=== PATIENT | female | born 1950 | race Asian ===

== ENCOUNTER 2018-10-01 11:48 | Inpatient (IN) | payer MEDICAID, MEDICARE ==
[2018-10-01] VITALS (10 sets, daily range): BP systolic 142–181; BP diastolic 60–84
[~2018-10-01] VITALS: Ht 147.3 cm; Wt 58.7 kg
[2018-10-01 11:57] LABS: BASO % 0 % (0-3); EOS # 0.1 x10^3/uL (0.0-0.7); EOS % 1 % (0-3); HEMATOCRIT 37.8 % (36.0-47.0); HEMOGLOBIN 11.9 g/dL (12.0-15.5); LYMPH # 0.7 x10^3/uL (1.0-4.8); LYMPH % 12 % (24-48); MEAN CORPUSCULAR HEMOGLOBIN 28 pg (25-35); MEAN CORPUSCULAR HGB CONC 32 g/dL (31-37); MEAN CORPUSCULAR VOLUME 90 fL (79-100); MONO # 0.4 x10^3/uL (0.0-1.1); MONO % 7 % (0-9); NEUT # 4.4 x10^3uL (1.8-7.7); NEUT % 79 % (31-73); PLATELET COUNT 195 x10^3/uL (140-400); RED BLOOD COUNT 4.21 x10^6/uL (3.50-5.40); RED CELL DISTRIBUTION WIDTH 15.7 % (11.5-14.5); WHITE BLOOD COUNT 5.6 x10^3/uL (4.0-11.0)
--- NOTE | 2018-10-01 12:09 | RAD ---
Portable chest, 10/01/2018: HISTORY: Generalized weakness Comparison is made to a study from 07/31/2018. The heart is enlarged. There is calcific plaquing of the aorta. The pulmonary vascularity is normal. No pulmonary infiltrate is seen. There is no evidence of pleural fluid. IMPRESSION: 1. Cardiomegaly and aortic atherosclerosis. 2. No acute abnormality is detected. Electronically signed by: Slava Fragoso MD (10/01/2018 12:06 PM) [facility]
[2018-10-01 12:13] LABS: ALBUMIN 3.4 g/dL (3.4-5.0); CALCIUM 8.9 mg/dL (8.5-10.1); DIRECT BILIRUBIN 0.1 mg/dL (0.0-0.2); GFR 3.2; TOTAL BILIRUBIN 0.4 mg/dL (0.2-1.0); TOTAL PROTEIN 6.5 g/dL (6.4-8.2)
[2018-10-01 12:16] LABS: POTASSIUM 6.4 mmol/L (3.5-5.1)
--- NOTE | 2018-10-01 12:18 | PHYS DOC ---
Past Medical History Past Medical History: Hypertension Adult General Chief Complaint Chief Complaint: DIZZY/LIGHT HEADED HPI HPI ED course/MDM/ ROS. 68-year-old female presenting the emergency department today with generalized weakness. She had missed dialysis on Thursday and . She gets dialysis on Thursday. She lives in a longterm who called EMS. On arrival EMS of the patient was hypotensive around 90 systolic without a known baseline. They reported that her blood pressure improved with a small amount of Trendelenburg. She was alert and oriented when they arrived. Review of systems is negative for chest pain shortness of breath abdominal pain nausea vomiting. All other review of systems is negative. On arrival here the patient states does not speak Georgian. Blue phone utilized. She is alert and opens her eyes spontaneously. BP is up to 115-120 systolic. Blood work was drawn. Head CT and chest x-ray are unremarkable. EKG obtained and reviewed by myself shows sinus bradycardia with a prolonged QT. Otherwise ST segments show mild repolarization. Does not meet STEMI criteria. Not suggestive of ACS. Patient's potassium was quite elevated. We initiated calcium albuterol bicarbonate and glucose with insulin. I spoke with the organ teacher Dr. Gutierrez who will get the patient dialyzed today. In the interim, we will admit the patient to the intensive care unit for critically high potassium levels. Current Medications Current Medications Current Medications Medications (Trade) Dose Ordered Sig/Mic Start Time Stop Time Status Last Admin Dose Admin Albuterol Sulfate (Ventolin Neb Soln) 10 mg 1X ONCE 10/01/18 12:30 10/01/18 12:31 DC 10/01/18 12:57 10 MG Calcium Gluconate (Calcium Gluconate) 1,000 mg 1X ONCE 10/01/18 12:30 10/01/18 12:31 DC 10/01/18 13:17 1,000 MG Dextrose (Dextrose 50%-Water Syringe) 25 gm 1X ONCE 10/01/18 12:30 10/01/18 12:31 DC 10/01/18 13:08 25 GM Insulin Human Regular (HumuLIN R VIAL) 10 unit 1X ONCE 10/01/18 12:30 10/01/18 12:31 DC 10/01/18 13:15 10 UNIT Sodium Bicarbonate (Sodium Bicarb Adult 8.4% Syr) 50 meq 1X ONCE 10/01/18 12:30 10/01/18 12:31 DC 10/01/18 12:59 50 MEQ Allergies Allergies Allergies Coded Allergies Type Severity Reaction Last Updated Verified No Known Drug Allergies 10/01/18 No Physical Exam Physical Exam Constitutional: Well developed, well nourished, no acute distress, non-toxic appearance. [] HENT: Normocephalic, atraumatic, bilateral external ears normal, oropharynx moist, no oral exudates, nose normal. [] Eyes: PERRLA, EOMI, conjunctiva normal, no discharge. [] Neck: Normal range of motion, no tenderness, supple, no stridor. [] Cardiovascular:Heart rate regular rhythm, no murmur [] Lungs & Thorax: Bilateral breath sounds clear to auscultation [] Abdomen: Bowel sounds normal, soft, no tenderness, no masses, no pulsatile masses. [] Skin: Warm, dry, no erythema, no rash. [] Back: No tenderness, no CVA tenderness. [] Extremities: No tenderness, no cyanosis, no clubbing, ROM intact, no edema. [] Neurologic: Alert and oriented X 3, normal motor function, normal sensory function, no focal deficits noted. [] Psychologic: Affect normal, judgement normal, mood normal. [] Current Patient Data Vital Signs Vital Signs Date Time Temp Pulse Resp B/P (MAP) Pulse Ox O2 Delivery O2 Flow Rate FiO2 10/01/18 12:58 99 Room Air 10/01/18 11:48 98.6 59 14 116/52 (73) 98.6 Lab Values Laboratory Tests Test 10/01/18 11:50 White Blood Count 5.6 x10^3/uL (4.0-11.0) Red Blood Count 4.21 x10^6/uL (3.50-5.40) Hemoglobin 11.9 g/dL (12.0-15.5) L Hematocrit 37.8 % (36.0-47.0) Mean Corpuscular Volume 90 fL (79-100) Mean Corpuscular Hemoglobin 28 pg (25-35) Mean Corpuscular Hemoglobin Concent 32 g/dL (31-37) Red Cell Distribution Width 15.7 % (11.5-14.5) H Platelet Count 195 x10^3/uL (140-400) Neutrophils (%) (Auto) 79 % (31-73) H Lymphocytes (%) (Auto) 12 % (24-48) L Monocytes (%) (Auto) 7 % (0-9) Eosinophils (%) (Auto) 1 % (0-3) Basophils (%) (Auto) 0 % (0-3) Neutrophils # (Auto) 4.4 x10^3uL (1.8-7.7) Lymphocytes # (Auto) 0.7 x10^3/uL (1.0-4.8) L Monocytes # (Auto) 0.4 x10^3/uL (0.0-1.1) Eosinophils # (Auto) 0.1 x10^3/uL (0.0-0.7) Basophils # (Auto) 0.0 x10^3/uL (0.0-0.2) Sodium Level 138 mmol/L (136-145) Potassium Level 6.4 mmol/L (3.5-5.1) *H Chloride Level 99 mmol/L (98-107) Carbon Dioxide Level 18 mmol/L (21-32) L Anion Gap 21 (6-14) H Blood Urea Nitrogen 113 mg/dL (7-20) H Creatinine 12.0 mg/dL (0.6-1.0) H Estimated GFR (Cockcroft-Gault) 3.2 Glucose Level 103 mg/dL (70-99) H Calcium Level 8.9 mg/dL (8.5-10.1) Total Bilirubin 0.4 mg/dL (0.2-1.0) Direct Bilirubin 0.1 mg/dL (0.0-0.2) Aspartate Amino Transferase (AST) 22 U/L (15-37) Alanine Aminotransferase (ALT) 18 U/L (14-59) Alkaline Phosphatase 77 U/L (46-116) Troponin I Quantitative 0.017 ng/mL (0.000-0.055) UZ-Oqx-A-Type Natriuretic Peptide 52165 pg/mL (0-124) H Total Protein 6.5 g/dL (6.4-8.2) Albumin 3.4 g/dL (3.4-5.0) Lipase 133 U/L (73-393) Laboratory Tests 10/01/18 11:50 Laboratory Tests 10/01/18 11:50 EKG EKG [] Radiology/Procedures Radiology/Procedures [] Course & Med Decision Making Course & Med Decision Making Pertinent Labs and Imaging studies reviewed. (See chart for details) [] Dragon Disclaimer Dragon Disclaimer This electronic medical record was generated, in whole or in part, using a voice recognition dictation system. Departure Departure Impression: Primary Impression: Hyperkalemia Additional Impressions: Metabolic acidosis End stage renal disease Disposition: ADMITTED INPATIENT Admitting Physician: Riky Leach Critical Care Time Critical care time spent was 35 minutes exclusive of procedures. Time was spent evaluating the patient, ordering the administration of medications, reevaluating the patient, discussing with the admitting provider and documenting. Problem Qualifiers CHRIST NOBLES MD Oct 01, 2018 12:18
[2018-10-01] MEDS ORDERED: CALCIUM GLUCONATE 1,000 MG/10 ML VIAL. IVP ONE (12:30)
[2018-10-01] MEDS ORDERED: INSULIN REGULAR 100 UNIT/ML 3ML VIAL. IV ONE (12:30)
[2018-10-01] MEDS ORDERED: ALBUTEROL SULFATE 2.5 MG/3 ML NEBU. CONT NEB ONE (12:30)
[2018-10-01] MEDS ORDERED: SODIUM BICARB ADULT 8.4% 50 MEQ/50 ML DISP.SYRIN. IV ONE (12:30)
[2018-10-01] MEDS ORDERED: DEXTROSE 50% 25 GM / 50ML DISP.SYRIN. IV ONE (12:30)
--- NOTE | 2018-10-01 12:53 | RAD ---
CT HEAD WO CONTRAST History: Generalized weakness, dizziness Comparison: December 21, 2017 Technique: Noncontrast CT imaging was performed of the head. Exposure: One or more of the following individualized dose reduction techniques were utilized for this examination: 1. Automated exposure control 2. Adjustment of the mA and/or kV according to patient size 3. Use of iterative reconstruction technique. Findings: No acute extra-axial or parenchymal hemorrhage is identified. There is no significant intra-axial mass effect, midline shift, or extra-axial fluid collection. The kitchen-white differentiation of the major vascular territories is preserved. The ventricles, sulci, and cisterns are within normal limits in size and configuration. The mastoid air cells and the visualized paranasal sinuses are aerated. No acute calvarial abnormality is identified. There is atherosclerotic calcification bilateral carotid siphons and intradural vertebral arteries. Impression: 1. No acute intracranial abnormality is identified. Electronically signed by: Chaim Bennett MD (10/01/2018 12:50 PM) [id number]
--- NOTE | 2018-10-01 13:15 | PDOC1 ---
History and Physical Date of Admission Date of Admission DATE: 10/01/18 TIME: 13:15 Identification/Chief Complaint Chief Complaint SEEN IN ER ,,68-year-old female presenting the emergency department today with generalized weakness. She had missed dialysis on Thursday and . She gets dialysis on Thursday. She lives in a [facility] who called EMS. On arrival EMS of the patient was hypotensive around 90 systolic without a known baseline. They reported that her blood pressure improved with a small amount of Trendelenburg. She was alert and oriented when they arrived. Review of systems is negative for chest pain shortness of breath abdominal pain nausea vomiting. All other review of systems is negative. On arrival here the patient states does not speak [place]. Blue phone utilized. She is alert and opens her eyes spontaneously. BP is up to 115-120 systolic. Blood work was drawn. Head CT and chest x-ray are unremarkable ADMITTED TO ICU WITH SEVERE HYPERKALEMIA, URGENT DIALYSIS NEEDED Current Medications Current Medications Current Medications Sodium Bicarbonate (Sodium Bicarb Adult 8.4% Syr) 50 meq 1X ONCE IV Last administered on 10/01/18at 12:59; Start 10/01/18 at 12:30; Stop 10/01/18 at 12:31 ; Status DC Calcium Gluconate (Calcium Gluconate) 1,000 mg 1X ONCE IVP ; Start 10/01/18 at 12:30; Stop 10/01/18 at 12:31; Status DC Albuterol Sulfate (Ventolin Neb Soln) 10 mg 1X ONCE CONT NEB Last administered on 10/01/18at 12:57; Start 10/01/18 at 12:30; Stop 10/01/18 at 12:31 ; Status DC Insulin Human Regular (HumuLIN R VIAL) 10 unit 1X ONCE IV ; Start 10/01/18 at 12:30; Stop 10/01/18 at 12:31; Status DC Dextrose (Dextrose 50%-Water Syringe) 25 gm 1X ONCE IV Last administered on at 13:08; Start 10/01/18 at 12:30; Stop 10/01/18 at 12:31; Status DC Morphine Sulfate (Morphine Sulfate) 2 mg PRN Q2HR PRN IV PAIN; Start 10/01/18 at 13:15; Stop 10/02/18 at 13:14 Allergies Allergies: Coded Allergies: No Known Drug Allergies (Unverified , 4/19/19) ROS General: YES: Fatigue PSYCHOLOGICAL ROS: No: Anxiety, Behavioral Disorder, Concentration difficultie , Decreased libido, Depression, Disorientation, Hallucinations, Hostility, Irritablity, Memory difficulties, Mood Swings, Obsessive thoughts, Physical abuse, Sexual abuse, Sleep disturbances, Suicidal ideation, Other Eyes: No Blurry vision, No Decreased vision, No Double vision, No Dry eyes, No Excessive tearing, No Eye Pain, No Itchy Eyes, No Loss of vision, No Photophobia , No Scotomata, No Uses contacts, No Uses glasses, No Other HEENT: No: Heacaches, Visual Changes, Hearing change, Nasal congestion, Nasal discharge, Oral lesions, Sinus pain, Sore Throat, Epistaxis, Sneezing, Snoring, Tinnitus, Vertigo, Vocal changes, Other ALLERGY AND IMMUNOLOGY: No: Hives, Insect Bite Sensitivity, Itchy/Watery Eyes, Nasal Congestion, Post Nasal Drip, Seasonal Allergies, Other Hematological and Lymphatic: No: Bleeding Problems, Blood Clots, Blood Transfusions, Brusing, Night Sweats, Pallor, Swollen Lymph Nodes, Other ENDOCRINE: No: Breast Changes, Galactorrhea, Hair Pattern Changes, Hot Flashes , Malaise/lethargy, Mood Swings, Palpitations, Polydipsia/polyuria, Skin Changes , Temperature Intolerance, Unexpected Weight Changes, Other Breast: No New/Changing Breast Lumps, No Nipple changes, No Nipple discharge, No Other Respiratory: No: Cough, Hemoptysis, Orthopnea, Pleuritic Pain, Shortness of breath, SOB with excertion, Sputum Changes, Stridor, Tachypnea, Wheezing, Other Cardiovascular: No Chest Pain, No Palpitations, No Orthopnea, No Paroxysmal Noc. Dyspnea, No Edema, No Lt Headedness, No Other Musculoskeletal: Yes Joint Stiffness Neurological: Yes Dizziness; No Behavorial Changes, No Bowel/Bladder ControlChng, No Confusion, No Gait Disturbance, No Headaches, No Impaired Coord/balance, No Memory Loss, No Numbness/Tingling, No Seizures, No Speech Problems, No Tremors, No Visual Changes, No Weakness, No Other Skin: Yes Dry Skin; No Eczema, No Hair Changes, No Lumps, No Mole Changes, No Mottling, No Nail Changes, No Pruritus, No Rash, No Skin Lesion Changes, No Other, No Acne Physical Exam Physical Exam Physical Exam Physical Exam Constitutional: Well developed, well nourished, MOD acute distress, non-toxic appearance. [] HENT: Normocephalic, atraumatic, bilateral external ears normal, oropharynx moist, no oral exudates, nose normal. [] Eyes: PERRLA, EOMI, conjunctiva normal, no discharge. [] Neck: Normal range of motion, no tenderness, supple, no stridor. [] Cardiovascular:Heart rate regular rhythm, no murmur [] Lungs & Thorax: Bilateral breath sounds clear to auscultation [] Abdomen: Bowel sounds normal, soft, no tenderness, no masses, no pulsatile masses. [] Skin: Warm, dry, no erythema, no rash. [] Back: No tenderness, no CVA tenderness. [] Extremities: No tenderness, no cyanosis, no clubbing, ROM intact, no edema. [] Neurologic: Alert and oriented X 3, normal motor function, normal sensory function, no focal deficits noted. [] Psychologic: Affect normal, judgement normal, mood normal. [] General: Alert, Cooperative Lungs: Clear to auscultation Breasts: Not examined Rectal Exam: not examined PELVIC: Examination not indicated Extremities: No cyanosis Skin: No breakdown Vitals Vitals Vital Signs Date Time Temp Pulse Resp B/P (MAP) Pulse Ox O2 Delivery O2 Flow Rate FiO2 10/01/18 12:58 99 Room Air 10/01/18 11:48 98.6 59 14 116/52 (73) 98.6 Labs Labs Laboratory Tests Test 10/01/18 11:50 White Blood Count 5.6 x10^3/uL (4.0-11.0) Red Blood Count 4.21 x10^6/uL (3.50-5.40) Hemoglobin 11.9 g/dL (12.0-15.5) Hematocrit 37.8 % (36.0-47.0) Mean Corpuscular Volume 90 fL (79-100) Mean Corpuscular Hemoglobin 28 pg (25-35) Mean Corpuscular Hemoglobin Concent 32 g/dL (31-37) Red Cell Distribution Width 15.7 % (11.5-14.5) Platelet Count 195 x10^3/uL (140-400) Neutrophils (%) (Auto) 79 % (31-73) Lymphocytes (%) (Auto) 12 % (24-48) Monocytes (%) (Auto) 7 % (0-9) Eosinophils (%) (Auto) 1 % (0-3) Basophils (%) (Auto) 0 % (0-3) Neutrophils # (Auto) 4.4 x10^3uL (1.8-7.7) Lymphocytes # (Auto) 0.7 x10^3/uL (1.0-4.8) Monocytes # (Auto) 0.4 x10^3/uL (0.0-1.1) Eosinophils # (Auto) 0.1 x10^3/uL (0.0-0.7) Basophils # (Auto) 0.0 x10^3/uL (0.0-0.2) Sodium Level 138 mmol/L (136-145) Potassium Level 6.4 mmol/L (3.5-5.1) Chloride Level 99 mmol/L (98-107) Carbon Dioxide Level 18 mmol/L (21-32) Anion Gap 21 (6-14) Blood Urea Nitrogen 113 mg/dL (7-20) Creatinine 12.0 mg/dL (0.6-1.0) Estimated GFR (Cockcroft-Gault) 3.2 Glucose Level 103 mg/dL (70-99) Calcium Level 8.9 mg/dL (8.5-10.1) Total Bilirubin 0.4 mg/dL (0.2-1.0) Direct Bilirubin 0.1 mg/dL (0.0-0.2) Aspartate Amino Transf (AST/SGOT) 22 U/L (15-37) Alanine Aminotransferase (ALT/SGPT) 18 U/L (14-59) Alkaline Phosphatase 77 U/L (46-116) Troponin I Quantitative 0.017 ng/mL (0.000-0.055) HC-Nfa-T-Type Natriuretic Peptide 18685 pg/mL (0-124) Total Protein 6.5 g/dL (6.4-8.2) Albumin 3.4 g/dL (3.4-5.0) Lipase 133 U/L (73-393) Laboratory Tests Test 10/01/18 11:50 White Blood Count 5.6 x10^3/uL (4.0-11.0) Red Blood Count 4.21 x10^6/uL (3.50-5.40) Hemoglobin 11.9 g/dL (12.0-15.5) Hematocrit 37.8 % (36.0-47.0) Mean Corpuscular Volume 90 fL (79-100) Mean Corpuscular Hemoglobin 28 pg (25-35) Mean Corpuscular Hemoglobin Concent 32 g/dL (31-37) Red Cell Distribution Width 15.7 % (11.5-14.5) Platelet Count 195 x10^3/uL (140-400) Neutrophils (%) (Auto) 79 % (31-73) Lymphocytes (%) (Auto) 12 % (24-48) Monocytes (%) (Auto) 7 % (0-9) Eosinophils (%) (Auto) 1 % (0-3) Basophils (%) (Auto) 0 % (0-3) Neutrophils # (Auto) 4.4 x10^3uL (1.8-7.7) Lymphocytes # (Auto) 0.7 x10^3/uL (1.0-4.8) Monocytes # (Auto) 0.4 x10^3/uL (0.0-1.1) Eosinophils # (Auto) 0.1 x10^3/uL (0.0-0.7) Basophils # (Auto) 0.0 x10^3/uL (0.0-0.2) Sodium Level 138 mmol/L (136-145) Potassium Level 6.4 mmol/L (3.5-5.1) Chloride Level 99 mmol/L (98-107) Carbon Dioxide Level 18 mmol/L (21-32) Anion Gap 21 (6-14) Blood Urea Nitrogen 113 mg/dL (7-20) Creatinine 12.0 mg/dL (0.6-1.0) Estimated GFR (Cockcroft-Gault) 3.2 Glucose Level 103 mg/dL (70-99) Calcium Level 8.9 mg/dL (8.5-10.1) Total Bilirubin 0.4 mg/dL (0.2-1.0) Direct Bilirubin 0.1 mg/dL (0.0-0.2) Aspartate Amino Transf (AST/SGOT) 22 U/L (15-37) Alanine Aminotransferase (ALT/SGPT) 18 U/L (14-59) Alkaline Phosphatase 77 U/L (46-116) Troponin I Quantitative 0.017 ng/mL (0.000-0.055) EW-Avt-G-Type Natriuretic Peptide 97476 pg/mL (0-124) Total Protein 6.5 g/dL (6.4-8.2) Albumin 3.4 g/dL (3.4-5.0) Lipase 133 U/L (73-393) Images Images CT HEAD WO CONTRAST History: Generalized weakness, dizziness Comparison: December 21, 2017 Technique: Noncontrast CT imaging was performed of the head. Exposure: One or more of the following individualized dose reduction techniques were utilized for this examination: 1. Automated exposure control 2. Adjustment of the mA and/or kV according to patient size 3. Use of iterative reconstruction technique. Findings: No acute extra-axial or parenchymal hemorrhage is identified. There is no significant intra-axial mass effect, midline shift, or extra-axial fluid collection. The kitchen-white differentiation of the major vascular territories is preserved. The ventricles, sulci, and cisterns are within normal limits in size and configuration. The mastoid air cells and the visualized paranasal sinuses are aerated. No acute calvarial abnormality is identified. There is atherosclerotic calcification bilateral carotid siphons and intradural vertebral arteries. Impression: 1. No acute intracranial abnormality is identified. Electronically signed by: Chaim Bennett MD (10/01/2018 12:50 PM) [id number] VTE Prophylaxis Ordered VTE Prophylaxis Devices: Yes VTE Pharmacological Prophylaxi: Yes Assessment/Plan Assessment/Plan IMPRESSION ESRD ON DIALYSIS NONCOMPLIANCE WITH DIALYSIS hypertension PLAN ICU BED URGENT DIALYSIS Nephrology consult 43 MIN CC TIME JAS LAGUNA MD Oct 01, 2018 13:15
[2018-10-01] MEDS ORDERED: ASPI81TA50 PO (14:08)
[2018-10-01] MEDS ORDERED: SERT25TA PO (14:08)
[2018-10-01] MEDS ORDERED: LOSA-73 PO (14:08)
[2018-10-01] MEDS ORDERED: AMLO10TA8 PO (14:08)
[2018-10-01] MEDS ORDERED: CARV25TA2 PO (14:08)
[2018-10-01] MEDS ORDERED: SODI650T PO (14:08)
[2018-10-01] MEDS ORDERED: CLOP75TA PO (14:08)
[2018-10-01] MEDS ORDERED: CRESTOR10 MG PO (14:08)
[2018-10-01] MEDS ORDERED: SEVE800T9 PO (14:08)
[2018-10-01] MEDS ORDERED: LOPE2CAP PO (14:08)
--- NOTE | 2018-10-01 14:29 | PDOC2 ---
CONSULT Date of Consult Date of Consult DATE: 10/01/18 TIME: 14:18 Reason for Consult Reason for Consult: ESRD Source Source: Chart review, Patient History of Present Illness Reason for Visit: Hx Obtained from chart review, Pt doesn't speak citizen of [place]-- 68-year-old female presenting the emergency department today with generalized weakness. She had missed dialysis on Thursday and . She lives in a shelter who called EMS. On arrival EMS of the patient was hypotensive around 90 systolic without a known baseline. They reported that her blood pressure improved with a small amount of Trendelenburg. She was alert and oriented when they arrived. No chest pain shortness of breath abdominal pain nausea vomiting. All other review of systems is negative. She is alert and opens her eyes spontaneously. BP up to 115-120 systolic in ED[address]Head CT and chest x-ray are unremarkable. EKG read by ER MD shows sinus bradycardia with a prolonged QT. Otherwise ST segments show mild repolarization. Blood work High K, BUN , Low bicarb , given calcium albuterol bicarbonate and glucose with insulin Seen on HD tolerating well. Current Problem List Problem List Problems Medical Problems: (1) End stage renal disease Status: Acute (2) Hyperkalemia Status: Acute (3) Metabolic acidosis Status: Acute Current Medications Current Medications Current Medications Sodium Bicarbonate (Sodium Bicarb Adult 8.4% Syr) 50 meq 1X ONCE IV Last administered on 10/01/18at 12:59; Start 10/01/18 at 12:30; Stop 10/01/18 at 12:31 ; Status DC Calcium Gluconate (Calcium Gluconate) 1,000 mg 1X ONCE IVP Last administered on 10/01/18at 13:17; Start 10/01/18 at 12:30; Stop 10/01/18 at 12:31; Status DC Albuterol Sulfate (Ventolin Neb Soln) 10 mg 1X ONCE CONT NEB Last administered on 10/01/18at 12:57; Start 10/01/18 at 12:30; Stop 10/01/18 at 12:31 ; Status DC Insulin Human Regular (HumuLIN R VIAL) 10 unit 1X ONCE IV Last administered on 10/01/18at 13:15; Start 10/01/18 at 12:30; Stop 10/01/18 at 12:31; Status DC Dextrose (Dextrose 50%-Water Syringe) 25 gm 1X ONCE IV Last administered on at 13:08; Start 10/01/18 at 12:30; Stop 10/01/18 at 12:31; Status DC Morphine Sulfate (Morphine Sulfate) 2 mg PRN Q2HR PRN IV PAIN; Start 10/01/18 at 13:15; Stop 10/02/18 at 13:14 Active Scripts Active Reported Loperamide (Loperamide Hcl) 2 Mg Capsule 2 Mg PO PRN Sodium Bicarbonate 650 Mg Tablet 2 Tab PO BID Renvela (Sevelamer Carbonate) 800 Mg Tablet 3 Tab PO TID Zoloft (Sertraline Hcl) 25 Mg Tablet 1 Tab PO DAILY Crestor (Rosuvastatin Calcium) 10 Mg Tablet 10 Mg PO HS Losartan Potassium 50 Mg Tablet 50 Mg PO BID Clopidogrel (Clopidogrel Bisulfate) 75 Mg Tablet 1 Tab PO DAILY Carvedilol 25 Mg Tablet 25 Mg PO BIDWMEALS Aspir-Low (Aspirin) 81 Mg Tablet.dr 1 Tab PO DAILY Amlodipine Besylate 10 Mg Tablet 10 Mg PO DAILY Allergies Allergies: Coded Allergies: No Known Drug Allergies (Unverified , 10/01/18) ROS Review of System Ass per HPI, rest unable to Obtain Physical Exam Physical Exam GEN: NAD HEEN: OM moist NECK: supple CVS: S1S2, RESP: No Rales, No Rhonchi,No Acc. 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 Hyperkalemia- Temporizing measures in ER HD today Metabolic acidosis - HD Hypotensive in [place] BP improved in ER Multiple antihypertensives per home med list Labs Labs Laboratory Tests Test 10/01/18 11:50 White Blood Count 5.6 x10^3/uL (4.0-11.0) Red Blood Count 4.21 x10^6/uL (3.50-5.40) Hemoglobin 11.9 g/dL (12.0-15.5) Hematocrit 37.8 % (36.0-47.0) Mean Corpuscular Volume 90 fL (79-100) Mean Corpuscular Hemoglobin 28 pg (25-35) Mean Corpuscular Hemoglobin Concent 32 g/dL (31-37) Red Cell Distribution Width 15.7 % (11.5-14.5) Platelet Count 195 x10^3/uL (140-400) Neutrophils (%) (Auto) 79 % (31-73) Lymphocytes (%) (Auto) 12 % (24-48) Monocytes (%) (Auto) 7 % (0-9) Eosinophils (%) (Auto) 1 % (0-3) Basophils (%) (Auto) 0 % (0-3) Neutrophils # (Auto) 4.4 x10^3uL (1.8-7.7) Lymphocytes # (Auto) 0.7 x10^3/uL (1.0-4.8) Monocytes # (Auto) 0.4 x10^3/uL (0.0-1.1) Eosinophils # (Auto) 0.1 x10^3/uL (0.0-0.7) Basophils # (Auto) 0.0 x10^3/uL (0.0-0.2) Sodium Level 138 mmol/L (136-145) Potassium Level 6.4 mmol/L (3.5-5.1) Chloride Level 99 mmol/L (98-107) Carbon Dioxide Level 18 mmol/L (21-32) Anion Gap 21 (6-14) Blood Urea Nitrogen 113 mg/dL (7-20) Creatinine 12.0 mg/dL (0.6-1.0) Estimated GFR (Cockcroft-Gault) 3.2 Glucose Level 103 mg/dL (70-99) Calcium Level 8.9 mg/dL (8.5-10.1) Total Bilirubin 0.4 mg/dL (0.2-1.0) Direct Bilirubin 0.1 mg/dL (0.0-0.2) Aspartate Amino Transf (AST/SGOT) 22 U/L (15-37) Alanine Aminotransferase (ALT/SGPT) 18 U/L (14-59) Alkaline Phosphatase 77 U/L (46-116) Troponin I Quantitative 0.017 ng/mL (0.000-0.055) MD-Xnn-Y-Type Natriuretic Peptide 31077 pg/mL (0-124) Total Protein 6.5 g/dL (6.4-8.2) Albumin 3.4 g/dL (3.4-5.0) Lipase 133 U/L (73-393) Laboratory Tests Test 10/01/18 11:50 White Blood Count 5.6 x10^3/uL (4.0-11.0) Red Blood Count 4.21 x10^6/uL (3.50-5.40) Hemoglobin 11.9 g/dL (12.0-15.5) Hematocrit 37.8 % (36.0-47.0) Mean Corpuscular Volume 90 fL (79-100) Mean Corpuscular Hemoglobin 28 pg (25-35) Mean Corpuscular Hemoglobin Concent 32 g/dL (31-37) Red Cell Distribution Width 15.7 % (11.5-14.5) Platelet Count 195 x10^3/uL (140-400) Neutrophils (%) (Auto) 79 % (31-73) Lymphocytes (%) (Auto) 12 % (24-48) Monocytes (%) (Auto) 7 % (0-9) Eosinophils (%) (Auto) 1 % (0-3) Basophils (%) (Auto) 0 % (0-3) Neutrophils # (Auto) 4.4 x10^3uL (1.8-7.7) Lymphocytes # (Auto) 0.7 x10^3/uL (1.0-4.8) Monocytes # (Auto) 0.4 x10^3/uL (0.0-1.1) Eosinophils # (Auto) 0.1 x10^3/uL (0.0-0.7) Basophils # (Auto) 0.0 x10^3/uL (0.0-0.2) Sodium Level 138 mmol/L (136-145) Potassium Level 6.4 mmol/L (3.5-5.1) Chloride Level 99 mmol/L (98-107) Carbon Dioxide Level 18 mmol/L (21-32) Anion Gap 21 (6-14) Blood Urea Nitrogen 113 mg/dL (7-20) Creatinine 12.0 mg/dL (0.6-1.0) Estimated GFR (Cockcroft-Gault) 3.2 Glucose Level 103 mg/dL (70-99) Calcium Level 8.9 mg/dL (8.5-10.1) Total Bilirubin 0.4 mg/dL (0.2-1.0) Direct Bilirubin 0.1 mg/dL (0.0-0.2) Aspartate Amino Transf (AST/SGOT) 22 U/L (15-37) Alanine Aminotransferase (ALT/SGPT) 18 U/L (14-59) Alkaline Phosphatase 77 U/L (46-116) Troponin I Quantitative 0.017 ng/mL (0.000-0.055) EK-Jbs-V-Type Natriuretic Peptide 99609 pg/mL (0-124) Total Protein 6.5 g/dL (6.4-8.2) Albumin 3.4 g/dL (3.4-5.0) Lipase 133 U/L (73-393) Review All relevant outside records, renal labs, imaging studies, telemetry/EKG's were reviewed. Images Images CxR-- Comparison is made to a study from 07/31/2018. The heart is enlarged. There is calcific plaquing of the aorta. The pulmonary vascularity is normal. No pulmonary infiltrate is seen. There is no evidence of pleural fluid. IMPRESSION: 1. Cardiomegaly and aortic atherosclerosis. 2. No acute abnormality is detected. MARCEL TAN MD Oct 01, 2018 14:29
[2018-10-01] MEDS ORDERED: IV NORMAL SALINE 1000ML BAG 1,000 ML IV PRN ×2 (15:14)
[2018-10-01] MEDS ORDERED: DIALYSIS PATIENT. MC PRN (15:15)
[2018-10-01] MEDS ORDERED: diphenhydrAMINE 50 MG/ML VIAL IV PRN ×2 (15:15)
[2018-10-01] MEDS: HEPARIN for SUB-Q USE 5,000 UNIT/ML VIAL. SQ SCH ×2 (15:30→20:56)
[2018-10-01] MEDS: ATORVASTATIN CALCIUM 40 MG TABLET. PO SCH (20:46)
[2018-10-01] MEDS: LOSARTAN POTASSIUM 50 MG TABLET. PO SCH (20:47)
[2018-10-01] MEDS: CARVEDILOL 12.5 MG TABLET. PO SCH (20:47)
[2018-10-01] MEDS: SODIUM BICARBONATE 650 MG TABLET. PO SCH (20:48)
[2018-10-01] MEDS: SEVELAMER CARBONATE 800 MG TABLET. PO SCH (20:48)
[2018-10-01] MEDS: MORPHINE SULFATE 2 MG/ML VIAL. IV PRN (20:49)
[2018-10-01 21:42] LABS: CALCIUM 8.6 mg/dL (8.5-10.1); CREATININE 6.3 mg/dL (0.6-1.0); GFR 6.6; POTASSIUM 4.3 mmol/L (3.5-5.1)
[2018-10-02] VITALS (14 sets, daily range): BP systolic 102–165; BP diastolic 53–83
[2018-10-02 04:43] LABS: BASO % 0 % (0-3); EOS # 0.1 x10^3/uL (0.0-0.7); EOS % 3 % (0-3); HEMATOCRIT 36.7 % (36.0-47.0); HEMOGLOBIN 12.1 g/dL (12.0-15.5); LYMPH # 0.6 x10^3/uL (1.0-4.8); LYMPH % 21 % (24-48); MEAN CORPUSCULAR HEMOGLOBIN 29 pg (25-35); MEAN CORPUSCULAR HGB CONC 33 g/dL (31-37); MEAN CORPUSCULAR VOLUME 88 fL (79-100); MONO # 0.5 x10^3/uL (0.0-1.1); MONO % 16 % (0-9); NEUT # 1.7 x10^3uL (1.8-7.7); NEUT % 59 % (31-73); PLATELET COUNT 170 x10^3/uL (140-400); RED BLOOD COUNT 4.17 x10^6/uL (3.50-5.40); RED CELL DISTRIBUTION WIDTH 15.7 % (11.5-14.5); WHITE BLOOD COUNT 2.9 x10^3/uL (4.0-11.0)
[2018-10-02 05:34] LABS: ALBUMIN 3.2 g/dL (3.4-5.0); ALBUMIN/GLOBULIN RATIO 0.9 (1.0-1.7); CALCIUM 8.8 mg/dL (8.5-10.1); CREATININE 7.2 mg/dL (0.6-1.0); GFR 5.7; POTASSIUM 4.4 mmol/L (3.5-5.1); TOTAL BILIRUBIN 0.3 mg/dL (0.2-1.0); TOTAL PROTEIN 6.7 g/dL (6.4-8.2)
[2018-10-02] MEDS: HEPARIN for SUB-Q USE 5,000 UNIT/ML VIAL. SQ SCH ×3 (06:27→21:06)
[2018-10-02] MEDS ORDERED: ACETAMINOPHEN 500 MG TABLET PO PRN (07:00)
[2018-10-02] MEDS ORDERED: IV NORMAL SALINE 1000ML BAG 1,000 ML IV PRN ×2 (07:00)
[2018-10-02] MEDS: SEVELAMER CARBONATE 800 MG TABLET. PO SCH ×3 (08:00→17:41)
[2018-10-02] MEDS: CARVEDILOL 12.5 MG TABLET. PO SCH ×2 (08:00→17:41)
--- NOTE | 2018-10-02 08:54 | PDOC ---
PROGRESS NOTES Chief Complaint Chief Complaint A/P: Leukopenia - new, no obvious source of infection. Will monitor ESRD ON DIALYSIS - repeat session today Bradycardia - improved after dialysis session Hypotension - improved overnight, held antihypertensives H/o HTN - will monitor, reconcile SNF meds - losartan, amlodipine, coreg CAD - on coreg, ASA, statin Depression - cont zoloft Acute hypoxic respiratory failure - likely 2/2 fluid overload Diastolic CHF exacerbation - cont BB, losartan, ASA, statin. UF per dialysis sessions, repeat today FEN - Renal diet PPX - heparin FULL CODE Can downgrade from ICU to TELEMETRY History of Present Illness History of Present Illness 68-year-old female presenting the emergency department 10/01/18 with generalized weakness. She had missed dialysis on Thursday and . She lives in a half-way who called EMS. On arrival EMS of the patient was hypotensive around 90 systolic without a known baseline. They reported that her blood pressure improved with a small amount of Trendelenburg. She was alert and oriented when they arrived. No chest pain shortness of breath abdominal pain nausea vomiting. All other review of systems is negative. Found with K of 6.4 and EKG showing sinus bradycardia with a prolonged QT. Otherwise ST segments show mild repolarization. Given calcium albuterol bicarbonate and glucose with insulin with urgent dialysis session yesterday. Used garment mender phone, [place] [phone] this morning to translate French. She is feeling weak and sore all over as well as intense pruritus. Labs improved. WBC is 2.9, ANC 1.7. Vitals Vitals Vital Signs Date Time Temp Pulse Resp B/P (MAP) Pulse Ox O2 Delivery O2 Flow Rate FiO2 10/02/18 08:00 Nasal Cannula 1.0 10/02/18 07:22 99.3 63 17 149/66 (93) 95 99.3 Physical Exam General: Alert, Cooperative Heart: Regular rate, Normal S1, Normal S2 Lungs: Clear, Wheezing Abdomen: Normal bowel sounds, Soft Extremities: No cyanosis Skin: No breakdown Labs LABS Laboratory Tests Test 10/01/18 11:50 10/01/18 14:23 10/01/18 20:45 10/02/18 04:00 White Blood Count 5.6 x10^3/uL (4.0-11.0) 2.9 x10^3/uL (4.0-11.0) Red Blood Count 4.21 x10^6/uL (3.50-5.40) 4.17 x10^6/uL (3.50-5.40) Hemoglobin 11.9 g/dL (12.0-15.5) 12.1 g/dL (12.0-15.5) Hematocrit 37.8 % (36.0-47.0) 36.7 % (36.0-47.0) Mean Corpuscular Volume 90 fL (79-100) 88 fL (79-100) Mean Corpuscular Hemoglobin 28 pg (25-35) 29 pg (25-35) Mean Corpuscular Hemoglobin Concent 32 g/dL (31-37) 33 g/dL (31-37) Red Cell Distribution Width 15.7 % (11.5-14.5) 15.7 % (11.5-14.5) Platelet Count 195 x10^3/uL (140-400) 170 x10^3/uL (140-400) Neutrophils (%) (Auto) 79 % (31-73) 59 % (31-73) Lymphocytes (%) (Auto) 12 % (24-48) 21 % (24-48) Monocytes (%) (Auto) 7 % (0-9) 16 % (0-9) Eosinophils (%) (Auto) 1 % (0-3) 3 % (0-3) Basophils (%) (Auto) 0 % (0-3) 0 % (0-3) Neutrophils # (Auto) 4.4 x10^3uL (1.8-7.7) 1.7 x10^3uL (1.8-7.7) Lymphocytes # (Auto) 0.7 x10^3/uL (1.0-4.8) 0.6 x10^3/uL (1.0-4.8) Monocytes # (Auto) 0.4 x10^3/uL (0.0-1.1) 0.5 x10^3/uL (0.0-1.1) Eosinophils # (Auto) 0.1 x10^3/uL (0.0-0.7) 0.1 x10^3/uL (0.0-0.7) Basophils # (Auto) 0.0 x10^3/uL (0.0-0.2) 0.0 x10^3/uL (0.0-0.2) Sodium Level 138 mmol/L (136-145) 139 mmol/L (136-145) 140 mmol/L (136-145) Potassium Level 6.4 mmol/L (3.5-5.1) 4.3 mmol/L (3.5-5.1) 4.4 mmol/L (3.5-5.1) Chloride Level 99 mmol/L (98-107) 99 mmol/L (98-107) 99 mmol/L (98-107) Carbon Dioxide Level 18 mmol/L (21-32) 31 mmol/L (21-32) 31 mmol/L (21-32) Anion Gap 21 (6-14) 9 (6-14) 10 (6-14) Blood Urea Nitrogen 113 mg/dL (7-20) 42 mg/dL (7-20) 50 mg/dL (7-20) Creatinine 12.0 mg/dL (0.6-1.0) 6.3 mg/dL (0.6-1.0) 7.2 mg/dL (0.6-1.0) Estimated GFR (Cockcroft-Gault) 3.2 6.6 5.7 Glucose Level 103 mg/dL (70-99) 115 mg/dL (70-99) 102 mg/dL (70-99) Calcium Level 8.9 mg/dL (8.5-10.1) 8.6 mg/dL (8.5-10.1) 8.8 mg/dL (8.5-10.1) Total Bilirubin 0.4 mg/dL (0.2-1.0) 0.3 mg/dL (0.2-1.0) Direct Bilirubin 0.1 mg/dL (0.0-0.2) Aspartate Amino Transf (AST/SGOT) 22 U/L (15-37) 23 U/L (15-37) Alanine Aminotransferase (ALT/SGPT) 18 U/L (14-59) 16 U/L (14-59) Alkaline Phosphatase 77 U/L (46-116) 71 U/L (46-116) Troponin I Quantitative 0.017 ng/mL (0.000-0.055) AH-Jpi-P-Type Natriuretic Peptide 54440 pg/mL (0-124) Total Protein 6.5 g/dL (6.4-8.2) 6.7 g/dL (6.4-8.2) Albumin 3.4 g/dL (3.4-5.0) 3.2 g/dL (3.4-5.0) Lipase 133 U/L (73-393) Glucose (Fingerstick) 166 mg/dL (70-99) BUN/Creatinine Ratio 7 (6-20) Albumin/Globulin Ratio 0.9 (1.0-1.7) Assessment and Plan Assessmemt and Plan Problems Medical Problems: (1) End stage renal disease Status: Acute (2) Hyperkalemia Status: Acute (3) Metabolic acidosis Status: Acute Comment Review of Relevant I have reviewed the following items shine (where applicable) has been applied. Labs Laboratory Tests Test 10/01/18 11:50 10/01/18 14:23 10/01/18 20:45 10/02/18 04:00 White Blood Count 5.6 x10^3/uL (4.0-11.0) 2.9 x10^3/uL (4.0-11.0) Red Blood Count 4.21 x10^6/uL (3.50-5.40) 4.17 x10^6/uL (3.50-5.40) Hemoglobin 11.9 g/dL (12.0-15.5) 12.1 g/dL (12.0-15.5) Hematocrit 37.8 % (36.0-47.0) 36.7 % (36.0-47.0) Mean Corpuscular Volume 90 fL (79-100) 88 fL (79-100) Mean Corpuscular Hemoglobin 28 pg (25-35) 29 pg (25-35) Mean Corpuscular Hemoglobin Concent 32 g/dL (31-37) 33 g/dL (31-37) Red Cell Distribution Width 15.7 % (11.5-14.5) 15.7 % (11.5-14.5) Platelet Count 195 x10^3/uL (140-400) 170 x10^3/uL (140-400) Neutrophils (%) (Auto) 79 % (31-73) 59 % (31-73) Lymphocytes (%) (Auto) 12 % (24-48) 21 % (24-48) Monocytes (%) (Auto) 7 % (0-9) 16 % (0-9) Eosinophils (%) (Auto) 1 % (0-3) 3 % (0-3) Basophils (%) (Auto) 0 % (0-3) 0 % (0-3) Neutrophils # (Auto) 4.4 x10^3uL (1.8-7.7) 1.7 x10^3uL (1.8-7.7) Lymphocytes # (Auto) 0.7 x10^3/uL (1.0-4.8) 0.6 x10^3/uL (1.0-4.8) Monocytes # (Auto) 0.4 x10^3/uL (0.0-1.1) 0.5 x10^3/uL (0.0-1.1) Eosinophils # (Auto) 0.1 x10^3/uL (0.0-0.7) 0.1 x10^3/uL (0.0-0.7) Basophils # (Auto) 0.0 x10^3/uL (0.0-0.2) 0.0 x10^3/uL (0.0-0.2) Sodium Level 138 mmol/L (136-145) 139 mmol/L (136-145) 140 mmol/L (136-145) Potassium Level 6.4 mmol/L (3.5-5.1) 4.3 mmol/L (3.5-5.1) 4.4 mmol/L (3.5-5.1) Chloride Level 99 mmol/L (98-107) 99 mmol/L (98-107) 99 mmol/L (98-107) Carbon Dioxide Level 18 mmol/L (21-32) 31 mmol/L (21-32) 31 mmol/L (21-32) Anion Gap 21 (6-14) 9 (6-14) 10 (6-14) Blood Urea Nitrogen 113 mg/dL (7-20) 42 mg/dL (7-20) 50 mg/dL (7-20) Creatinine 12.0 mg/dL (0.6-1.0) 6.3 mg/dL (0.6-1.0) 7.2 mg/dL (0.6-1.0) Estimated GFR (Cockcroft-Gault) 3.2 6.6 5.7 Glucose Level 103 mg/dL (70-99) 115 mg/dL (70-99) 102 mg/dL (70-99) Calcium Level 8.9 mg/dL (8.5-10.1) 8.6 mg/dL (8.5-10.1) 8.8 mg/dL (8.5-10.1) Total Bilirubin 0.4 mg/dL (0.2-1.0) 0.3 mg/dL (0.2-1.0) Direct Bilirubin 0.1 mg/dL (0.0-0.2) Aspartate Amino Transf (AST/SGOT) 22 U/L (15-37) 23 U/L (15-37) Alanine Aminotransferase (ALT/SGPT) 18 U/L (14-59) 16 U/L (14-59) Alkaline Phosphatase 77 U/L (46-116) 71 U/L (46-116) Troponin I Quantitative 0.017 ng/mL (0.000-0.055) UX-Wnc-T-Type Natriuretic Peptide 15086 pg/mL (0-124) Total Protein 6.5 g/dL (6.4-8.2) 6.7 g/dL (6.4-8.2) Albumin 3.4 g/dL (3.4-5.0) 3.2 g/dL (3.4-5.0) Lipase 133 U/L (73-393) Glucose (Fingerstick) 166 mg/dL (70-99) BUN/Creatinine Ratio 7 (6-20) Albumin/Globulin Ratio 0.9 (1.0-1.7) Laboratory Tests Test 10/01/18 11:50 10/01/18 14:23 10/01/18 20:45 10/02/18 04:00 White Blood Count 5.6 x10^3/uL (4.0-11.0) 2.9 x10^3/uL (4.0-11.0) Red Blood Count 4.21 x10^6/uL (3.50-5.40) 4.17 x10^6/uL (3.50-5.40) Hemoglobin 11.9 g/dL (12.0-15.5) 12.1 g/dL (12.0-15.5) Hematocrit 37.8 % (36.0-47.0) 36.7 % (36.0-47.0) Mean Corpuscular Volume 90 fL (79-100) 88 fL (79-100) Mean Corpuscular Hemoglobin 28 pg (25-35) 29 pg (25-35) Mean Corpuscular Hemoglobin Concent 32 g/dL (31-37) 33 g/dL (31-37) Red Cell Distribution Width 15.7 % (11.5-14.5) 15.7 % (11.5-14.5) Platelet Count 195 x10^3/uL (140-400) 170 x10^3/uL (140-400) Neutrophils (%) (Auto) 79 % (31-73) 59 % (31-73) Lymphocytes (%) (Auto) 12 % (24-48) 21 % (24-48) Monocytes (%) (Auto) 7 % (0-9) 16 % (0-9) Eosinophils (%) (Auto) 1 % (0-3) 3 % (0-3) Basophils (%) (Auto) 0 % (0-3) 0 % (0-3) Neutrophils # (Auto) 4.4 x10^3uL (1.8-7.7) 1.7 x10^3uL (1.8-7.7) Lymphocytes # (Auto) 0.7 x10^3/uL (1.0-4.8) 0.6 x10^3/uL (1.0-4.8) Monocytes # (Auto) 0.4 x10^3/uL (0.0-1.1) 0.5 x10^3/uL (0.0-1.1) Eosinophils # (Auto) 0.1 x10^3/uL (0.0-0.7) 0.1 x10^3/uL (0.0-0.7) Basophils # (Auto) 0.0 x10^3/uL (0.0-0.2) 0.0 x10^3/uL (0.0-0.2) Sodium Level 138 mmol/L (136-145) 139 mmol/L (136-145) 140 mmol/L (136-145) Potassium Level 6.4 mmol/L (3.5-5.1) 4.3 mmol/L (3.5-5.1) 4.4 mmol/L (3.5-5.1) Chloride Level 99 mmol/L (98-107) 99 mmol/L (98-107) 99 mmol/L (98-107) Carbon Dioxide Level 18 mmol/L (21-32) 31 mmol/L (21-32) 31 mmol/L (21-32) Anion Gap 21 (6-14) 9 (6-14) 10 (6-14) Blood Urea Nitrogen 113 mg/dL (7-20) 42 mg/dL (7-20) 50 mg/dL (7-20) Creatinine 12.0 mg/dL (0.6-1.0) 6.3 mg/dL (0.6-1.0) 7.2 mg/dL (0.6-1.0) Estimated GFR (Cockcroft-Gault) 3.2 6.6 5.7 Glucose Level 103 mg/dL (70-99) 115 mg/dL (70-99) 102 mg/dL (70-99) Calcium Level 8.9 mg/dL (8.5-10.1) 8.6 mg/dL (8.5-10.1) 8.8 mg/dL (8.5-10.1) Total Bilirubin 0.4 mg/dL (0.2-1.0) 0.3 mg/dL (0.2-1.0) Direct Bilirubin 0.1 mg/dL (0.0-0.2) Aspartate Amino Transf (AST/SGOT) 22 U/L (15-37) 23 U/L (15-37) Alanine Aminotransferase (ALT/SGPT) 18 U/L (14-59) 16 U/L (14-59) Alkaline Phosphatase 77 U/L (46-116) 71 U/L (46-116) Troponin I Quantitative 0.017 ng/mL (0.000-0.055) BW-Sit-M-Type Natriuretic Peptide 88546 pg/mL (0-124) Total Protein 6.5 g/dL (6.4-8.2) 6.7 g/dL (6.4-8.2) Albumin 3.4 g/dL (3.4-5.0) 3.2 g/dL (3.4-5.0) Lipase 133 U/L (73-393) Glucose (Fingerstick) 166 mg/dL (70-99) BUN/Creatinine Ratio 7 (6-20) Albumin/Globulin Ratio 0.9 (1.0-1.7) Medications Current Medications Sodium Bicarbonate (Sodium Bicarb Adult 8.4% Syr) 50 meq 1X ONCE IV Last administered on 10/01/18 12:59; Start 10/01/18 at 12:30; Stop 10/01/18 at 12:31 ; Status DC Calcium Gluconate (Calcium Gluconate) 1,000 mg 1X ONCE IVP Last administered on 10/01/18 13:17; Start 10/01/18 at 12:30; Stop 10/01/18 at 12:31; Status DC Albuterol Sulfate (Ventolin Neb Soln) 10 mg 1X ONCE CONT NEB Last administered on 10/01/18 12:57; Start 10/01/18 at 12:30; Stop 10/01/18 at 12:31 ; Status DC Insulin Human Regular (HumuLIN R VIAL) 10 unit 1X ONCE IV Last administered on 10/01/18 13:15; Start 10/01/18 at 12:30; Stop 10/01/18 at 12:31; Status DC Dextrose (Dextrose 50%-Water Syringe) 25 gm 1X ONCE IV Last administered on 13:08; Start 10/01/18 at 12:30; Stop 10/01/18 at 12:31; Status DC Morphine Sulfate (Morphine Sulfate) 2 mg PRN Q2HR PRN IV PAIN Last administered on 10/01/18 20:49; Start 10/01/18 at 13:15; Stop 10/02/18 at 13:14 Amlodipine Besylate (Norvasc) 10 mg DAILY PO ; Start 10/02/18 at 09:00 Aspirin (Ecotrin) 81 mg DAILY PO ; Start 10/02/18 at 09:00 Clopidogrel Bisulfate (Plavix) 75 mg DAILY PO ; Start 10/02/18 at 09:00 Losartan Potassium (Cozaar) 50 mg BID PO Last administered on 10/01/18at 20:47; Start 10/01/18 at 21:00 Sevelamer Carbonate (Renvela) 2,400 mg TIDWMEALS PO Last administered on at 20:48; Start 10/01/18 at 17:00 Sodium Bicarbonate (Sodium Bicarbonate) 1,300 mg BID PO Last administered on 20:48; Start 10/01/18 at 21:00 Carvedilol (Coreg) 25 mg BIDWMEALS PO Last administered on 10/01/18at 20:47; Start 10/01/18 at 17:00 Atorvastatin Calcium (Lipitor) 40 mg QHS PO Last administered on 10/01/18at 20: 46; Start 10/01/18 at 21:00 Sertraline HCl (Zoloft) 25 mg DAILY PO ; Start 10/02/18 at 09:00 Heparin Sodium (Porcine) (Heparin Sodium) 5,000 unit Q8HRS SQ Last administered on 10/02/18at 06:27; Start 10/01/18 at 15:30 Sodium Chloride 1,000 ml @ 1,000 mls/hr Q1H PRN IV hypotension; Start 10/01/18 at 15:14; Stop 10/01/18 at 21:13; Status DC Diphenhydramine HCl (Benadryl) 25 mg 1X PRN PRN IV ITCHING; Start 10/01/18 at 15:15; Stop 10/02/18 at 15:14 Diphenhydramine HCl (Benadryl) 25 mg 1X PRN PRN IV ITCHING; Start 10/01/18 at 15:15; Stop 10/02/18 at 15:14 Sodium Chloride 1,000 ml @ 400 mls/hr Q2H30M PRN IV PATENCY; Start 10/01/18 at 15:14; Stop 10/02/18 at 03:13; Status DC Info (PHARMACY MONITORING -- do not chart) 1 each PRN DAILY PRN MC SEE COMMENTS ; Start 10/01/18 at 15:15 Active Scripts Active Reported Loperamide (Loperamide Hcl) 2 Mg Capsule 2 Mg PO PRN Sodium Bicarbonate 650 Mg Tablet 2 Tab PO BID Renvela (Sevelamer Carbonate) 800 Mg Tablet 3 Tab PO TID Zoloft (Sertraline Hcl) 25 Mg Tablet 1 Tab PO DAILY Crestor (Rosuvastatin Calcium) 10 Mg Tablet 10 Mg PO HS Losartan Potassium 50 Mg Tablet 50 Mg PO BID Clopidogrel (Clopidogrel Bisulfate) 75 Mg Tablet 1 Tab PO DAILY Carvedilol 25 Mg Tablet 25 Mg PO BIDWMEALS Aspir-Low (Aspirin) 81 Mg Tablet. 1 Tab PO DAILY Amlodipine Besylate 10 Mg Tablet 10 Mg PO DAILY Vitals/I & O Vital Sign - Last 24 Hours 10/01/18 10/01/18 10/01/18 10/01/18 11:48 12:00 12:30 12:58 Temp 98.6 98.6 Pulse 59 54 52 Resp 14 17 20 B/P (MAP) 116/52 (73) Pulse Ox 95 96 95 99 O2 Delivery Room Air Room Air 10/01/18 10/01/18 10/01/18 10/01/18 13:00 13:30 14:09 19:15 Temp 99.6 99.6 Pulse 52 54 57 72 Resp 28 19 11 18 B/P (MAP) 162/74 (103) Pulse Ox 99 95 100 98 O2 Delivery Room Air 10/01/18 10/01/18 10/01/18 10/01/18 19:30 19:45 20:00 20:00 Pulse 72 70 72 Resp 15 13 16 B/P (MAP) 149/60 (89) 162/74 (103) 164/71 (102) Pulse Ox 96 96 97 O2 Delivery Room Air Room Air Room Air Room Air 10/01/18 10/01/18 10/01/18 10/01/18 20:15 20:30 20:45 20:47 Pulse 70 68 68 69 Resp 17 17 22 B/P (MAP) 181/79 (113) 142/62 (88) 172/77 (108) 142/62 Pulse Ox 96 96 95 O2 Delivery Room Air Room Air Room Air 10/01/18 10/01/18 10/01/18 10/01/18 20:47 20:49 21:00 21:30 Pulse 69 68 Resp 25 22 14 B/P (MAP) 142/62 151/84 (106) Pulse Ox 96 O2 Delivery Room Air Room Air Room Air 10/01/18 10/01/18 10/01/18 10/01/18 22:00 22:07 23:00 23:59 Pulse 66 65 66 Resp 11 13 19 B/P (MAP) 144/63 (90) 159/72 (101) Pulse Ox 93 100 100 O2 Delivery Room Air Nasal Cannula Room Air Room Air O2 Flow Rate 2.0 1.0 10/02/18 10/02/18 10/02/18 10/02/18 00:00 01:00 02:00 03:00 Pulse 64 62 62 64 Resp 17 13 12 24 B/P (MAP) 165/83 (110) 149/68 (95) 117/53 (74) 143/61 (88) Pulse Ox 97 95 96 96 O2 Delivery Room Air Room Air Room Air Room Air 10/02/18 10/02/18 10/02/18 10/02/18 04:00 04:00 05:00 06:00 Pulse 62 63 65 Resp 16 14 14 B/P (MAP) 140/61 (87) 161/77 (105) 148/64 (92) Pulse Ox 95 94 94 O2 Delivery Room Air Room Air Room Air Room Air 10/02/18 10/02/18 10/02/18 07:00 07:22 08:00 Temp 99.3 99.3 99.3 99.3 Pulse 61 63 Resp 16 17 B/P (MAP) 140/78 (98) 149/66 (93) Pulse Ox 90 95 O2 Delivery Nasal Cannula Nasal Cannula Nasal Cannula O2 Flow Rate 1.0 1.0 1.0 Intake and Output 10/01/18 10/01/18 10/02/18 15:00 23:00 07:00 Intake Total 120 ml 120 ml Balance 120 ml 120 ml LO ALLISON MD Oct 02, 2018 08:54
[2018-10-02] MEDS: MORPHINE SULFATE 2 MG/ML VIAL. IV PRN (10:32)
[2018-10-02] MEDS ORDERED: DIALYSIS PATIENT. MC PRN ×2 (10:45)
--- NOTE | 2018-10-02 13:18 | PDOC ---
PROGRESS NOTES Subjective Subjective SEEN IN FOLLOW UP OF ESRD Objective Objective Vital Signs Date Time Temp Pulse Resp B/P (MAP) Pulse Ox O2 Delivery O2 Flow Rate FiO2 10/02/18 11:20 12 100 2.0 10/02/18 10:32 Room Air 10/02/18 08:54 99.6 61 162/69 (100) 99.6 Intake and Output 10/02/18 07:00 Intake Total 240 ml Balance 240 ml Intake Oral 240 ml # Voids 1 # Bowel Movements 1 Physical Exam Abdomen: Normal bowel sounds, Soft, No tenderness, No hepatosplenomegaly, No masses Heart: Regular rate, Normal S1, Normal S2, No murmurs, Gallops Extremities: No clubbing, No cyanosis, No edema, Normal pulses, No tenderness/ swelling General: Alert, Oriented X3, Cooperative, No acute distress Lungs: Clear to auscultation, Normal air movement Psych/Mental Status: Mental status NL, Mood NL Diagnosis RENAL FAILURE: ESRD Assessment Assessment Problems Medical Problems: (1) End stage renal disease Status: Acute (2) Hyperkalemia Status: Acute (3) Metabolic acidosis Status: Acute Plan Plan of Care SEE ON DIALYSIS AND TOLERATING WELL Comment Review of Relevant I have reviewed the following items shine (where applicable) has been applied. Labs Laboratory Tests Test 10/01/18 11:50 10/01/18 14:23 10/01/18 20:45 10/02/18 04:00 White Blood Count 5.6 x10^3/uL (4.0-11.0) 2.9 x10^3/uL (4.0-11.0) Red Blood Count 4.21 x10^6/uL (3.50-5.40) 4.17 x10^6/uL (3.50-5.40) Hemoglobin 11.9 g/dL (12.0-15.5) 12.1 g/dL (12.0-15.5) Hematocrit 37.8 % (36.0-47.0) 36.7 % (36.0-47.0) Mean Corpuscular Volume 90 fL (79-100) 88 fL (79-100) Mean Corpuscular Hemoglobin 28 pg (25-35) 29 pg (25-35) Mean Corpuscular Hemoglobin Concent 32 g/dL (31-37) 33 g/dL (31-37) Red Cell Distribution Width 15.7 % (11.5-14.5) 15.7 % (11.5-14.5) Platelet Count 195 x10^3/uL (140-400) 170 x10^3/uL (140-400) Neutrophils (%) (Auto) 79 % (31-73) 59 % (31-73) Lymphocytes (%) (Auto) 12 % (24-48) 21 % (24-48) Monocytes (%) (Auto) 7 % (0-9) 16 % (0-9) Eosinophils (%) (Auto) 1 % (0-3) 3 % (0-3) Basophils (%) (Auto) 0 % (0-3) 0 % (0-3) Neutrophils # (Auto) 4.4 x10^3uL (1.8-7.7) 1.7 x10^3uL (1.8-7.7) Lymphocytes # (Auto) 0.7 x10^3/uL (1.0-4.8) 0.6 x10^3/uL (1.0-4.8) Monocytes # (Auto) 0.4 x10^3/uL (0.0-1.1) 0.5 x10^3/uL (0.0-1.1) Eosinophils # (Auto) 0.1 x10^3/uL (0.0-0.7) 0.1 x10^3/uL (0.0-0.7) Basophils # (Auto) 0.0 x10^3/uL (0.0-0.2) 0.0 x10^3/uL (0.0-0.2) Sodium Level 138 mmol/L (136-145) 139 mmol/L (136-145) 140 mmol/L (136-145) Potassium Level 6.4 mmol/L (3.5-5.1) 4.3 mmol/L (3.5-5.1) 4.4 mmol/L (3.5-5.1) Chloride Level 99 mmol/L (98-107) 99 mmol/L (98-107) 99 mmol/L (98-107) Carbon Dioxide Level 18 mmol/L (21-32) 31 mmol/L (21-32) 31 mmol/L (21-32) Anion Gap 21 (6-14) 9 (6-14) 10 (6-14) Blood Urea Nitrogen 113 mg/dL (7-20) 42 mg/dL (7-20) 50 mg/dL (7-20) Creatinine 12.0 mg/dL (0.6-1.0) 6.3 mg/dL (0.6-1.0) 7.2 mg/dL (0.6-1.0) Estimated GFR (Cockcroft-Gault) 3.2 6.6 5.7 Glucose Level 103 mg/dL (70-99) 115 mg/dL (70-99) 102 mg/dL (70-99) Calcium Level 8.9 mg/dL (8.5-10.1) 8.6 mg/dL (8.5-10.1) 8.8 mg/dL (8.5-10.1) Total Bilirubin 0.4 mg/dL (0.2-1.0) 0.3 mg/dL (0.2-1.0) Direct Bilirubin 0.1 mg/dL (0.0-0.2) Aspartate Amino Transf (AST/SGOT) 22 U/L (15-37) 23 U/L (15-37) Alanine Aminotransferase (ALT/SGPT) 18 U/L (14-59) 16 U/L (14-59) Alkaline Phosphatase 77 U/L (46-116) 71 U/L (46-116) Troponin I Quantitative 0.017 ng/mL (0.000-0.055) NQ-[id number]-Type Natriuretic Peptide 94106 pg/mL (0-124) Total Protein 6.5 g/dL (6.4-8.2) 6.7 g/dL (6.4-8.2) Albumin 3.4 g/dL (3.4-5.0) 3.2 g/dL (3.4-5.0) Lipase 133 U/L (73-393) Glucose (Fingerstick) 166 mg/dL (70-99) BUN/Creatinine Ratio 7 (6-20) Albumin/Globulin Ratio 0.9 (1.0-1.7) Laboratory Tests Test 10/01/18 14:23 10/01/18 20:45 10/02/18 04:00 Glucose (Fingerstick) 166 mg/dL (70-99) Sodium Level 139 mmol/L (136-145) 140 mmol/L (136-145) Potassium Level 4.3 mmol/L (3.5-5.1) 4.4 mmol/L (3.5-5.1) Chloride Level 99 mmol/L (98-107) 99 mmol/L (98-107) Carbon Dioxide Level 31 mmol/L (21-32) 31 mmol/L (21-32) Anion Gap 9 (6-14) 10 (6-14) Blood Urea Nitrogen 42 mg/dL (7-20) 50 mg/dL (7-20) Creatinine 6.3 mg/dL (0.6-1.0) 7.2 mg/dL (0.6-1.0) Estimated GFR (Cockcroft-Gault) 6.6 5.7 Glucose Level 115 mg/dL (70-99) 102 mg/dL (70-99) Calcium Level 8.6 mg/dL (8.5-10.1) 8.8 mg/dL (8.5-10.1) White Blood Count 2.9 x10^3/uL (4.0-11.0) Red Blood Count 4.17 x10^6/uL (3.50-5.40) Hemoglobin 12.1 g/dL (12.0-15.5) Hematocrit 36.7 % (36.0-47.0) Mean Corpuscular Volume 88 fL (79-100) Mean Corpuscular Hemoglobin 29 pg (25-35) Mean Corpuscular Hemoglobin Concent 33 g/dL (31-37) Red Cell Distribution Width 15.7 % (11.5-14.5) Platelet Count 170 x10^3/uL (140-400) Neutrophils (%) (Auto) 59 % (31-73) Lymphocytes (%) (Auto) 21 % (24-48) Monocytes (%) (Auto) 16 % (0-9) Eosinophils (%) (Auto) 3 % (0-3) Basophils (%) (Auto) 0 % (0-3) Neutrophils # (Auto) 1.7 x10^3uL (1.8-7.7) Lymphocytes # (Auto) 0.6 x10^3/uL (1.0-4.8) Monocytes # (Auto) 0.5 x10^3/uL (0.0-1.1) Eosinophils # (Auto) 0.1 x10^3/uL (0.0-0.7) Basophils # (Auto) 0.0 x10^3/uL (0.0-0.2) BUN/Creatinine Ratio 7 (6-20) Total Bilirubin 0.3 mg/dL (0.2-1.0) Aspartate Amino Transf (AST/SGOT) 23 U/L (15-37) Alanine Aminotransferase (ALT/SGPT) 16 U/L (14-59) Alkaline Phosphatase 71 U/L (46-116) Total Protein 6.7 g/dL (6.4-8.2) Albumin 3.2 g/dL (3.4-5.0) Albumin/Globulin Ratio 0.9 (1.0-1.7) Medications Current Medications Sodium Bicarbonate (Sodium Bicarb Adult 8.4% Syr) 50 meq 1X ONCE IV Last administered on 10/01/18 12:59; Start 10/01/18 at 12:30; Stop 10/01/18 at 12:31 ; Status DC Calcium Gluconate (Calcium Gluconate) 1,000 mg 1X ONCE IVP Last administered on 10/01/18 13:17; Start 10/01/18 at 12:30; Stop 10/01/18 at 12:31; Status DC Albuterol Sulfate (Ventolin Neb Soln) 10 mg 1X ONCE CONT NEB Last administered on 10/01/18at 12:57; Start 10/01/18 at 12:30; Stop 10/01/18 at 12:31 ; Status DC Insulin Human Regular (HumuLIN R VIAL) 10 unit 1X ONCE IV Last administered on 10/01/18 13:15; Start 10/01/18 at 12:30; Stop 10/01/18 at 12:31; Status DC Dextrose (Dextrose 50%-Water Syringe) 25 gm 1X ONCE IV Last administered on 13:08; Start 10/01/18 at 12:30; Stop 10/01/18 at 12:31; Status DC Morphine Sulfate (Morphine Sulfate) 2 mg PRN Q2HR PRN IV PAIN Last administered on 10/02/18at 10:32; Start 10/01/18 at 13:15; Stop 10/02/18 at 13:14 ; Status DC Amlodipine Besylate (Norvasc) 10 mg DAILY PO ; Start 10/02/18 at 09:00 Aspirin (Ecotrin) 81 mg DAILY PO ; Start 10/02/18 at 09:00 Clopidogrel Bisulfate (Plavix) 75 mg DAILY PO ; Start 10/02/18 at 09:00 Losartan Potassium (Cozaar) 50 mg BID PO Last administered on 10/01/18at 20:47; Start 10/01/18 at 21:00 Sevelamer Carbonate (Renvela) 2,400 mg TIDWMEALS PO Last administered on at 20:48; Start 10/01/18 at 17:00 Sodium Bicarbonate (Sodium Bicarbonate) 1,300 mg BID PO Last administered on 20:48; Start 10/01/18 at 21:00 Carvedilol (Coreg) 25 mg BIDWMEALS PO Last administered on 10/01/18at 20:47; Start 10/01/18 at 17:00 Atorvastatin Calcium (Lipitor) 40 mg QHS PO Last administered on 10/01/18at 20: 46; Start 10/01/18 at 21:00 Sertraline HCl (Zoloft) 25 mg DAILY PO ; Start 10/02/18 at 09:00 Heparin Sodium (Porcine) (Heparin Sodium) 5,000 unit Q8HRS SQ Last administered on 10/02/18at 06:27; Start 10/01/18 at 15:30 Sodium Chloride 1,000 ml @ 1,000 mls/hr Q1H PRN IV hypotension; Start 10/01/18 at 15:14; Stop 10/01/18 at 21:13; Status DC Diphenhydramine HCl (Benadryl) 25 mg 1X PRN PRN IV ITCHING; Start 10/01/18 at 15:15; Stop 10/02/18 at 15:14 Diphenhydramine HCl (Benadryl) 25 mg 1X PRN PRN IV ITCHING; Start 10/01/18 at 15:15; Stop 10/02/18 at 15:14 Sodium Chloride 1,000 ml @ 400 mls/hr Q2H30M PRN IV PATENCY; Start 10/01/18 at 15:14; Stop 10/02/18 at 03:13; Status DC Info (PHARMACY MONITORING -- do not chart) 1 each PRN DAILY PRN MC SEE COMMENTS ; Start 10/01/18 at 15:15; Status Cancel Sodium Chloride 1,000 ml @ 1,000 mls/hr Q1H PRN IV hypotension; Start 10/02/18 at 07:00; Stop 10/02/18 at 12:59; Status DC Acetaminophen (Tylenol) 500 mg 1X PRN PRN PO MILD PAIN / TEMP; Start 10/02/18 at 07:00; Stop 10/03/18 at 06:59 Sodium Chloride 1,000 ml @ 400 mls/hr Q2H30M PRN IV PATENCY; Start 10/02/18 at 07:00; Stop 10/02/18 at 18:59 Info (PHARMACY MONITORING -- do not chart) 1 each PRN DAILY PRN MC SEE COMMENTS ; Start 10/02/18 at 10:45; Status UNV Info (PHARMACY MONITORING -- do not chart) 1 each PRN DAILY PRN MC SEE COMMENTS ; Start 10/02/18 at 10:45 Active Scripts Active Reported Loperamide (Loperamide Hcl) 2 Mg Capsule 2 Mg PO PRN Sodium Bicarbonate 650 Mg Tablet 2 Tab PO BID Renvela (Sevelamer Carbonate) 800 Mg Tablet 3 Tab PO TID Zoloft (Sertraline Hcl) 25 Mg Tablet 1 Tab PO DAILY Crestor (Rosuvastatin Calcium) 10 Mg Tablet 10 Mg PO HS Losartan Potassium 50 Mg Tablet 50 Mg PO BID Clopidogrel (Clopidogrel Bisulfate) 75 Mg Tablet 1 Tab PO DAILY Carvedilol 25 Mg Tablet 25 Mg PO BIDWMEALS Aspir-Low (Aspirin) 81 Mg Tablet. 1 Tab PO DAILY Amlodipine Besylate 10 Mg Tablet 10 Mg PO DAILY Vitals/I & O Vital Sign - Last 24 Hours 10/01/18 10/01/18 10/01/18 10/01/18 13:30 14:09 19:15 19:30 Temp 99.6 99.6 Pulse 54 57 72 72 Resp 19 11 18 15 B/P (MAP) 162/74 (103) 149/60 (89) Pulse Ox 95 100 98 96 O2 Delivery Room Air Room Air 10/01/18 10/01/18 10/01/18 10/01/18 19:45 20:00 20:00 20:15 Pulse 70 72 70 Resp 13 16 17 B/P (MAP) 162/74 (103) 164/71 (102) 181/79 (113) Pulse Ox 96 97 96 O2 Delivery Room Air Room Air Room Air Room Air 10/01/18 10/01/18 10/01/18 10/01/18 20:30 20:45 20:47 20:47 Pulse 68 68 69 69 Resp 22 B/P (MAP) 142/62 (88) 172/77 (108) 142/62 142/62 Pulse Ox 96 95 O2 Delivery Room Air Room Air 10/01/18 10/01/18 10/01/18 10/01/18 20:49 21:00 21:30 22:00 Pulse 68 66 Resp 22 11 B/P (MAP) 151/84 (106) 144/63 (90) Pulse Ox 96 93 O2 Delivery Room Air Room Air Room Air Room Air 10/01/18 10/01/18 10/01/18 10/02/18 22:07 23:00 23:59 00:00 Pulse 65 66 64 Resp 19 17 B/P (MAP) 159/72 (101) 165/83 (110) Pulse Ox 100 100 97 O2 Delivery Nasal Cannula Room Air Room Air Room Air O2 Flow Rate 2.0 1.0 10/02/18 10/02/18 10/02/18 10/02/18 01:00 02:00 03:00 04:00 Pulse 62 62 64 Resp 13 12 24 B/P (MAP) 149/68 (95) 117/53 (74) 143/61 (88) Pulse Ox 95 96 96 O2 Delivery Room Air Room Air Room Air Room Air 10/02/18 10/02/18 10/02/18 10/02/18 04:00 05:00 06:00 07:00 Temp 99.3 99.3 Pulse 62 63 65 61 Resp 16 14 14 16 B/P (MAP) 140/61 (87) 161/77 (105) 148/64 (92) 140/78 (98) Pulse Ox 95 94 94 90 O2 Delivery Room Air Room Air Room Air Nasal Cannula O2 Flow Rate 1.0 10/02/18 10/02/18 10/02/18 10/02/18 07:22 08:00 08:54 10:32 Temp 99.3 99.6 99.3 99.6 Pulse 63 61 Resp 17 12 14 B/P (MAP) 149/66 (93) 162/69 (100) Pulse Ox 95 95 94 O2 Delivery Nasal Cannula Nasal Cannula Nasal Cannula Room Air O2 Flow Rate 1.0 1.0 1.0 10/02/18 11:20 Resp 12 Pulse Ox 100 O2 Flow Rate 2.0 Intake and Output 10/01/18 10/01/18 10/02/18 15:00 23:00 07:00 Intake Total 120 ml 120 ml Balance 120 ml 120 ml INA MCLAUGHLIN MD Oct 02, 2018 13:17
[2018-10-02] MEDS: CLOPIDOGREL BISULFATE 75 MG TABLET PO SCH (14:05)
[2018-10-02] MEDS: amLODIPine BESYLATE 10 MG TABLET PO SCH (14:06)
[2018-10-02] MEDS: SODIUM BICARBONATE 650 MG TABLET. PO SCH ×2 (14:06→21:00)
[2018-10-02] MEDS: SERTRALINE 25 MG TABLET. PO SCH (14:06)
[2018-10-02] MEDS: LOSARTAN POTASSIUM 50 MG TABLET. PO SCH ×2 (14:07→21:00)
[2018-10-02] MEDS: ASPIRIN ENTERIC COATED 81 MG TABLET.DR. PO SCH (14:07)
--- NOTE | 2018-10-02 15:06 | EKG ---
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
[2018-10-02] MEDS: ATORVASTATIN CALCIUM 40 MG TABLET. PO SCH (21:00)
[2018-10-03 03:25] VITALS: BP 165/58
[2018-10-03] MEDS: HEPARIN for SUB-Q USE 5,000 UNIT/ML VIAL. SQ SCH ×3 (06:18→21:20)
[2018-10-03 07:00] VITALS: BP 185/63
[2018-10-03] MEDS: amLODIPine BESYLATE 10 MG TABLET PO SCH (08:36)
[2018-10-03] MEDS: SERTRALINE 25 MG TABLET. PO SCH (08:36)
[2018-10-03] MEDS: ASPIRIN ENTERIC COATED 81 MG TABLET.DR. PO SCH (08:36)
[2018-10-03] MEDS: LOSARTAN POTASSIUM 50 MG TABLET. PO SCH ×2 (08:36→21:15)
[2018-10-03] MEDS: CLOPIDOGREL BISULFATE 75 MG TABLET PO SCH (08:36)
[2018-10-03] MEDS: SEVELAMER CARBONATE 800 MG TABLET. PO SCH ×3 (08:37→17:40)
[2018-10-03] MEDS: SODIUM BICARBONATE 650 MG TABLET. PO SCH ×2 (08:37→21:15)
[2018-10-03] MEDS: CARVEDILOL 12.5 MG TABLET. PO SCH ×2 (08:37→17:41)
--- NOTE | 2018-10-03 09:19 | PDOC ---
PROGRESS NOTES Chief Complaint Chief Complaint A/P: Leukopenia - new, no obvious source of infection. Will monitor ESRD ON DIALYSIS - Bradycardia - improved after dialysis session Hypotension - improved overnight, held antihypertensives H/o HTN - will monitor, reconcile SNF meds - losartan, amlodipine, coreg CAD - on coreg, ASA, statin Depression - cont zoloft Acute hypoxic respiratory failure - likely 2/2 fluid overload Diastolic CHF exacerbation - cont BB, losartan, ASA, statin. UF per dialysis sessions, FEN - Renal diet PPX - heparin FULL CODE TELEMETRY History of Present Illness History of Present Illness 68-year-old female presenting the emergency department 10/01/18 with generalized weakness. She had missed dialysis on Thursday and . She lives in a fdc who called EMS. On arrival EMS of the patient was hypotensive around 90 systolic without a known baseline. They reported that her blood pressure improved with a small amount of Trendelenburg. She was alert and oriented when they arrived. No chest pain shortness of breath abdominal pain nausea vomiting. All other review of systems is negative. Found with K of 6.4 and EKG showing sinus bradycardia with a prolonged QT. Otherwise ST segments show mild repolarization. Given calcium albuterol bicarbonate and glucose with insulin with urgent dialysis session yesterday. Used dehairer phone, [employer] [id number] this morning to translate Polish. She is feeling weak and sore all over as well as intense pruritus. Labs improved. WBC is 2.9, ANC 1.7. 10/03 [employer], WEAKER Vitals Vitals Vital Signs Date Time Temp Pulse Resp B/P (MAP) Pulse Ox O2 Delivery O2 Flow Rate FiO2 10/03/18 08:37 58 165/58 10/03/18 07:00 98.9 18 96 Room Air 98.9 10/02/18 20:00 2.0 Physical Exam General: Alert, Oriented X3, Cooperative, No acute distress Heart: Regular rate, Normal S1, Normal S2, No murmurs, Gallops Lungs: Clear, Wheezing Abdomen: Normal bowel sounds, Soft, No tenderness, No hepatosplenomegaly, No masses Extremities: No clubbing, No cyanosis, No edema, Normal pulses, No tenderness/ swelling Skin: No breakdown Assessment and Plan Assessmemt and Plan Problems Medical Problems: (1) End stage renal disease Status: Acute (2) Hyperkalemia Status: Acute (3) Metabolic acidosis Status: Acute Comment Review of Relevant I have reviewed the following items shine (where applicable) has been applied. Labs Laboratory Tests Test 10/01/18 11:50 10/01/18 14:23 10/01/18 20:45 10/01/18 21:00 White Blood Count 5.6 x10^3/uL (4.0-11.0) Red Blood Count 4.21 x10^6/uL (3.50-5.40) Hemoglobin 11.9 g/dL (12.0-15.5) Hematocrit 37.8 % (36.0-47.0) Mean Corpuscular Volume 90 fL (79-100) Mean Corpuscular Hemoglobin 28 pg (25-35) Mean Corpuscular Hemoglobin Concent 32 g/dL (31-37) Red Cell Distribution Width 15.7 % (11.5-14.5) Platelet Count 195 x10^3/uL (140-400) Neutrophils (%) (Auto) 79 % (31-73) Lymphocytes (%) (Auto) 12 % (24-48) Monocytes (%) (Auto) 7 % (0-9) Eosinophils (%) (Auto) 1 % (0-3) Basophils (%) (Auto) 0 % (0-3) Neutrophils # (Auto) 4.4 x10^3uL (1.8-7.7) Lymphocytes # (Auto) 0.7 x10^3/uL (1.0-4.8) Monocytes # (Auto) 0.4 x10^3/uL (0.0-1.1) Eosinophils # (Auto) 0.1 x10^3/uL (0.0-0.7) Basophils # (Auto) 0.0 x10^3/uL (0.0-0.2) Sodium Level 138 mmol/L (136-145) 139 mmol/L (136-145) Potassium Level 6.4 mmol/L (3.5-5.1) 4.3 mmol/L (3.5-5.1) Chloride Level 99 mmol/L (98-107) 99 mmol/L (98-107) Carbon Dioxide Level 18 mmol/L (21-32) 31 mmol/L (21-32) Anion Gap 21 (6-14) 9 (6-14) Blood Urea Nitrogen 113 mg/dL (7-20) 42 mg/dL (7-20) Creatinine 12.0 mg/dL (0.6-1.0) 6.3 mg/dL (0.6-1.0) Estimated GFR (Cockcroft-Gault) 3.2 6.6 Glucose Level 103 mg/dL (70-99) 115 mg/dL (70-99) Calcium Level 8.9 mg/dL (8.5-10.1) 8.6 mg/dL (8.5-10.1) Total Bilirubin 0.4 mg/dL (0.2-1.0) Direct Bilirubin 0.1 mg/dL (0.0-0.2) Aspartate Amino Transf (AST/SGOT) 22 U/L (15-37) Alanine Aminotransferase (ALT/SGPT) 18 U/L (14-59) Alkaline Phosphatase 77 U/L (46-116) Troponin I Quantitative 0.017 ng/mL (0.000-0.055) YM-Mfo-[id number]-Type Natriuretic Peptide 58364 pg/mL (0-124) Total Protein 6.5 g/dL (6.4-8.2) Albumin 3.4 g/dL (3.4-5.0) Lipase 133 U/L (73-393) Glucose (Fingerstick) 166 mg/dL (70-99) Nasal Screen MRSA (PCR) Negative (Negative) Test 10/02/18 04:00 White Blood Count 2.9 x10^3/uL (4.0-11.0) Red Blood Count 4.17 x10^6/uL (3.50-5.40) Hemoglobin 12.1 g/dL (12.0-15.5) Hematocrit 36.7 % (36.0-47.0) Mean Corpuscular Volume 88 fL (79-100) Mean Corpuscular Hemoglobin 29 pg (25-35) Mean Corpuscular Hemoglobin Concent 33 g/dL (31-37) Red Cell Distribution Width 15.7 % (11.5-14.5) Platelet Count 170 x10^3/uL (140-400) Neutrophils (%) (Auto) 59 % (31-73) Lymphocytes (%) (Auto) 21 % (24-48) Monocytes (%) (Auto) 16 % (0-9) Eosinophils (%) (Auto) 3 % (0-3) Basophils (%) (Auto) 0 % (0-3) Neutrophils # (Auto) 1.7 x10^3uL (1.8-7.7) Lymphocytes # (Auto) 0.6 x10^3/uL (1.0-4.8) Monocytes # (Auto) 0.5 x10^3/uL (0.0-1.1) Eosinophils # (Auto) 0.1 x10^3/uL (0.0-0.7) Basophils # (Auto) 0.0 x10^3/uL (0.0-0.2) Sodium Level 140 mmol/L (136-145) Potassium Level 4.4 mmol/L (3.5-5.1) Chloride Level 99 mmol/L (98-107) Carbon Dioxide Level 31 mmol/L (21-32) Anion Gap 10 (6-14) Blood Urea Nitrogen 50 mg/dL (7-20) Creatinine 7.2 mg/dL (0.6-1.0) Estimated GFR (Cockcroft-Gault) 5.7 BUN/Creatinine Ratio 7 (6-20) Glucose Level 102 mg/dL (70-99) Calcium Level 8.8 mg/dL (8.5-10.1) Total Bilirubin 0.3 mg/dL (0.2-1.0) Aspartate Amino Transf (AST/SGOT) 23 U/L (15-37) Alanine Aminotransferase (ALT/SGPT) 16 U/L (14-59) Alkaline Phosphatase 71 U/L (46-116) Total Protein 6.7 g/dL (6.4-8.2) Albumin 3.2 g/dL (3.4-5.0) Albumin/Globulin Ratio 0.9 (1.0-1.7) Medications Current Medications Sodium Bicarbonate (Sodium Bicarb Adult 8.4% Syr) 50 meq 1X ONCE IV Last administered on 10/01/18at 12:59; Start 10/01/18 at 12:30; Stop 10/01/18 at 12:31 ; Status DC Calcium Gluconate (Calcium Gluconate) 1,000 mg 1X ONCE IVP Last administered on 10/01/18at 13:17; Start 10/01/18 at 12:30; Stop 10/01/18 at 12:31; Status DC Albuterol Sulfate (Ventolin Neb Soln) 10 mg 1X ONCE CONT NEB Last administered on 10/01/18 12:57; Start 10/01/18 at 12:30; Stop 10/01/18 at 12:31 ; Status DC Insulin Human Regular (HumuLIN R VIAL) 10 unit 1X ONCE IV Last administered on 10/01/18 13:15; Start 10/01/18 at 12:30; Stop 10/01/18 at 12:31; Status DC Dextrose (Dextrose 50%-Water Syringe) 25 gm 1X ONCE IV Last administered on 13:08; Start 10/01/18 at 12:30; Stop 10/01/18 at 12:31; Status DC Morphine Sulfate (Morphine Sulfate) 2 mg PRN Q2HR PRN IV PAIN Last administered on 10/02/18 10:32; Start 10/01/18 at 13:15; Stop 10/02/18 at 13:14 ; Status DC Amlodipine Besylate (Norvasc) 10 mg DAILY PO Last administered on 10/03/18 08: 36; Start 10/02/18 at 09:00 Aspirin (Ecotrin) 81 mg DAILY PO Last administered on 10/03/18 08:36; Start at 09:00 Clopidogrel Bisulfate (Plavix) 75 mg DAILY PO Last administered on 10/03/18 08 :36; Start 10/02/18 at 09:00 Losartan Potassium (Cozaar) 50 mg BID PO Last administered on 10/03/18 08:36; Start 10/01/18 at 21:00 Sevelamer Carbonate (Renvela) 2,400 mg TIDWMEALS PO Last administered on 08:37; Start 10/01/18 at 17:00 Sodium Bicarbonate (Sodium Bicarbonate) 1,300 mg BID PO Last administered on 08:37; Start 10/01/18 at 21:00 Carvedilol (Coreg) 25 mg BIDWMEALS PO Last administered on 10/03/18 08:37; Start 10/01/18 at 17:00 Atorvastatin Calcium (Lipitor) 40 mg QHS PO Last administered on 10/02/18 21: 00; Start 10/01/18 at 21:00 Sertraline HCl (Zoloft) 25 mg DAILY PO Last administered on 10/03/18at 08:36; Start 10/02/18 at 09:00 Heparin Sodium (Porcine) (Heparin Sodium) 5,000 unit Q8HRS SQ Last administered on 10/03/18at 06:18; Start 10/01/18 at 15:30 Sodium Chloride 1,000 ml @ 1,000 mls/hr Q1H PRN IV hypotension; Start 10/01/18 at 15:14; Stop 10/01/18 at 21:13; Status DC Diphenhydramine HCl (Benadryl) 25 mg 1X PRN PRN IV ITCHING; Start 10/01/18 at 15:15; Stop 10/02/18 at 15:14; Status DC Diphenhydramine HCl (Benadryl) 25 mg 1X PRN PRN IV ITCHING; Start 10/01/18 at 15:15; Stop 10/02/18 at 15:14; Status DC Sodium Chloride 1,000 ml @ 400 mls/hr Q2H30M PRN IV PATENCY; Start 10/01/18 at 15:14; Stop 10/02/18 at 03:13; Status DC Info (PHARMACY MONITORING -- do not chart) 1 each PRN DAILY PRN MC SEE COMMENTS ; Start 10/01/18 at 15:15; Status Cancel Sodium Chloride 1,000 ml @ 1,000 mls/hr Q1H PRN IV hypotension; Start 10/02/18 at 07:00; Stop 10/02/18 at 12:59; Status DC Acetaminophen (Tylenol) 500 mg 1X PRN PRN PO MILD PAIN / TEMP; Start 10/02/18 at 07:00; Stop 10/03/18 at 06:59; Status DC Sodium Chloride 1,000 ml @ 400 mls/hr Q2H30M PRN IV PATENCY; Start 10/02/18 at 07:00; Stop 10/02/18 at 18:59; Status DC Info (PHARMACY MONITORING -- do not chart) 1 each PRN DAILY PRN MC SEE COMMENTS ; Start 10/02/18 at 10:45; Status UNV Info (PHARMACY MONITORING -- do not chart) 1 each PRN DAILY PRN MC SEE COMMENTS ; Start 10/02/18 at 10:45 Active Scripts Active Reported Loperamide (Loperamide Hcl) 2 Mg Capsule 2 Mg PO PRN Sodium Bicarbonate 650 Mg Tablet 2 Tab PO BID Renvela (Sevelamer Carbonate) 800 Mg Tablet 3 Tab PO TID Zoloft (Sertraline Hcl) 25 Mg Tablet 1 Tab PO DAILY Crestor (Rosuvastatin Calcium) 10 Mg Tablet 10 Mg PO HS Losartan Potassium 50 Mg Tablet 50 Mg PO BID Clopidogrel (Clopidogrel Bisulfate) 75 Mg Tablet 1 Tab PO DAILY Carvedilol 25 Mg Tablet 25 Mg PO BIDWMEALS Aspir-Low (Aspirin) 81 Mg Tablet.dr 1 Tab PO DAILY Amlodipine Besylate 10 Mg Tablet 10 Mg PO DAILY Vitals/I & O Vital Sign - Last 24 Hours 10/02/18 10/02/18 10/02/18 10/02/18 10:32 11:20 12:34 14:06 Temp 98.8 98.8 Pulse 60 60 Resp 14 12 18 B/P (MAP) 153/54 (87) 153/54 Pulse Ox 94 100 96 O2 Delivery Room Air Room Air O2 Flow Rate 2.0 10/02/18 10/02/18 10/02/18 10/02/18 14:07 15:00 16:37 17:41 Temp 98.5 98.5 Pulse 60 56 56 Resp 18 B/P (MAP) 153/54 131/55 (80) 131/55 Pulse Ox 95 O2 Delivery Room Air Nasal Cannula O2 Flow Rate 2.0 10/02/18 10/02/18 10/02/18 10/02/18 19:25 20:00 21:00 23:25 Temp 99.0 98.6 99.0 98.6 Pulse 59 59 59 Resp 16 16 B/P (MAP) 102/66 (78) 102/66 164/65 (98) Pulse Ox 94 97 O2 Delivery Room Air Nasal Cannula Room Air O2 Flow Rate 2.0 10/03/18 10/03/18 10/03/18 10/03/18 03:25 07:00 08:36 08:36 Temp 99.3 98.9 99.3 98.9 Pulse 58 57 58 58 Resp 16 18 B/P (MAP) 165/58 (93) 185/63 (103) 165/58 165/58 Pulse Ox 98 96 O2 Delivery Room Air Room Air 10/03/18 08:37 Pulse 58 B/P (MAP) 165/58 Intake and Output 10/02/18 10/02/18 10/03/18 14:59 22:59 06:59 Intake Total 60 ml 120 ml 250 ml Balance 60 ml 120 ml 250 ml JAS LAGUNA MD Oct 03, 2018 09:18
[2018-10-03 11:00] VITALS: BP 155/57
[2018-10-03 15:00] VITALS: BP 140/53
[2018-10-03 19:20] VITALS: BP 149/52
[2018-10-03] MEDS: ATORVASTATIN CALCIUM 40 MG TABLET. PO SCH (21:14)
[2018-10-03 23:15] VITALS: BP 163/64
[2018-10-04 03:43] VITALS: BP 168/64
[2018-10-04] MEDS: HEPARIN for SUB-Q USE 5,000 UNIT/ML VIAL. SQ SCH ×3 (06:17→20:34)
[2018-10-04 07:13] VITALS: BP 158/62
[2018-10-04] MEDS: CARVEDILOL 12.5 MG TABLET. PO SCH ×2 (08:00→17:33)
[2018-10-04 09:33] LABS: ALBUMIN 3.2 g/dL (3.4-5.0); CALCIUM 8.4 mg/dL (8.5-10.1); CREATININE 7.6 mg/dL (0.6-1.0); GFR 5.3; PHOSPHORUS 4.8 mg/dL (2.6-4.7); POTASSIUM 4.6 mmol/L (3.5-5.1)
[2018-10-04] MEDS: SEVELAMER CARBONATE 800 MG TABLET. PO SCH ×3 (09:35→17:32)
[2018-10-04] MEDS: SODIUM BICARBONATE 650 MG TABLET. PO SCH ×2 (09:35→20:28)
[2018-10-04] MEDS: CLOPIDOGREL BISULFATE 75 MG TABLET PO SCH (09:36)
[2018-10-04] MEDS: ASPIRIN ENTERIC COATED 81 MG TABLET.DR. PO SCH (09:36)
[2018-10-04] MEDS: SERTRALINE 25 MG TABLET. PO SCH (09:36)
[2018-10-04] MEDS: LOSARTAN POTASSIUM 50 MG TABLET. PO SCH ×2 (09:37→20:29)
[2018-10-04] MEDS: amLODIPine BESYLATE 10 MG TABLET PO SCH (09:39)
[2018-10-04 10:38] VITALS: BP 135/46
--- NOTE | 2018-10-04 11:48 | PDOC ---
Renal-Progress Notes Subjective Notes Notes BETTER FEELING History of Present Illness Hx of present illness STABLE Vitals Vitals Vital Signs Date Time Temp Pulse Resp B/P (MAP) Pulse Ox O2 Delivery O2 Flow Rate FiO2 10/04/18 10:38 98.8 57 17 135/46 (75) 98 Room Air 98.8 10/03/18 20:00 2.0 Weight Weight [ ] I.O. Intake and Output Intake and Output 10/04/18 07:00 Intake Total 100 ml Balance 100 ml Intake Oral 100 ml Labs Labs Laboratory Tests Test 10/04/18 07:57 Sodium Level 139 mmol/L (136-145) Potassium Level 4.6 mmol/L (3.5-5.1) Chloride Level 100 mmol/L (98-107) Carbon Dioxide Level 28 mmol/L (21-32) Anion Gap 11 (6-14) Blood Urea Nitrogen 46 mg/dL (7-20) Creatinine 7.6 mg/dL (0.6-1.0) Estimated GFR (Cockcroft-Gault) 5.3 Glucose Level 89 mg/dL (70-99) Calcium Level 8.4 mg/dL (8.5-10.1) Phosphorus Level 4.8 mg/dL (2.6-4.7) Albumin 3.2 g/dL (3.4-5.0) Review of Systems Constitutional: yes: weakness, alert, oriented Ears/Nose/Throat: Yes: no symptom reported Eyes: Yes: no symptom reported Pulmonary: Yes no symptom reported Cardiovascular: Yes no symptom reported Gastrointestional: Yes: no symptom reported Genitourinary: Yes: no symptom reported Musculoskeletal: Yes: no symptom reported Skin: Yes no symptom reported Psychiatric/Neurological: Yes: no symptom reported Endocrine: Yes: no symptom reported Physical Exam General Appearance: no apparent distress Skin: warm Respiratory: bilateral CTA Heart: S1S2 Abdomen: soft, bowel sounds present Genitourinary: bladder flat Extremities: pulses present Neurology: alert Assessment Assessment IMPRESSION ESRD NON COMPLIANCE HYPERKALEMIA WEAKNESS DUE TO ABOVE PLAN ENC COMPLIANCE HD TOMORROW AND TTS WILL FOLLOW JOSAFAT AMEZCUA MD Oct 04, 2018 11:48
--- NOTE | 2018-10-04 13:59 | PDOC ---
PROGRESS NOTES Chief Complaint Chief Complaint Leukopenia - new, no obvious source of infection. Will monitor ESRD ON DIALYSIS - Bradycardia - improved after dialysis session Hypotension - improved overnight, held antihypertensives H/o HTN - will monitor, reconcile SNF meds - losartan, amlodipine, coreg CAD - on coreg, ASA, statin Depression - cont zoloft Acute hypoxic respiratory failure - likely 2/2 fluid overload Diastolic CHF exacerbation - cont BB, losartan, ASA, statin. UF per dialysis sessions, History of Present Illness History of Present Illness 68-year-old female presenting the emergency department 10/01/18 with generalized weakness still tired HD tomorrow, then DC renal following . She had missed dialysis on Thursday and . Vitals Vitals Vital Signs Date Time Temp Pulse Resp B/P (MAP) Pulse Ox O2 Delivery O2 Flow Rate FiO2 10/04/18 10:38 98.8 57 17 135/46 (75) 98 Room Air 98.8 10/03/18 20:00 2.0 Physical Exam General: Alert, Oriented X3, Cooperative, No acute distress Heart: Regular rate, Normal S1, Normal S2, No murmurs, Gallops Lungs: Clear, Wheezing Abdomen: Normal bowel sounds, Soft, No tenderness, No hepatosplenomegaly, No masses Extremities: No clubbing, No cyanosis, No edema, Normal pulses, No tenderness/swelling Skin: No breakdown Labs LABS Laboratory Tests Test 10/04/18 07:57 Sodium Level 139 mmol/L (136-145) Potassium Level 4.6 mmol/L (3.5-5.1) Chloride Level 100 mmol/L (98-107) Carbon Dioxide Level 28 mmol/L (21-32) Anion Gap 11 (6-14) Blood Urea Nitrogen 46 mg/dL (7-20) Creatinine 7.6 mg/dL (0.6-1.0) Estimated GFR (Cockcroft-Gault) 5.3 Glucose Level 89 mg/dL (70-99) Calcium Level 8.4 mg/dL (8.5-10.1) Phosphorus Level 4.8 mg/dL (2.6-4.7) Albumin 3.2 g/dL (3.4-5.0) Assessment and Plan Assessmemt and Plan Problems Medical Problems: (1) End stage renal disease Status: Acute (2) Hyperkalemia Status: Acute (3) Metabolic acidosis Status: Acute Comment Review of Relevant I have reviewed the following items shine (where applicable) has been applied. Labs Laboratory Tests Test 10/04/18 07:57 Sodium Level 139 mmol/L (136-145) Potassium Level 4.6 mmol/L (3.5-5.1) Chloride Level 100 mmol/L (98-107) Carbon Dioxide Level 28 mmol/L (21-32) Anion Gap 11 (6-14) Blood Urea Nitrogen 46 mg/dL (7-20) Creatinine 7.6 mg/dL (0.6-1.0) Estimated GFR (Cockcroft-Gault) 5.3 Glucose Level 89 mg/dL (70-99) Calcium Level 8.4 mg/dL (8.5-10.1) Phosphorus Level 4.8 mg/dL (2.6-4.7) Albumin 3.2 g/dL (3.4-5.0) Laboratory Tests Test 10/04/18 07:57 Sodium Level 139 mmol/L (136-145) Potassium Level 4.6 mmol/L (3.5-5.1) Chloride Level 100 mmol/L (98-107) Carbon Dioxide Level 28 mmol/L (21-32) Anion Gap 11 (6-14) Blood Urea Nitrogen 46 mg/dL (7-20) Creatinine 7.6 mg/dL (0.6-1.0) Estimated GFR (Cockcroft-Gault) 5.3 Glucose Level 89 mg/dL (70-99) Calcium Level 8.4 mg/dL (8.5-10.1) Phosphorus Level 4.8 mg/dL (2.6-4.7) Albumin 3.2 g/dL (3.4-5.0) Medications Current Medications Sodium Bicarbonate (Sodium Bicarb Adult 8.4% Syr) 50 meq 1X ONCE IV Last administered on 10/01/18at 12:59; Start 10/01/18 at 12:30; Stop 10/01/18 at 12:31; Status DC Calcium Gluconate (Calcium Gluconate) 1,000 mg 1X ONCE IVP Last administered on 10/01/18at 13:17; Start 10/01/18 at 12:30; Stop 10/01/18 at 12:31; Status DC Albuterol Sulfate (Ventolin Neb Soln) 10 mg 1X ONCE CONT NEB Last administered on 10/01/18 12:57; Start 10/01/18 at 12:30; Stop 10/01/18 at 12:31; Status DC Insulin Human Regular (HumuLIN R VIAL) 10 unit 1X ONCE IV Last administered on 10/01/18 13:15; Start 10/01/18 at 12:30; Stop 10/01/18 at 12:31; Status DC Dextrose (Dextrose 50%-Water Syringe) 25 gm 1X ONCE IV Last administered on 10/01/18 13:08; Start 10/01/18 at 12:30; Stop 10/01/18 at 12:31; Status DC Morphine Sulfate (Morphine Sulfate) 2 mg PRN Q2HR PRN IV PAIN Last administered on 10/02/18 10:32; Start 10/01/18 at 13:15; Stop 10/02/18 at 13:14; Status DC Amlodipine Besylate (Norvasc) 10 mg DAILY PO Last administered on 10/04/18 09:39; Start 10/02/18 at 09:00 Aspirin (Ecotrin) 81 mg DAILY PO Last administered on 10/04/18 09:36; Start 10/02/18 at 09:00 Clopidogrel Bisulfate (Plavix) 75 mg DAILY PO Last administered on 10/04/18 09:36; Start 10/02/18 at 09:00 Losartan Potassium (Cozaar) 50 mg BID PO Last administered on 10/04/18 09:37; Start 10/01/18 at 21:00 Sevelamer Carbonate (Renvela) 2,400 mg TIDWMEALS PO Last administered on 10/04 12:54; Start 10/01/18 at 17:00 Sodium Bicarbonate (Sodium Bicarbonate) 1,300 mg BID PO Last administered on 10/04/18 09:35; Start 10/01/18 at 21:00 Carvedilol (Coreg) 25 mg BIDWMEALS PO Last administered on 10/03/18 17:41; Start 10/01/18 at 17:00 Atorvastatin Calcium (Lipitor) 40 mg QHS PO Last administered on 10/03/18 21:14; Start 10/01/18 at 21:00 Sertraline HCl (Zoloft) 25 mg DAILY PO Last administered on 4/22/19at 09:36; Start 10/02/18 at 09:00 Heparin Sodium (Porcine) (Heparin Sodium) 5,000 unit Q8HRS SQ Last administered on 10/04/18at 06:17; Start 10/01/18 at 15:30 Sodium Chloride 1,000 ml @ 1,000 mls/hr Q1H PRN IV hypotension; Start 10/01/18 at 15:14; Stop 10/01/18 at 21:13; Status DC Diphenhydramine HCl (Benadryl) 25 mg 1X PRN PRN IV ITCHING; Start 10/01/18 at 15:15; Stop 10/02/18 at 15:14; Status DC Diphenhydramine HCl (Benadryl) 25 mg 1X PRN PRN IV ITCHING; Start 10/01/18 at 15:15; Stop 10/02/18 at 15:14; Status DC Sodium Chloride 1,000 ml @ 400 mls/hr Q2H30M PRN IV PATENCY; Start 10/01/18 at 15:14; Stop 10/02/18 at 03:13; Status DC Info (PHARMACY MONITORING -- do not chart) 1 each PRN DAILY PRN MC SEE COMMENTS; Start 10/01/18 at 15:15; Status Cancel Sodium Chloride 1,000 ml @ 1,000 mls/hr Q1H PRN IV hypotension; Start 10/02/18 at 07:00; Stop 10/02/18 at 12:59; Status DC Acetaminophen (Tylenol) 500 mg 1X PRN PRN PO MILD PAIN / TEMP; Start 10/02/18 at 07:00; Stop 10/03/18 at 06:59; Status DC Sodium Chloride 1,000 ml @ 400 mls/hr Q2H30M PRN IV PATENCY; Start 10/02/18 at 07:00; Stop 10/02/18 at 18:59; Status DC Info (PHARMACY MONITORING -- do not chart) 1 each PRN DAILY PRN MC SEE COMMENTS; Start 10/02/18 at 10:45; Status UNV Info (PHARMACY MONITORING -- do not chart) 1 each PRN DAILY PRN MC SEE COMMENTS; Start 10/02/18 at 10:45 Active Scripts Active Reported Loperamide (Loperamide Hcl) 2 Mg Capsule 2 Mg PO PRN Sodium Bicarbonate 650 Mg Tablet 2 Tab PO BID Renvela (Sevelamer Carbonate) 800 Mg Tablet 3 Tab PO TID Zoloft (Sertraline Hcl) 25 Mg Tablet 1 Tab PO DAILY Crestor (Rosuvastatin Calcium) 10 Mg Tablet 10 Mg PO HS Losartan Potassium 50 Mg Tablet 50 Mg PO BID Clopidogrel (Clopidogrel Bisulfate) 75 Mg Tablet 1 Tab PO DAILY Carvedilol 25 Mg Tablet 25 Mg PO BIDWMEALS Aspir-Low (Aspirin) 81 Mg Tablet.dr 1 Tab PO DAILY Amlodipine Besylate 10 Mg Tablet 10 Mg PO DAILY Vitals/I & O Vital Sign - Last 24 Hours 10/03/18 10/03/18 10/03/18 10/03/18 15:00 17:41 19:20 20:00 Temp 98.5 97.6 98.5 97.6 Pulse 55 55 58 Resp 18 18 B/P (MAP) 140/53 (82) 140/53 149/52 (84) Pulse Ox 94 96 O2 Delivery Room Air Room Air Room Air O2 Flow Rate 2.0 10/03/18 10/03/18 10/04/18 10/04/18 21:15 23:15 03:43 07:13 Temp 97.9 97.9 98.2 97.9 97.9 98.2 Pulse 58 55 58 56 Resp 18 18 16 B/P (MAP) 149/52 163/64 (97) 168/64 (98) 158/62 (94) Pulse Ox 96 96 97 O2 Delivery Room Air Room Air Room Air 10/04/18 10/04/18 10/04/18 10/04/18 08:00 08:00 09:37 09:39 Pulse 56 56 56 B/P (MAP) 158/62 158/62 158/62 O2 Delivery Room Air 10/04/18 10:38 Temp 98.8 98.8 Pulse 57 Resp 17 B/P (MAP) 135/46 (75) Pulse Ox 98 O2 Delivery Room Air Intake and Output 10/03/18 10/03/18 10/04/18 15:00 23:00 07:00 Intake Total 100 ml Balance 100 ml JANETH CONDE MD Oct 04, 2018 13:59
[2018-10-04 14:18] VITALS: BP 169/57
--- NOTE | 2018-10-04 18:33 | NUR ---
Patient has no new complaints throughout the shift. She has episodes of bradycardia 49-50s while asleep. Patient denies symptoms of chest pain or lightheadedness. We will continue to monitor.
[2018-10-04 19:10] VITALS: BP 174/69
[2018-10-04] MEDS: ATORVASTATIN CALCIUM 40 MG TABLET. PO SCH (20:29)
[2018-10-04 23:58] VITALS: BP 178/63
[2018-10-05 03:59] VITALS: BP 152/65
[2018-10-05] MEDS: HEPARIN for SUB-Q USE 5,000 UNIT/ML VIAL. SQ SCH ×2 (06:13→13:13)
[2018-10-05 07:09] VITALS: BP 163/61
[2018-10-05] MEDS: CARVEDILOL 12.5 MG TABLET. PO SCH ×2 (08:00→17:36)
[2018-10-05] MEDS: SEVELAMER CARBONATE 800 MG TABLET. PO SCH ×3 (08:00→17:30)
[2018-10-05 08:01] LABS: HEMATOCRIT 33.9 % (36.0-47.0); HEMOGLOBIN 11.3 g/dL (12.0-15.5); RED BLOOD COUNT 3.81 x10^6/uL (3.50-5.40); RED CELL DISTRIBUTION WIDTH 15.5 % (11.5-14.5); WHITE BLOOD COUNT 4.5 x10^3/uL (4.0-11.0)
[2018-10-05] MEDS ORDERED: IV NORMAL SALINE 1000ML BAG 1,000 ML IV PRN ×2 (08:29)
[2018-10-05 08:30] LABS: CALCIUM 8.6 mg/dL (8.5-10.1); CREATININE 9.2 mg/dL (0.6-1.0); GFR 4.3; PHOSPHORUS 5.6 mg/dL (2.6-4.7); POTASSIUM 4.7 mmol/L (3.5-5.1)
[2018-10-05] MEDS ORDERED: DIALYSIS PATIENT. MC PRN ×2 (08:30)
[2018-10-05] MEDS: LOSARTAN POTASSIUM 50 MG TABLET. PO SCH (09:00)
[2018-10-05] MEDS: SODIUM BICARBONATE 650 MG TABLET. PO SCH (09:00)
--- NOTE | 2018-10-05 12:00 | SNU/HH DC ---
DISCHARGE ORDERS DISCHARGE INFORMATION: DISCHARGE DATE: Oct 05, 2018 FINAL DIAGNOSIS Problems Medical Problems: (1) End stage renal disease Status: Acute (2) Hyperkalemia Status: Acute (3) Metabolic acidosis Status: Acute CONDITION ON DISCHARGE: Stable CODE STATUS: Code Status: Full ASSISTED: SNF STAY <30 DAYS: Yes POST DISCHARGE ORDERS: ACTIVITY ORDERS: No restrictions DIET AFTER DISCHARGE: Renal FOLLOW-UP: PHYSICIAN FOLLOW-UP: per previous, ADDITIONAL FOLLOW-UP: renal TREATMENT/EQUIPMENT ORDERS: ADAPTIVE EQUIPMENT NEEDED: None Physical Therapy For: Evalulation/Treatment DISCHARGE MEDICATIONS: Home Meds Reported Medications Loperamide Hcl (LOPERAMIDE) 2 Mg Capsule, 2 MG PO PRN for DIARRHEA, CAP 10/01/18 Sodium Bicarbonate (SODIUM BICARBONATE) 650 Mg Tablet, 2 TAB PO BID, #60 TAB 5 Refills 10/01/18 Sevelamer Carbonate (RENVELA) 800 Mg Tablet, 3 TAB PO TID, #810 TAB 3 Refills 10/01/18 Sertraline Hcl (ZOLOFT) 25 Mg Tablet, 1 TAB PO DAILY, #30 TAB 2 Refills 10/01/18 Rosuvastatin Calcium (CRESTOR) 10 Mg Tablet, 10 MG PO HS for FOR CHOLESTEROL, # 30 TAB 0 Refills 10/01/18 Losartan Potassium (LOSARTAN POTASSIUM) 50 Mg Tablet, 50 MG PO BID for HYPERTENSION, TAB 10/01/18 Clopidogrel Bisulfate (CLOPIDOGREL) 75 Mg Tablet, 1 TAB PO DAILY, #90 TAB 1 Refill 10/01/18 Carvedilol (CARVEDILOL) 25 Mg Tablet, 25 MG PO BIDWMEALS for CARDIAC, TAB 10/01/18 Aspirin (ASPIR-LOW) 81 Mg Tablet., 1 TAB PO DAILY, #30 TAB 3 Refills 10/01/18 Amlodipine Besylate (AMLODIPINE BESYLATE) 10 Mg Tablet, 10 MG PO DAILY, TAB 10/01/18 JANETH CONDE MD Oct 05, 2018 12:00
--- NOTE | 2018-10-05 12:03 | SNU/HH DC ---
DISCHARGE WITH HOME HEALTH DISCHARGE INFORMATION: Discharge Date: Oct 05, 2018 Final Diagnosis: Problems Medical Problems: (1) End stage renal disease Status: Acute (2) Hyperkalemia Status: Acute (3) Metabolic acidosis Status: Acute Condition on Discharge: Stable CODE STATUS: Code Status: Full HOME HEALTH: Face to Face: I certify this patient is under my care and that I, or a nurse practitioner or physician's facility assistant working with me, had a face to face encounter that meets the physician face to face encounter requirements with this patient on 10/05 Medical Complications: Dementia, Other (ESRD) RN For Eval/Treatment: Yes Physical Therapy For: Evalulation/Treatment Occupational Therapy For: Evaluation/Treatment Pt Meets Homebound Status: Limited distance walking, Poor cognition POST DISCHARGE ORDERS: Activity Instructions for Disc: No restrictions Weight Bearing Status after Di: No restrictions DIET AFTER DISCHARGE: Renal FOLLOW-UP: Follow up with: per previous, Follow Up With: renal TREATMENT/EQUIPMENT ORDERS: Adaptive Equipment Issued: None CERTIFICATION STATEMENT: Certification Statement: Certification Statement: Based on the above finding, I certify that this patient is confined to the home and needs intermittent alf care, physical therapy and/or speech therapy, or continues to need occupational therapy.~ This patient is under my care, and I have initiated the establishment of the plan of care.~ This patient will be followed by myself or a community physician who will periodically review the plan of care. Home Meds Reported Medications Loperamide Hcl (LOPERAMIDE) 2 Mg Capsule, 2 MG PO PRN for DIARRHEA, CAP 10/01/18 Sodium Bicarbonate (SODIUM BICARBONATE) 650 Mg Tablet, 2 TAB PO BID, #60 TAB 5 Refills 10/01/18 Sevelamer Carbonate (RENVELA) 800 Mg Tablet, 3 TAB PO TID, #810 TAB 3 Refills 10/01/18 Sertraline Hcl (ZOLOFT) 25 Mg Tablet, 1 TAB PO DAILY, #30 TAB 2 Refills 10/01/18 Rosuvastatin Calcium (CRESTOR) 10 Mg Tablet, 10 MG PO HS for FOR CHOLESTEROL, #30 TAB 0 Refills 10/01/18 Losartan Potassium (LOSARTAN POTASSIUM) 50 Mg Tablet, 50 MG PO BID for HYPERTENSION, TAB 10/01/18 Clopidogrel Bisulfate (CLOPIDOGREL) 75 Mg Tablet, 1 TAB PO DAILY, #90 TAB 1 Refill 10/01/18 Carvedilol (CARVEDILOL) 25 Mg Tablet, 25 MG PO BIDWMEALS for CARDIAC, TAB 10/01/18 Aspirin (ASPIR-LOW) 81 Mg Tablet.dr, 1 TAB PO DAILY, #30 TAB 3 Refills 10/01/18 Amlodipine Besylate (AMLODIPINE BESYLATE) 10 Mg Tablet, 10 MG PO DAILY, TAB 10/01/18 JANETH CONDE MD Oct 05, 2018 12:03
--- NOTE | 2018-10-05 12:04 | PDOC3 ---
Discharge Summary Visit Information Date of Admission: Oct 01, 2018 Date of Discharge: Oct 05, 2018 Admitting Diagnosis: debra Final Diagnosis Leukopenia - new, ESRD ON DIALYSIS - Bradycardia - improved after dialysis session Hypotension - improved overnight, held antihypertensives H/o HTN - will monitor, reconcile SNF meds - losartan, amlodipine, coreg CAD - on coreg, ASA, statin Depression - cont zoloft Acute hypoxic respiratory failure - likely 2/2 fluid overload Diastolic CHF exacerbation - cont BB, losartan, ASA, statin. UF per dialysis sessions, Problems Medical Problems: (1) End stage renal disease Status: Acute (2) Hyperkalemia Status: Acute (3) Metabolic acidosis Status: Acute Brief Hospital Course Allergies Allergies Coded Allergies Type Severity Reaction Last Updated Verified No Known Drug Allergies 10/01/18 No Vital Signs Vital Signs Date Time Temp Pulse Resp B/P (MAP) Pulse Ox O2 Delivery O2 Flow Rate FiO2 10/05/18 07:09 97.6 48 18 163/61 (95) 95 Room Air 97.6 Lab Results Laboratory Tests Test 10/04/18 07:57 10/05/18 06:34 Sodium Level 139 mmol/L (136-145) 142 mmol/L (136-145) Potassium Level 4.6 mmol/L (3.5-5.1) 4.7 mmol/L (3.5-5.1) Chloride Level 100 mmol/L (98-107) 101 mmol/L (98-107) Carbon Dioxide Level 28 mmol/L (21-32) 28 mmol/L (21-32) Anion Gap 11 (6-14) 13 (6-14) Blood Urea Nitrogen 46 mg/dL (7-20) 59 mg/dL (7-20) Creatinine 7.6 mg/dL (0.6-1.0) 9.2 mg/dL (0.6-1.0) Estimated GFR (Cockcroft-Gault) 5.3 4.3 Glucose Level 89 mg/dL (70-99) 81 mg/dL (70-99) Calcium Level 8.4 mg/dL (8.5-10.1) 8.6 mg/dL (8.5-10.1) Phosphorus Level 4.8 mg/dL (2.6-4.7) 5.6 mg/dL (2.6-4.7) Albumin 3.2 g/dL (3.4-5.0) 3.0 g/dL (3.4-5.0) White Blood Count 4.5 x10^3/uL (4.0-11.0) Red Blood Count 3.81 x10^6/uL (3.50-5.40) Hemoglobin 11.3 g/dL (12.0-15.5) Hematocrit 33.9 % (36.0-47.0) Mean Corpuscular Volume 89 fL (79-100) Mean Corpuscular Hemoglobin 30 pg (25-35) Mean Corpuscular Hemoglobin Concent 33 g/dL (31-37) Red Cell Distribution Width 15.5 % (11.5-14.5) Platelet Count 167 x10^3/uL (140-400) Laboratory Tests Test 10/05/18 06:34 White Blood Count 4.5 x10^3/uL (4.0-11.0) Red Blood Count 3.81 x10^6/uL (3.50-5.40) Hemoglobin 11.3 g/dL (12.0-15.5) Hematocrit 33.9 % (36.0-47.0) Mean Corpuscular Volume 89 fL (79-100) Mean Corpuscular Hemoglobin 30 pg (25-35) Mean Corpuscular Hemoglobin Concent 33 g/dL (31-37) Red Cell Distribution Width 15.5 % (11.5-14.5) Platelet Count 167 x10^3/uL (140-400) Sodium Level 142 mmol/L (136-145) Potassium Level 4.7 mmol/L (3.5-5.1) Chloride Level 101 mmol/L (98-107) Carbon Dioxide Level 28 mmol/L (21-32) Anion Gap 13 (6-14) Blood Urea Nitrogen 59 mg/dL (7-20) Creatinine 9.2 mg/dL (0.6-1.0) Estimated GFR (Cockcroft-Gault) 4.3 Glucose Level 81 mg/dL (70-99) Calcium Level 8.6 mg/dL (8.5-10.1) Phosphorus Level 5.6 mg/dL (2.6-4.7) Albumin 3.0 g/dL (3.4-5.0) Brief Hospital Course Ms. oJhn is a 68 old admit weak, had missed HD better here after HD Discharge Information Condition at Discharge: Improved Follow Up: Weeks Scheduled Amlodipine Besylate (Amlodipine Besylate) 10 Mg Tablet, 10 MG PO DAILY, (Reported) Entered as Reported by: GREGORY PHOENIX on 10/01/181407 Last Taken: Unknown Dose on 10/01/181400 Last Action: Continued on 10/01/181507 by JAS LAGUNA MD Aspirin (Aspir-Low) 81 Mg Tablet.dr, 1 TAB PO DAILY, #30 Ref 3 (Reported) Entered as Reported by: GREGORY PHOENIX on 10/01/181407 Last Taken: Unknown Dose on 10/01/181401 Last Action: Continued on 10/01/181507 by JAS LAGUNA MD Carvedilol (Carvedilol) 25 Mg Tablet, 25 MG PO BIDWMEALS for CARDIAC, (Reported) Entered as Reported by: GREGORY PHOENIX on 10/01/181407 Last Taken: Unknown Dose on 10/01/181401 Last Action: Converted on 1507 by JAS LAGUNA MD Clopidogrel Bisulfate (Clopidogrel) 75 Mg Tablet, 1 TAB PO DAILY, #90 Ref 1 (Reported) Entered as Reported by: GREGORY PHOENIX on 10/01/181407 Last Taken: Unknown Dose on 10/01/181402 Last Action: Continued on 10/01/181507 by JAS LAGUNA MD Losartan Potassium (Losartan Potassium) 50 Mg Tablet, 50 MG PO BID for HYPERTENSION, (Reported) Entered as Reported by: GREGORY PHOENIX on 10/01/181407 Last Taken: Unknown Dose on 10/01/181403 Last Action: Continued on 10/01/181507 by JAS LAGUNA MD Rosuvastatin Calcium (Crestor) 10 Mg Tablet, 10 MG PO HS for FOR CHOLESTEROL, #30 Ref 0 (Reported) Entered as Reported by: GREGORY PHOENIX on 10/01/181407 Last Action: Converted on 10/01/181507 by JAS LAGUNA MD Sertraline Hcl (Zoloft) 25 Mg Tablet, 1 TAB PO DAILY, #30 Ref 2 (Reported) Entered as Reported by: GREGORY PHOENIX on 4/19/19 1408 Last Taken: Unknown Dose on 10/01/181404 Last Action: Converted on 10/01/181507 by JAS LAGUNA MD Sevelamer Carbonate (Renvela) 800 Mg Tablet, 3 TAB PO TID, #810 Ref 3 (Reported) Entered as Reported by: GREGORY PHOENIX on 10/01/181407 Last Taken: Unknown Dose on 10/01/181405 Last Action: Continued on 10/01/181507 by JAS LAGUNA MD Sodium Bicarbonate (Sodium Bicarbonate) 650 Mg Tablet, 2 TAB PO BID, #60 Ref 5 (Reported) Entered as Reported by: GREGORY PHOENIX on 10/01/181407 Last Taken: Unknown Dose on 10/01/181405 Last Action: Continued on 10/01/181507 by JAS LAGUNA MD Scheduled PRN Loperamide Hcl (Loperamide) 2 Mg Capsule, 2 MG PO for DIARRHEA, (Reported) Entered as Reported by: GREGORY PHOENIX on 10/01/181407 Last Action: New Order on 10/01/181407 by JANETH GRAHAM MD Oct 05, 2018 12:04
--- NOTE | 2018-10-05 12:31 | PDOC ---
Renal-Progress Notes Subjective Notes Notes NO NEW COMPLAINTS History of Present Illness Hx of present illness STABLE Vitals Vitals Vital Signs Date Time Temp Pulse Resp B/P (MAP) Pulse Ox O2 Delivery O2 Flow Rate FiO2 10/05/18 07:09 97.6 48 18 163/61 (95) 95 Room Air 97.6 Weight Weight [ ] I.O. Intake and Output Intake and Output 10/05/18 07:00 Intake Total 2710 ml Balance 2710 ml Intake Oral 2710 ml # Voids 1 Labs Labs Laboratory Tests Test 10/05/18 06:34 White Blood Count 4.5 x10^3/uL (4.0-11.0) Red Blood Count 3.81 x10^6/uL (3.50-5.40) Hemoglobin 11.3 g/dL (12.0-15.5) Hematocrit 33.9 % (36.0-47.0) Mean Corpuscular Volume 89 fL (79-100) Mean Corpuscular Hemoglobin 30 pg (25-35) Mean Corpuscular Hemoglobin Concent 33 g/dL (31-37) Red Cell Distribution Width 15.5 % (11.5-14.5) Platelet Count 167 x10^3/uL (140-400) Sodium Level 142 mmol/L (136-145) Potassium Level 4.7 mmol/L (3.5-5.1) Chloride Level 101 mmol/L (98-107) Carbon Dioxide Level 28 mmol/L (21-32) Anion Gap 13 (6-14) Blood Urea Nitrogen 59 mg/dL (7-20) Creatinine 9.2 mg/dL (0.6-1.0) Estimated GFR (Cockcroft-Gault) 4.3 Glucose Level 81 mg/dL (70-99) Calcium Level 8.6 mg/dL (8.5-10.1) Phosphorus Level 5.6 mg/dL (2.6-4.7) Albumin 3.0 g/dL (3.4-5.0) Review of Systems Constitutional: yes: weakness, alert, oriented Ears/Nose/Throat: Yes: no symptom reported Eyes: Yes: no symptom reported Pulmonary: Yes no symptom reported Cardiovascular: Yes no symptom reported Gastrointestional: Yes: no symptom reported Genitourinary: Yes: no symptom reported Musculoskeletal: Yes: no symptom reported Skin: Yes no symptom reported Psychiatric/Neurological: Yes: no symptom reported Endocrine: Yes: no symptom reported Physical Exam General Appearance: no apparent distress Skin: warm Respiratory: bilateral CTA Heart: S1S2 Abdomen: soft, bowel sounds present Genitourinary: bladder flat Extremities: pulses present Neurology: alert Assessment Assessment IMPRESSION ESRD NON COMPLIANCE HYPERKALEMIA WEAKNESS DUE TO ABOVE PLAN ENC COMPLIANCE HD TODAY UF TO JOSAFAT ARREOLA MD Oct 05, 2018 12:31
[2018-10-05] MEDS: SERTRALINE 25 MG TABLET. PO SCH (12:59)
[2018-10-05] MEDS: CLOPIDOGREL BISULFATE 75 MG TABLET PO SCH (13:00)
[2018-10-05] MEDS: ASPIRIN ENTERIC COATED 81 MG TABLET.DR. PO SCH (13:00)
[2018-10-05] MEDS: amLODIPine BESYLATE 10 MG TABLET PO SCH (13:09)
--- NOTE | 2018-10-05 13:57 | NUR ---
SW following pt for dc planning. Pt lives at [facility]. Spoke with pt at bedside and she requested SW to speak with her son. Spoke with pt's son, Son Ronnie, phone; [phone] via phone about HH options. He reported pt has not used home health and SW discussed [facility] works with [facility]/He is agreeable as long as it is covered with insurance. Clinicals faxed to [place] and [facility]. Spoke with Lucia at [facility] and confirmed pt's plan of return to facility today. Pt's choice and rights forms verbally consented by pt's son and on chart. Son reported he will be able to pick pt today. CONNER SHIELDS.
[2018-10-05 14:47] VITALS: BP 159/62
[2018-10-05 17:36] VITALS: BP 177/63
--- NOTE | 2018-10-05 20:09 | NUR ---
Patient discharged home, accompanied by family
== END 2018-10-05 19:45 | disposition home or self-care (01) | DRG 640 ==
LOC: ER 11:48 → 1 WEST ICU 13:01 → 6 SOUTH 10-02 09:37
PROVIDERS: ADMIT Family Medicine; ATTEND Family Medicine
PROC: 5A1D70Z Performance of Urinary Filtration, Intermittent, Less than 6 Hours Per Day (ICD-10-PCS; principal; 2018-10-01)
PROC: 5A1D70Z Performance of Urinary Filtration, Intermittent, Less than 6 Hours Per Day (ICD-10-PCS; 2018-10-02)
PROC: 5A1D70Z Performance of Urinary Filtration, Intermittent, Less than 6 Hours Per Day (ICD-10-PCS; 2018-10-05)
DX: E87.5 Hyperkalemia (principal); I50.33 Acute on chronic diastolic (congestive) heart failure; J96.01 Acute respiratory failure with hypoxia; N18.6 End stage renal disease; I13.2 Hypertensive heart and chronic kidney disease with heart failure and with stage 5 chronic kidney disease, or end stage renal disease; E87.2 Acidosis; I95.9 Hypotension, unspecified; D72.819 Decreased white blood cell count, unspecified; I25.10 Atherosclerotic heart disease of native coronary artery without angina pectoris; F32.9 Major depressive disorder, single episode, unspecified; L29.9 Pruritus, unspecified; Z99.2 Dependence on renal dialysis; Z91.15 Patient's noncompliance with renal dialysis; Z91.19 Patient's noncompliance with other medical treatment and regimen
CPT/HCPCS: 36415; 70450; 71045; 80048; 80053; 80069; 80076; 82962; 83690; 83880; 84484; 85025; 85027; 87641; 93005; 94644; 96374; 96375; J0610; J1644; J1815; J2270; J7042; J7613; 99291-25

== ENCOUNTER 2018-12-01 16:42 | Inpatient (IN) | payer MEDICARE ==
[~2018-12-01] VITALS: Ht 157.5 cm; Wt 54.9 kg
[~2018-12-01 16:42] MED LIST: AMLO10TA8 PO; ASPI81TA50 PO; CARV25TA2 PO; CLOP75TA PO; CRESTOR10 MG PO; LOPE2CAP PO; LOSA-73 PO; SERT25TA PO; SEVE800T9 PO; SODI650T PO
--- NOTE | 2018-12-01 17:06 | PHYS DOC ---
Past Medical History Past Medical History: Hypertension Additional Past Medical Histor: FISTULA LEFT ARM Past Surgical History: Other Additional Past Surgical Histo: LEFT FISTULA, Alcohol Use: None Drug Use: None Adult General Chief Complaint Chief Complaint: CHEST PAIN HPI HPI Pt speaks Bulgarian translation phone was used for communication. 68-year-old female presents to ER via EMS from her dialysis center. EMS reported that about one hour into her treatment she developed substernal chest pain denying any radiation to neck, extremities, or back. 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 Pt reports mid chest pressure has improved following txs and pain minimal. She denies SOA, abd pain, nausea, or focal weakness. Pt appears fatigued but is A&Ox3 answering questions approp. No family at bedside. Review of Systems Review of Systems Constitutional: Denies fever or chills [] Eyes: Denies change in visual acuity, redness, or eye pain [] HENT: Denies nasal congestion or sore throat [] Respiratory: Denies cough or shortness of breath [] Cardiovascular: Reports mid chest pressure which has improved- denies radiation of pain GI: Denies abdominal pain, nausea, vomiting, bloody stools or diarrhea [] : Denies dysuria or hematuria [] Musculoskeletal: Denies back/neck pain or joint pain [] Integument: Denies rash or skin lesions [] Neurologic: Denies headache, focal weakness or sensory changes. Denies dizziness Endocrine: Denies polyuria or polydipsia [] All other systems were reviewed and found to be within normal limits, except as documented in this note. Current Medications Current Medications Current Medications Medications (Trade) Dose Ordered Sig/Mci Start Time Stop Time Status Last Admin Dose Admin Fentanyl Citrate (Fentanyl 2ml Vial) 25 mcg 1X ONCE 12/01/18 18:00 12/01/18 18:01 DC 12/01/18 18:03 25 MCG Allergies Allergies Allergies Coded Allergies Type Severity Reaction Last Updated Verified No Known Drug Allergies 10/01/18 No Physical Exam Physical Exam Constitutional: Well developed, well nourished, no acute distress, non-toxic appearance. Fatigued appearance HENT: Normocephalic, atraumatic, oropharynx moist, nose normal. [] Eyes: Pupils equal, conjunctiva normal, no discharge. [] Neck: Normal range of motion, no tenderness, supple, no stridor. [] Cardiovascular: Bradycardic heart rate regular rhythm, no murmur [] Lungs & Thorax: Bilateral breath sounds clear to auscultation- resp. equal/nonlabored. No chest wall tenderness/crepitus Abdomen: Bowel sounds normal, soft, no tenderness, no masses, no pulsatile masses. [] Skin: Warm, dry, no erythema, no rash. [] Back: No tenderness, no CVA tenderness. [] Extremities: No tenderness, no cyanosis, no clubbing, ROM intact, no edema. [] Neurologic: Alert and oriented X 3, normal motor function, normal sensory function, no focal deficits noted. [] Psychologic: Affect normal, judgement normal, mood normal. [] Current Patient Data Vital Signs Vital Signs Date Time Temp Pulse Resp B/P (MAP) Pulse Ox O2 Delivery O2 Flow Rate FiO2 12/01/18 18:00 50 18 161/84 (109) 100 Room Air 12/01/18 16:43 97.7 97.7 Lab Values Laboratory Tests Test 12/01/18 17:00 White Blood Count 5.3 x10^3/uL (4.0-11.0) Red Blood Count 3.36 x10^6/uL (3.50-5.40) L Hemoglobin 10.5 g/dL (12.0-15.5) L Hematocrit 30.3 % (36.0-47.0) L Mean Corpuscular Volume 90 fL (79-100) Mean Corpuscular Hemoglobin 31 pg (25-35) Mean Corpuscular Hemoglobin Concent 35 g/dL (31-37) Red Cell Distribution Width 15.1 % (11.5-14.5) H Platelet Count 224 x10^3/uL (140-400) Neutrophils (%) (Auto) 70 % (31-73) Lymphocytes (%) (Auto) 20 % (24-48) L Monocytes (%) (Auto) 7 % (0-9) Eosinophils (%) (Auto) 3 % (0-3) Basophils (%) (Auto) 1 % (0-3) Neutrophils # (Auto) 3.7 x10^3uL (1.8-7.7) Lymphocytes # (Auto) 1.1 x10^3/uL (1.0-4.8) Monocytes # (Auto) 0.3 x10^3/uL (0.0-1.1) Eosinophils # (Auto) 0.2 x10^3/uL (0.0-0.7) Basophils # (Auto) 0.0 x10^3/uL (0.0-0.2) D-Dimer (Rosa M) 0.37 ug/mlFEU (0.00-0.50) Sodium Level 141 mmol/L (136-145) Potassium Level 4.8 mmol/L (3.5-5.1) Chloride Level 102 mmol/L (98-107) Carbon Dioxide Level 31 mmol/L (21-32) Anion Gap 8 (6-14) Blood Urea Nitrogen 36 mg/dL (7-20) H Creatinine 4.9 mg/dL (0.6-1.0) H Estimated GFR (Cockcroft-Gault) 8.9 BUN/Creatinine Ratio 7 (6-20) Glucose Level 182 mg/dL (70-99) H Calcium Level 9.2 mg/dL (8.5-10.1) Magnesium Level 2.3 mg/dL (1.8-2.4) Total Bilirubin 0.3 mg/dL (0.2-1.0) Aspartate Amino Transferase (AST) 19 U/L (15-37) Alanine Aminotransferase (ALT) 29 U/L (14-59) Alkaline Phosphatase 65 U/L (46-116) Troponin I Quantitative < 0.017 ng/mL (0.000-0.055) Total Protein 7.5 g/dL (6.4-8.2) Albumin 3.9 g/dL (3.4-5.0) Albumin/Globulin Ratio 1.1 (1.0-1.7) Laboratory Tests 12/01/18 17:00 Laboratory Tests 12/01/18 17:00 EKG EKG EKG obtained 12/01/18 at [address] Soto Sinus bradycardia Rate 48 No STEMI Radiology/Procedures Radiology/Procedures PROCEDURE: CHEST AP ONLY CHEST AP ONLY History: Mid chest pain Comparison: October 01, 2018 Findings: Single view of the chest is submitted. Pericardial cardiac silhouette is again enlarged. There is atherosclerotic calcification near aortic arch. There is no pneumothorax or dependent pleural fluid. No lobar infiltrate is identified. Impression: 1. There is again enlargement of the pericardial cardiac silhouette. Electronically signed by: Yusef Willoughby MD (12/01/2018 5:24 PM) [id number] DICTATED and SIGNED BY: YUSEF WILLOUGHBY MD DATE: 12/01/181723 Course & Med Decision Making Course & Med Decision Making Pertinent Labs and Imaging studies reviewed. (See chart for details) With patient having onset of midsternal chest pain one hour prior to arrival to ER she will be admitted to the hospital to complete serial cardiac enzymes and for further monitoring. Patient's EKG with no acute ST elevation or STEMI and troponin was negative. Patient has remained in bradycardic rhythm ranging from 47-51 on the monitor. Chest x-ray was negative for acute findings. Patient did continue to complain of mid chest pressure so dose of fentanyl was provided. Will admit patient to hospitalist and consult cardiology with admit orders. 1759: Spoke with Dr. Wilson, hospitalist and discussed pt's case and admit plan. Translation phone used to further discuss patient's history. She is reporting she had left arm dialysis catheter placed last week and was put to sleep. Will add d-dimer to test for further evaluation. No records found of this in patient's records. No family has arrived to bedside. Patient during discussion closes her eyes and that she wakes to voice command and is not providing much information. DDimer was NL 0.37. Dragon Disclaimer Dragon Disclaimer This electronic medical record was generated, in whole or in part, using a voice recognition dictation system. Departure Departure Impression: Primary Impression: Chest pain Disposition: ADMITTED INPATIENT Admitting Physician: PREET Condition: STABLE Referrals: MAUREEN BEAN MD (PCP) SHELLI SRIVASTAVA APRN Dec 01, 2018 17:06
[2018-12-01 17:11] LABS: BASO % 1 % (0-3); EOS # 0.2 x10^3/uL (0.0-0.7); EOS % 3 % (0-3); HEMATOCRIT 30.3 % (36.0-47.0); HEMOGLOBIN 10.5 g/dL (12.0-15.5); LYMPH # 1.1 x10^3/uL (1.0-4.8); LYMPH % 20 % (24-48); MEAN CORPUSCULAR HEMOGLOBIN 31 pg (25-35); MEAN CORPUSCULAR HGB CONC 35 g/dL (31-37); MEAN CORPUSCULAR VOLUME 90 fL (79-100); MONO # 0.3 x10^3/uL (0.0-1.1); MONO % 7 % (0-9); NEUT # 3.7 x10^3uL (1.8-7.7); NEUT % 70 % (31-73); PLATELET COUNT 224 x10^3/uL (140-400); RED BLOOD COUNT 3.36 x10^6/uL (3.50-5.40); RED CELL DISTRIBUTION WIDTH 15.1 % (11.5-14.5); WHITE BLOOD COUNT 5.3 x10^3/uL (4.0-11.0)
--- NOTE | 2018-12-01 17:27 | RAD ---
CHEST AP ONLY History: Mid chest pain Comparison: October 01, 2018 Findings: Single view of the chest is submitted. Pericardial cardiac silhouette is again enlarged. There is atherosclerotic calcification near aortic arch. There is no pneumothorax or dependent pleural fluid. No lobar infiltrate is identified. Impression: 1. There is again enlargement of the pericardial cardiac silhouette. Electronically signed by: Chaim Bennett MD (12/01/2018 5:24 PM) [facility]
[2018-12-01 17:35] LABS: CALCIUM 9.2 mg/dL (8.5-10.1); CREATININE 4.9 mg/dL (0.6-1.0); GFR 8.9; POTASSIUM 4.8 mmol/L (3.5-5.1)
[2018-12-01 17:41] LABS: ALBUMIN 3.9 g/dL (3.4-5.0); ALBUMIN/GLOBULIN RATIO 1.1 (1.0-1.7); MAGNESIUM 2.3 mg/dL (1.8-2.4); TOTAL BILIRUBIN 0.3 mg/dL (0.2-1.0); TOTAL PROTEIN 7.5 g/dL (6.4-8.2)
[2018-12-01] MEDS ORDERED: fentaNYL PF VIAL 100 MCG/2 ML VIAL IV ONE (18:00)
[2018-12-01] MEDS: fentaNYL PF VIAL 100 MCG/2 ML VIAL IV PRN ×2 (19:29→22:45)
[2018-12-01] MEDS ORDERED: ONDANSETRON PF 4 MG/2 ML VIAL. IV PRN (19:30)
[2018-12-01 19:50] VITALS: BP 165/49
--- NOTE | 2018-12-01 19:50 | NUR ---
The patient, MARCO A HOOD, 68 y/o, F admitted by MAYRA PLEITEZ III, DO, was given written information regarding hospital policies, unit procedures and contact persons.Patient's primary language is Belarusian. Valuables were checked and Rn will continue to monitor.
[2018-12-01 22:34] VITALS: BP 187/78
--- NOTE | 2018-12-01 22:49 | HP ---
ADMIT DATE: 12/01/2018 CHIEF COMPLAINT: Chest pain. HISTORY OF PRESENT ILLNESS: The patient is a pleasant middle-aged, Italian female who speaks little Sinhala basically presented to the ER with complaint of chest pain. She rated it 9/10. She has associated left arm pain. She is a dialysis patient. In fact, the pain started today during dialysis. Movement makes it worse. I discussed the case with ER physician. We are going to admit the patient and consult Cardiology. PAST MEDICAL HISTORY: End-stage renal disease, on dialysis, left arm fistula, hypertension. ALLERGIES: None. FAMILY HISTORY: Hypertension. SOCIAL HISTORY: She does not drink, smoke or take drugs. MEDICATIONS: Reviewed, please refer to the MRAD. REVIEW OF SYSTEMS: GENERAL: No history of weight change, weakness or fevers. SKIN: No bruising, hair changes or rashes. EYES: No blurred, double or loss of vision. NOSE AND THROAT: No history of nosebleeds, hoarseness or sore throat. HEART: She complains of chest pain. LUNGS: Denies cough, hemoptysis, wheezing or shortness of breath. GASTROINTESTINAL: Denies changes in appetite, nausea, vomiting, diarrhea or constipation. GENITOURINARY: No history of frequency, urgency, hesitancy or nocturia. NEUROLOGIC: Denies history of numbness, tingling, tremor or weakness. PSYCHIATRIC: No history of panic, anxiety or depression. ENDOCRINE: No history of heat or cold intolerance, polyuria or polydipsia. EXTREMITIES: Denies muscle weakness, joint pain, pain on walking or stiffness. PHYSICAL EXAMINATION: VITAL SIGNS: Temperature afebrile, pulse 92, respirations 18, blood pressure 142/90. GENERAL: She is sleeping. She awakens, pleasant, complaint of left arm pain. HEART: Normal S1, S2. LUNGS: Clear to auscultation. ABDOMEN: Soft, positive bowel sounds. EXTREMITIES: The left arm has some slight swelling, painful to touch. ENDOCRINE: No thyromegaly. LYMPHATICS: No cervical nodes. HEMATOPOIETIC: No bruising noted. PSYCHIATRIC: She seems depressed. LABORATORY DATA: White count is 5, hemoglobin 10, creatinine is 4.9, BUN 36. Troponin 0.017. ASSESSMENT AND PLAN: Chest pain, rule out coronary artery disease. The patient has been admitted. We will consult Cardiology, serial enzymes, serial EKGs, cardiac monitoring. Consult Nephrology. Home meds, frequent labs. MAYRA PLEITEZ DO DR: PAVITHRA/brad JOB#: [id number] / [id number]
[2018-12-02 01:39] LABS: BASO % 1 % (0-3); EOS # 0.2 x10^3/uL (0.0-0.7); EOS % 3 % (0-3); HEMOGLOBIN 9.8 g/dL (12.0-15.5); LYMPH # 1.4 x10^3/uL (1.0-4.8); LYMPH % 29 % (24-48); MEAN CORPUSCULAR HEMOGLOBIN 30 pg (25-35); MEAN CORPUSCULAR HGB CONC 34 g/dL (31-37); MEAN CORPUSCULAR VOLUME 90 fL (79-100); MONO # 0.4 x10^3/uL (0.0-1.1); MONO % 9 % (0-9); NEUT # 2.8 x10^3uL (1.8-7.7); NEUT % 58 % (31-73); PLATELET COUNT 202 x10^3/uL (140-400); RED BLOOD COUNT 3.22 x10^6/uL (3.50-5.40); RED CELL DISTRIBUTION WIDTH 14.5 % (11.5-14.5); WHITE BLOOD COUNT 4.8 x10^3/uL (4.0-11.0)
[2018-12-02 01:58] LABS: ALBUMIN 3.4 g/dL (3.4-5.0); CALCIUM 8.9 mg/dL (8.5-10.1); CREATININE 6.1 mg/dL (0.6-1.0); GFR 6.9; POTASSIUM 5.2 mmol/L (3.5-5.1); TOTAL BILIRUBIN 0.3 mg/dL (0.2-1.0); TOTAL PROTEIN 6.8 g/dL (6.4-8.2)
[2018-12-02 02:19] VITALS: BP 167/72
--- NOTE | 2018-12-02 06:12 | EKG ---
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
[2018-12-02 07:00] VITALS: BP 182/60
[2018-12-02] MEDS ORDERED: ACETAMINOPHEN 500 MG TABLET PO PRN (09:00)
[2018-12-02] MEDS: LOSARTAN POTASSIUM 50 MG TABLET. PO SCH ×2 (09:00→21:33)
[2018-12-02] MEDS ORDERED: ONDANSETRON PF 4 MG/2 ML VIAL. IV PRN (09:00)
[2018-12-02] MEDS ORDERED: SEVELAMER CARBONATE 800 MG TABLET. PO SCH (09:00)
[2018-12-02] MEDS ORDERED: CARVEDILOL 12.5 MG TABLET. PO SCH (09:00)
[2018-12-02] MEDS: amLODIPine BESYLATE 10 MG TABLET PO SCH (09:00)
--- NOTE | 2018-12-02 10:10 | PDOC2 ---
JARRETT SALDANA MANAGER CREATIVE 12/02/18 1010: CARDIAC CONSULT DATE OF CONSULT Date of Consult DATE: 12/02/18 TIME: 09:53 REASON FOR CONSULT Reason for Consult: Chest pain REFERRING PHYSICIAN Referring Physician: Asim SOURCE Source: Chart review, Patient HISTORY OF PRESENT ILLNESS HISTORY OF PRESENT ILLNESS This is a pleasant 68 yo Slovak female admitted for complains of chest pain. 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 Reported that her symptoms started at the end of her dialysis. She started getting midchest pressure that radiated to both shoulders and also with some SOA and felt clammy but nausea or palpitations. This lasted 15 minutes with no recurrence. Denies any prior exertional CP nor GODINEZ in the recent weeks. No falls, injury and no recent heavy lifting. Verbalized med compliance and has had PCI/stents which was done at [facility] probably a yr ago. She has been on dialysis for over a yr due to her DM and HTN. PAST MEDICAL HISTORY Cardiovascular: CAD, HTN, Hyperlipidemia Pulmonary: No pertinent hx CENTRAL NERVOUS SYSTEM: Other (No pertinent history) GI: No pertinent hx Heme/Onc: Anemia NOS Hepatobiliary: No pertinent hx Psych: No pertinent hx Musculoskeletal: low back pain Rheumatologic: No pertinent hx Infectious disease: No pertinent hx ENT: No pertinent hx Renal/: Chronic renal failure Endocrine: Diabetes PAST SURGICAL HISTORY Past Surgical History: Other (LA AV dialysis fistula; PCI/stents) FAMILY HISTORY Family History: Hypertension SOCIAL HISTORY Smoke: No ALCOHOL: none Drugs: None Lives: with Family CURRENT MEDICATIONS CURRENT MEDICATIONS Current Medications Medications (Trade) Dose Ordered Sig/Mic Route PRN Reason Start Time Stop Time Status Last Admin Dose Admin Fentanyl Citrate (Fentanyl 2ml Vial) 25 mcg 1X ONCE IV 12/01/18 18:00 12/01/18 18:01 DC 12/01/18 18:03 Fentanyl Citrate (Fentanyl 2ml Vial) 25 mcg PRN Q3HRS PRN IV PAIN 12/01/18 19:30 12/02/18 19:29 12/01/18 22:45 ALLERGIES ALLERGIES: Coded Allergies: No Known Drug Allergies (Unverified , 10/01/18) ROS Review of System 14 point ROS evaluated with pertinent positives noted per HPI PHYSICAL EXAM General: Alert, Oriented X3, Cooperative, No acute distress HEENT: Atraumatic, Mucous membr. moist/pink Lungs: Clear to auscultation, Normal air movement Heart: Regular rate (SR/SB), Normal S1, Normal S2, Other (3/6 systolic murmur to LLS border) Abdomen: Soft, No tenderness Extremities: No cyanosis, No edema Skin: No breakdown, No significant lesion Neuro: Normal speech, Sensation intact Psych/Mental Status: Mental status NL, Other (flat affect) MUSCULOSKELETAL: Full range of motion without pain VITALS VITALS Vital Signs Date Time Temp Pulse Resp B/P (MAP) Pulse Ox O2 Delivery O2 Flow Rate FiO2 12/02/18 07:00 98.5 52 14 182/60 (100) 90 Room Air 98.5 LABS Lab: Laboratory Tests Test 12/01/18 17:00 12/01/18 21:11 12/01/18 22:15 12/02/18 01:25 White Blood Count 5.3 x10^3/uL (4.0-11.0) 4.8 x10^3/uL (4.0-11.0) Red Blood Count 3.36 x10^6/uL (3.50-5.40) 3.22 x10^6/uL (3.50-5.40) Hemoglobin 10.5 g/dL (12.0-15.5) 9.8 g/dL (12.0-15.5) Hematocrit 30.3 % (36.0-47.0) 29.0 % (36.0-47.0) Mean Corpuscular Volume 90 fL (79-100) 90 fL (79-100) Mean Corpuscular Hemoglobin 31 pg (25-35) 30 pg (25-35) Mean Corpuscular Hemoglobin Concent 35 g/dL (31-37) 34 g/dL (31-37) Red Cell Distribution Width 15.1 % (11.5-14.5) 14.5 % (11.5-14.5) Platelet Count 224 x10^3/uL (140-400) 202 x10^3/uL (140-400) Neutrophils (%) (Auto) 70 % (31-73) 58 % (31-73) Lymphocytes (%) (Auto) 20 % (24-48) 29 % (24-48) Monocytes (%) (Auto) 7 % (0-9) 9 % (0-9) Eosinophils (%) (Auto) 3 % (0-3) 3 % (0-3) Basophils (%) (Auto) 1 % (0-3) 1 % (0-3) Neutrophils # (Auto) 3.7 x10^3uL (1.8-7.7) 2.8 x10^3uL (1.8-7.7) Lymphocytes # (Auto) 1.1 x10^3/uL (1.0-4.8) 1.4 x10^3/uL (1.0-4.8) Monocytes # (Auto) 0.3 x10^3/uL (0.0-1.1) 0.4 x10^3/uL (0.0-1.1) Eosinophils # (Auto) 0.2 x10^3/uL (0.0-0.7) 0.2 x10^3/uL (0.0-0.7) Basophils # (Auto) 0.0 x10^3/uL (0.0-0.2) 0.0 x10^3/uL (0.0-0.2) D-Dimer (Rosa M) 0.37 ug/mlFEU (0.00-0.50) Sodium Level 141 mmol/L (136-145) 142 mmol/L (136-145) Potassium Level 4.8 mmol/L (3.5-5.1) 5.2 mmol/L (3.5-5.1) Chloride Level 102 mmol/L (98-107) 104 mmol/L (98-107) Carbon Dioxide Level 31 mmol/L (21-32) 29 mmol/L (21-32) Anion Gap 8 (6-14) 9 (6-14) Blood Urea Nitrogen 36 mg/dL (7-20) 42 mg/dL (7-20) Creatinine 4.9 mg/dL (0.6-1.0) 6.1 mg/dL (0.6-1.0) Estimated GFR (Cockcroft-Gault) 8.9 6.9 BUN/Creatinine Ratio 7 (6-20) 7 (6-20) Glucose Level 182 mg/dL (70-99) 94 mg/dL (70-99) Calcium Level 9.2 mg/dL (8.5-10.1) 8.9 mg/dL (8.5-10.1) Magnesium Level 2.3 mg/dL (1.8-2.4) Total Bilirubin 0.3 mg/dL (0.2-1.0) 0.3 mg/dL (0.2-1.0) Aspartate Amino Transf (AST/SGOT) 19 U/L (15-37) 13 U/L (15-37) Alanine Aminotransferase (ALT/SGPT) 29 U/L (14-59) 24 U/L (14-59) Alkaline Phosphatase 65 U/L (46-116) 57 U/L (46-116) Troponin I Quantitative < 0.017 ng/mL (0.000-0.055) < 0.017 ng/mL (0.000-0.055) 0.019 ng/mL (0.000-0.055) Total Protein 7.5 g/dL (6.4-8.2) 6.8 g/dL (6.4-8.2) Albumin 3.9 g/dL (3.4-5.0) 3.4 g/dL (3.4-5.0) Albumin/Globulin Ratio 1.1 (1.0-1.7) 1.0 (1.0-1.7) Glucose (Fingerstick) 145 mg/dL (70-99) Test 12/02/18 07:12 Glucose (Fingerstick) 99 mg/dL (70-99) ASSESSMENT/PLAN ASSESSMENT/PLAN 1. Chest pain: trops nml, EKG SB with nonspecific ST-T wave changes virtually unchanged by comparison. No further recurrence 2. HTN: labile episodes 3. HLP 4. ESRD 5. DM2 6. CAD: PCI/stents at [facility] about a yr ago peer pt. 7. Asymptomatic SB: lowest in the 40s no pauses. Recommendations 1. Repeat trop, TSH, lipids. 2. TTE, obtain cardiac records from [facility] 3. Continue with ASA/plavix. restart BP meds. 4. Decrease coreg and start on imdur 5. further cardiac workup such as MPI possibly outpt pending records and test 6. Fluid off loading per HD. Records review 1520 PCI at [facility] 06/24/2017 Mild diffuse disease to LAD, moderate luminal irregularities to LCx, OM3 2mm with 80% lesion, PCI/LIZA to RCA noted with thrombotic lesion MANUEL SIN MD 12/02/181956: CARDIAC CONSULT ASSESSMENT/PLAN ASSESSMENT/PLAN Pt. seen and examined. 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 Trop negative. Echo wnl. Continue med mgt for HTN. Supportive care. Ok to DC tomorrow and f/u outpt. JARRETT SALDANA APRN Dec 02, 2018 10:10 MANUEL SIN MD Dec 02, 2018 19:57
[2018-12-02 10:17] LABS: CHOLESTEROL/HDL RATIO 2.6; POTASSIUM 5.1 mmol/L (3.5-5.1)
[2018-12-02 11:00] VITALS: BP 169/58
[2018-12-02] MEDS: CLOPIDOGREL BISULFATE 75 MG TABLET PO SCH (11:36)
[2018-12-02] MEDS: SERTRALINE 25 MG TABLET. PO SCH (11:36)
[2018-12-02] MEDS: SODIUM BICARBONATE 650 MG TABLET. PO SCH ×2 (11:36→21:31)
[2018-12-02] MEDS: ASPIRIN ENTERIC COATED 81 MG TABLET.DR. PO SCH (11:36)
[2018-12-02] MEDS: ACETAMINOPHEN/CODEINE 300/30MG TABLET. PO PRN ×2 (11:36→17:35)
--- NOTE | 2018-12-02 11:47 | PDOC ---
PROGRESS NOTES Chief Complaint Chief Complaint ESRD on dialysis Anemia of ESRD Chest pain Hyperkalemia Fatigue Accelerated hypertension Bradycardia History of Present Illness History of Present Illness She is having a bedside echo She still feels unwell Minimal by mouth intake Blood pressure high, heart rate in the low side K5.2 Plan: Dialysis per renal Add hydralazine when necessary Await for this echo PT OT LAbs tmr Vitals Vitals Vital Signs Date Time Temp Pulse Resp B/P (MAP) Pulse Ox O2 Delivery O2 Flow Rate FiO2 12/02/18 11:36 Room Air 12/02/18 07:00 98.5 52 14 182/60 (100) 90 98.5 Physical Exam General: Alert, Oriented X3, Cooperative, No acute distress Heart: Regular rate (SR/SB), Normal S1, Normal S2, Other (3/6 systolic murmur to LLS border) Lungs: Clear, Wheezing Abdomen: Soft, No tenderness Extremities: No cyanosis, No edema Skin: No breakdown, No significant lesion Labs LABS Laboratory Tests Test 12/01/18 17:00 12/01/18 21:11 12/01/18 22:15 12/02/18 01:25 White Blood Count 5.3 x10^3/uL (4.0-11.0) 4.8 x10^3/uL (4.0-11.0) Red Blood Count 3.36 x10^6/uL (3.50-5.40) 3.22 x10^6/uL (3.50-5.40) Hemoglobin 10.5 g/dL (12.0-15.5) 9.8 g/dL (12.0-15.5) Hematocrit 30.3 % (36.0-47.0) 29.0 % (36.0-47.0) Mean Corpuscular Volume 90 fL (79-100) 90 fL (79-100) Mean Corpuscular Hemoglobin 31 pg (25-35) 30 pg (25-35) Mean Corpuscular Hemoglobin Concent 35 g/dL (31-37) 34 g/dL (31-37) Red Cell Distribution Width 15.1 % (11.5-14.5) 14.5 % (11.5-14.5) Platelet Count 224 x10^3/uL (140-400) 202 x10^3/uL (140-400) Neutrophils (%) (Auto) 70 % (31-73) 58 % (31-73) Lymphocytes (%) (Auto) 20 % (24-48) 29 % (24-48) Monocytes (%) (Auto) 7 % (0-9) 9 % (0-9) Eosinophils (%) (Auto) 3 % (0-3) 3 % (0-3) Basophils (%) (Auto) 1 % (0-3) 1 % (0-3) Neutrophils # (Auto) 3.7 x10^3uL (1.8-7.7) 2.8 x10^3uL (1.8-7.7) Lymphocytes # (Auto) 1.1 x10^3/uL (1.0-4.8) 1.4 x10^3/uL (1.0-4.8) Monocytes # (Auto) 0.3 x10^3/uL (0.0-1.1) 0.4 x10^3/uL (0.0-1.1) Eosinophils # (Auto) 0.2 x10^3/uL (0.0-0.7) 0.2 x10^3/uL (0.0-0.7) Basophils # (Auto) 0.0 x10^3/uL (0.0-0.2) 0.0 x10^3/uL (0.0-0.2) D-Dimer (Rosa M) 0.37 ug/mlFEU (0.00-0.50) Sodium Level 141 mmol/L (136-145) 142 mmol/L (136-145) Potassium Level 4.8 mmol/L (3.5-5.1) 5.2 mmol/L (3.5-5.1) Chloride Level 102 mmol/L (98-107) 104 mmol/L (98-107) Carbon Dioxide Level 31 mmol/L (21-32) 29 mmol/L (21-32) Anion Gap 8 (6-14) 9 (6-14) Blood Urea Nitrogen 36 mg/dL (7-20) 42 mg/dL (7-20) Creatinine 4.9 mg/dL (0.6-1.0) 6.1 mg/dL (0.6-1.0) Estimated GFR (Cockcroft-Gault) 8.9 6.9 BUN/Creatinine Ratio 7 (6-20) 7 (6-20) Glucose Level 182 mg/dL (70-99) 94 mg/dL (70-99) Calcium Level 9.2 mg/dL (8.5-10.1) 8.9 mg/dL (8.5-10.1) Magnesium Level 2.3 mg/dL (1.8-2.4) Total Bilirubin 0.3 mg/dL (0.2-1.0) 0.3 mg/dL (0.2-1.0) Aspartate Amino Transf (AST/SGOT) 19 U/L (15-37) 13 U/L (15-37) Alanine Aminotransferase (ALT/SGPT) 29 U/L (14-59) 24 U/L (14-59) Alkaline Phosphatase 65 U/L (46-116) 57 U/L (46-116) Troponin I Quantitative < 0.017 ng/mL (0.000-0.055) < 0.017 ng/mL (0.000-0.055) 0.019 ng/mL (0.000-0.055) Total Protein 7.5 g/dL (6.4-8.2) 6.8 g/dL (6.4-8.2) Albumin 3.9 g/dL (3.4-5.0) 3.4 g/dL (3.4-5.0) Albumin/Globulin Ratio 1.1 (1.0-1.7) 1.0 (1.0-1.7) Glucose (Fingerstick) 145 mg/dL (70-99) Test 12/02/18 07:12 12/02/18 09:35 Glucose (Fingerstick) 99 mg/dL (70-99) Potassium Level 5.1 mmol/L (3.5-5.1) Troponin I Quantitative < 0.017 ng/mL (0.000-0.055) Triglycerides Level 136 mg/dL (0-150) Cholesterol Level 95 mg/dL (0-200) LDL Cholesterol, Calculated 31 mg/dL (0-100) VLDL Cholesterol, Calculated 27 mg/dL (0-40) Non-HDL Cholesterol Calculated 58 mg/dL (0-129) HDL Cholesterol 37 mg/dL (40-60) Cholesterol/HDL Ratio 2.6 Thyroid Stimulating Hormone (TSH) 2.202 uIU/mL (0.358-3.74) Review of Systems Review of Systems Fatigued, weak, the rest of ROS 14 point negative, denies SOA, denies chest pain Assessment and Plan Assessmemt and Plan Problems Medical Problems: (1) Chest pain Status: Acute Comment Review of Relevant I have reviewed the following items shine (where applicable) has been applied. Labs Laboratory Tests Test 12/01/18 17:00 12/01/18 21:11 12/01/18 22:15 12/02/18 01:25 White Blood Count 5.3 x10^3/uL (4.0-11.0) 4.8 x10^3/uL (4.0-11.0) Red Blood Count 3.36 x10^6/uL (3.50-5.40) 3.22 x10^6/uL (3.50-5.40) Hemoglobin 10.5 g/dL (12.0-15.5) 9.8 g/dL (12.0-15.5) Hematocrit 30.3 % (36.0-47.0) 29.0 % (36.0-47.0) Mean Corpuscular Volume 90 fL (79-100) 90 fL (79-100) Mean Corpuscular Hemoglobin 31 pg (25-35) 30 pg (25-35) Mean Corpuscular Hemoglobin Concent 35 g/dL (31-37) 34 g/dL (31-37) Red Cell Distribution Width 15.1 % (11.5-14.5) 14.5 % (11.5-14.5) Platelet Count 224 x10^3/uL (140-400) 202 x10^3/uL (140-400) Neutrophils (%) (Auto) 70 % (31-73) 58 % (31-73) Lymphocytes (%) (Auto) 20 % (24-48) 29 % (24-48) Monocytes (%) (Auto) 7 % (0-9) 9 % (0-9) Eosinophils (%) (Auto) 3 % (0-3) 3 % (0-3) Basophils (%) (Auto) 1 % (0-3) 1 % (0-3) Neutrophils # (Auto) 3.7 x10^3uL (1.8-7.7) 2.8 x10^3uL (1.8-7.7) Lymphocytes # (Auto) 1.1 x10^3/uL (1.0-4.8) 1.4 x10^3/uL (1.0-4.8) Monocytes # (Auto) 0.3 x10^3/uL (0.0-1.1) 0.4 x10^3/uL (0.0-1.1) Eosinophils # (Auto) 0.2 x10^3/uL (0.0-0.7) 0.2 x10^3/uL (0.0-0.7) Basophils # (Auto) 0.0 x10^3/uL (0.0-0.2) 0.0 x10^3/uL (0.0-0.2) D-Dimer (Rosa M) 0.37 ug/mlFEU (0.00-0.50) Sodium Level 141 mmol/L (136-145) 142 mmol/L (136-145) Potassium Level 4.8 mmol/L (3.5-5.1) 5.2 mmol/L (3.5-5.1) Chloride Level 102 mmol/L (98-107) 104 mmol/L (98-107) Carbon Dioxide Level 31 mmol/L (21-32) 29 mmol/L (21-32) Anion Gap 8 (6-14) 9 (6-14) Blood Urea Nitrogen 36 mg/dL (7-20) 42 mg/dL (7-20) Creatinine 4.9 mg/dL (0.6-1.0) 6.1 mg/dL (0.6-1.0) Estimated GFR (Cockcroft-Gault) 8.9 6.9 BUN/Creatinine Ratio 7 (6-20) 7 (6-20) Glucose Level 182 mg/dL (70-99) 94 mg/dL (70-99) Calcium Level 9.2 mg/dL (8.5-10.1) 8.9 mg/dL (8.5-10.1) Magnesium Level 2.3 mg/dL (1.8-2.4) Total Bilirubin 0.3 mg/dL (0.2-1.0) 0.3 mg/dL (0.2-1.0) Aspartate Amino Transf (AST/SGOT) 19 U/L (15-37) 13 U/L (15-37) Alanine Aminotransferase (ALT/SGPT) 29 U/L (14-59) 24 U/L (14-59) Alkaline Phosphatase 65 U/L (46-116) 57 U/L (46-116) Troponin I Quantitative < 0.017 ng/mL (0.000-0.055) < 0.017 ng/mL (0.000-0.055) 0.019 ng/mL (0.000-0.055) Total Protein 7.5 g/dL (6.4-8.2) 6.8 g/dL (6.4-8.2) Albumin 3.9 g/dL (3.4-5.0) 3.4 g/dL (3.4-5.0) Albumin/Globulin Ratio 1.1 (1.0-1.7) 1.0 (1.0-1.7) Glucose (Fingerstick) 145 mg/dL (70-99) Test 12/02/18 07:12 12/02/18 09:35 Glucose (Fingerstick) 99 mg/dL (70-99) Potassium Level 5.1 mmol/L (3.5-5.1) Troponin I Quantitative < 0.017 ng/mL (0.000-0.055) Triglycerides Level 136 mg/dL (0-150) Cholesterol Level 95 mg/dL (0-200) LDL Cholesterol, Calculated 31 mg/dL (0-100) VLDL Cholesterol, Calculated 27 mg/dL (0-40) Non-HDL Cholesterol Calculated 58 mg/dL (0-129) HDL Cholesterol 37 mg/dL (40-60) Cholesterol/HDL Ratio 2.6 Thyroid Stimulating Hormone (TSH) 2.202 uIU/mL (0.358-3.74) Laboratory Tests Test 12/01/18 17:00 12/01/18 21:11 12/01/18 22:15 12/02/18 01:25 White Blood Count 5.3 x10^3/uL (4.0-11.0) 4.8 x10^3/uL (4.0-11.0) Red Blood Count 3.36 x10^6/uL (3.50-5.40) 3.22 x10^6/uL (3.50-5.40) Hemoglobin 10.5 g/dL (12.0-15.5) 9.8 g/dL (12.0-15.5) Hematocrit 30.3 % (36.0-47.0) 29.0 % (36.0-47.0) Mean Corpuscular Volume 90 fL (79-100) 90 fL (79-100) Mean Corpuscular Hemoglobin 31 pg (25-35) 30 pg (25-35) Mean Corpuscular Hemoglobin Concent 35 g/dL (31-37) 34 g/dL (31-37) Red Cell Distribution Width 15.1 % (11.5-14.5) 14.5 % (11.5-14.5) Platelet Count 224 x10^3/uL (140-400) 202 x10^3/uL (140-400) Neutrophils (%) (Auto) 70 % (31-73) 58 % (31-73) Lymphocytes (%) (Auto) 20 % (24-48) 29 % (24-48) Monocytes (%) (Auto) 7 % (0-9) 9 % (0-9) Eosinophils (%) (Auto) 3 % (0-3) 3 % (0-3) Basophils (%) (Auto) 1 % (0-3) 1 % (0-3) Neutrophils # (Auto) 3.7 x10^3uL (1.8-7.7) 2.8 x10^3uL (1.8-7.7) Lymphocytes # (Auto) 1.1 x10^3/uL (1.0-4.8) 1.4 x10^3/uL (1.0-4.8) Monocytes # (Auto) 0.3 x10^3/uL (0.0-1.1) 0.4 x10^3/uL (0.0-1.1) Eosinophils # (Auto) 0.2 x10^3/uL (0.0-0.7) 0.2 x10^3/uL (0.0-0.7) Basophils # (Auto) 0.0 x10^3/uL (0.0-0.2) 0.0 x10^3/uL (0.0-0.2) D-Dimer (Rosa M) 0.37 ug/mlFEU (0.00-0.50) Sodium Level 141 mmol/L (136-145) 142 mmol/L (136-145) Potassium Level 4.8 mmol/L (3.5-5.1) 5.2 mmol/L (3.5-5.1) Chloride Level 102 mmol/L (98-107) 104 mmol/L (98-107) Carbon Dioxide Level 31 mmol/L (21-32) 29 mmol/L (21-32) Anion Gap 8 (6-14) 9 (6-14) Blood Urea Nitrogen 36 mg/dL (7-20) 42 mg/dL (7-20) Creatinine 4.9 mg/dL (0.6-1.0) 6.1 mg/dL (0.6-1.0) Estimated GFR (Cockcroft-Gault) 8.9 6.9 BUN/Creatinine Ratio 7 (6-20) 7 (6-20) Glucose Level 182 mg/dL (70-99) 94 mg/dL (70-99) Calcium Level 9.2 mg/dL (8.5-10.1) 8.9 mg/dL (8.5-10.1) Magnesium Level 2.3 mg/dL (1.8-2.4) Total Bilirubin 0.3 mg/dL (0.2-1.0) 0.3 mg/dL (0.2-1.0) Aspartate Amino Transf (AST/SGOT) 19 U/L (15-37) 13 U/L (15-37) Alanine Aminotransferase (ALT/SGPT) 29 U/L (14-59) 24 U/L (14-59) Alkaline Phosphatase 65 U/L (46-116) 57 U/L (46-116) Troponin I Quantitative < 0.017 ng/mL (0.000-0.055) < 0.017 ng/mL (0.000-0.055) 0.019 ng/mL (0.000-0.055) Total Protein 7.5 g/dL (6.4-8.2) 6.8 g/dL (6.4-8.2) Albumin 3.9 g/dL (3.4-5.0) 3.4 g/dL (3.4-5.0) Albumin/Globulin Ratio 1.1 (1.0-1.7) 1.0 (1.0-1.7) Glucose (Fingerstick) 145 mg/dL (70-99) Test 12/02/18 07:12 12/02/18 09:35 Glucose (Fingerstick) 99 mg/dL (70-99) Potassium Level 5.1 mmol/L (3.5-5.1) Troponin I Quantitative < 0.017 ng/mL (0.000-0.055) Triglycerides Level 136 mg/dL (0-150) Cholesterol Level 95 mg/dL (0-200) LDL Cholesterol, Calculated 31 mg/dL (0-100) VLDL Cholesterol, Calculated 27 mg/dL (0-40) Non-HDL Cholesterol Calculated 58 mg/dL (0-129) HDL Cholesterol 37 mg/dL (40-60) Cholesterol/HDL Ratio 2.6 Thyroid Stimulating Hormone (TSH) 2.202 uIU/mL (0.358-3.74) Medications Current Medications Fentanyl Citrate (Fentanyl 2ml Vial) 25 mcg 1X ONCE IV Last administered on at 18:03; Start 12/01/18 at 18:00; Stop 12/01/18 at 18:01; Status DC Ondansetron HCl (Zofran) 4 mg PRN Q8HRS PRN IV NAUSEA/VOMITING; Start 12/01/18 at 19:30; Stop 12/02/18 at 08:55; Status DC Fentanyl Citrate (Fentanyl 2ml Vial) 25 mcg PRN Q3HRS PRN IV PAIN Last administered on 12/01/18at 22:45; Start 12/01/18 at 19:30; Stop 12/02/18 at 19:29 Hydralazine HCl (Apresoline Inj) 10 mg PRN Q4HRS PRN IVP ELEVATED BP, SEE COMMENTS; Start 12/02/18 at 08:15 Ondansetron HCl (Zofran) 4 mg PRN Q6HRS PRN IV NAUSEA/VOMITING; Start 12/02/18 at 09:00 Acetaminophen (Tylenol) 500 mg PRN Q6HRS PRN PO MILD PAIN / TEMP; Start 12/02/18 at 09:00 Acetaminophen/ Codeine Phosphate (Tylenol #3) 1 tab PRN Q6HRS PRN PO PAIN Last administered on 12/02/18at 11:36; Start 12/02/18 at 09:00 Amlodipine Besylate (Norvasc) 10 mg DAILY PO ; Start 12/02/18 at 09:00 Aspirin (Ecotrin) 81 mg DAILY PO Last administered on 12/02/18at 11:36; Start 12/02/18 at 09:00 Clopidogrel Bisulfate (Plavix) 75 mg DAILY PO Last administered on 12/02/18at 11:36; Start 12/02/18 at 09:00 Losartan Potassium (Cozaar) 50 mg BID PO ; Start 12/02/18 at 09:00 Sevelamer Carbonate (Renvela) 2,400 mg TID PO ; Start 12/02/18 at 09:00; Stop 12/02/18 at 11:30; Status DC Sodium Bicarbonate (Sodium Bicarbonate) 1,300 mg BID PO Last administered on 12/02/18at 11:36; Start 12/02/18 at 09:00 Carvedilol (Coreg) 25 mg BIDWMEALS PO ; Start 12/02/18 at 09:00; Stop 12/02/18 at 10:08; Status DC Atorvastatin Calcium (Lipitor) 40 mg QHS PO ; Start 12/02/18 at 21:00 Sertraline HCl (Zoloft) 25 mg DAILY PO Last administered on 12/02/18at 11:36; Start 12/02/18 at 09:00 Carvedilol (Coreg) 12.5 mg BIDWMEALS PO ; Start 12/02/18 at 17:00 Isosorbide Mononitrate (Imdur) 60 mg DAILY PO ; Start 12/03/18 at 09:00 Sevelamer Carbonate (Renvela) 2,400 mg TIDWMEALS PO ; Start 12/02/18 at 12:00 Active Scripts Active Reported Loperamide (Loperamide Hcl) 2 Mg Capsule 2 Mg PO PRN Sodium Bicarbonate 650 Mg Tablet 2 Tab PO BID Renvela (Sevelamer Carbonate) 800 Mg Tablet 3 Tab PO TID Zoloft (Sertraline Hcl) 25 Mg Tablet 1 Tab PO DAILY Crestor (Rosuvastatin Calcium) 10 Mg Tablet 10 Mg PO HS Losartan Potassium 50 Mg Tablet 50 Mg PO BID Clopidogrel (Clopidogrel Bisulfate) 75 Mg Tablet 1 Tab PO DAILY Carvedilol 25 Mg Tablet 25 Mg PO BIDWMEALS Aspir-Low (Aspirin) 81 Mg Tablet. 1 Tab PO DAILY Amlodipine Besylate 10 Mg Tablet 10 Mg PO DAILY Vitals/I & O Vital Sign - Last 24 Hours 12/01/18 12/01/18 12/01/18 12/01/18 16:43 17:00 17:30 18:00 Temp 97.7 97.7 Pulse 48 54 49 50 Resp 16 18 18 18 B/P (MAP) 139/61 (87) 168/78 (108) 171/82 (111) 161/84 (109) Pulse Ox 96 99 100 100 O2 Delivery Room Air Room Air Room Air Room Air 12/01/18 12/01/18 12/01/18 12/01/18 18:30 19:00 19:30 19:50 Temp 98.8 98.8 Pulse 49 47 51 50 Resp 18 16 16 16 B/P (MAP) 162/81 (108) 158/79 (105) 172/82 (112) 165/49 (87) Pulse Ox 100 100 100 97 O2 Delivery Room Air Room Air Room Air Room Air 12/01/18 12/01/18 12/01/18 12/01/18 20:00 22:34 22:45 23:15 Temp 98.8 98.8 Pulse 51 Resp 16 18 16 B/P (MAP) 187/78 (114) Pulse Ox 95 95 95 O2 Delivery Room Air Room Air Room Air Room Air 12/02/18 12/02/18 12/02/18 12/02/18 02:19 07:00 08:30 11:36 Temp 98.3 98.5 98.3 98.5 Pulse 50 52 Resp 16 14 B/P (MAP) 167/72 (103) 182/60 (100) Pulse Ox 96 90 O2 Delivery Room Air Room Air Room Air Room Air Intake and Output 12/01/18 12/01/18 12/02/18 14:59 22:59 06:59 Intake Total 0 ml Balance 0 ml DAHLIA KURTZ MD Dec 02, 2018 11:47
[2018-12-02] MEDS: SEVELAMER CARBONATE 800 MG TABLET. PO SCH ×2 (12:00→16:55)
--- NOTE | 2018-12-02 12:00 | CARD ---
MR#: [id number] Date of Study: 12/02/2018 Ordering Physician: JARRETT SALDANA, Referring Physician: MAYRA PLEITEZ Tech: Beba Hsiehestellagaviota APPROVED REPORT EXAM: Two-dimensional and M-mode echocardiogram with Doppler and color Doppler. Other Information Quality : AverageHR: 50bpm INDICATION Chest Pain RISK FACTORS Hypertension 2D DIMENSIONS RVDd2.9 (2.9-3.5cm)Left Atrium(2D)3.4 (1.6-4.0cm) IVSd1.4 (0.7-1.1cm)Aortic Root(2D)3.2 (2.0-3.7cm) LVDd5.1 (3.9-5.9cm)LVOT Diameter2.1 (1.8-2.4cm) PWd1.1 (0.7-1.1cm)LVDs3.6 (2.5-4.0cm) FS (%) 29.1 %SV69.6 ml LVEF(%)55.5 (>50%) Aortic Valve AoV Peak Ferdinand.165.9cm/sAoV VTI45.1cm AO Peak GR.11.0mmHgLVOT VTI 21.92cm AO Mean GR.6mmHgAI P 1/2 [id number] Mitral Valve MV E Ifqitwqx155.7cm/sMV E Peak Gr.112mmHg MV DECEL [id number] Uisjxbwr471.7cm/s MV E Mean Gr.3mmHgE/A Ratio0.9 TDI Lateral E' P. V5.47cm/sMedial E' P. V9.91cm/s E/Lateral E'18.6E/Medial E'10.3 Tricuspid Valve TR P. Rqvuzwtb080df/sRAP [id number] TR Peak Gr.[id number] Pulmonary Vein S1 Rreeczhn19.5cm/sS2 Hskskwjz10.21cm/s D2 Uoxsdqdh96.2cm/sPVa [id number] LEFT VENTRICLE The left ventricle is normal size. There is mild to moderate concentric left ventricular hypertrophy. The left ventricular systolic function is normal. The Ejection Fraction is 55-60%. There is normal L V segmental wall motion. Transmitral Doppler flow pattern is Grade I-abnormal relaxation pattern. RIGHT VENTRICLE The right ventricle is normal size. There is normal right ventricular wall thickness. The right ventr icular systolic function is normal. ATRIA The left atrium size is normal. The right atrium size is normal. The interatrial septum is intact wit h no evidence for an atrial septal defect or patent foramen ovale as noted on 2-D or Doppler imaging. AORTIC VALVE The aortic valve is thickened but opens well. Doppler and Color Flow revealed mild aortic regurgitati on. There is no significant aortic valvular stenosis. MITRAL VALVE The mitral valve is thickened but opens well. There is no evidence of mitral valve prolapse. There is no mitral valve stenosis. Doppler and Color-flow revealed trace to mild mitral regurgitation. TRICUSPID VALVE The tricuspid valve is normal in structure and function. Doppler and Color Flow revealed trace tricus pid regurgitation with an estimated PAP of 37 mmHg. There is no tricuspid valve stenosis. PULMONIC VALVE The pulmonary valve is normal in structure and function. Doppler and Color Flow revealed trace pulmon ic valvular regurgitation. GREAT VESSELS The aortic root is normal in size. The IVC is normal in size and collapses >50% with inspiration. PERICARDIAL EFFUSION There is no evidence of significant pericardial effusion. Critical Notification Critical Value: No <Conclusion> The left ventricular systolic function is normal. The Ejection Fraction is 55-60%. There is normal LV segmental wall motion. Transmitral Doppler flow pattern is Grade I-abnormal relaxation pattern. Mild aortic regurgitation. Trace to mild mitral regurgitation. Trace tricuspid regurgitation with an estimated PAP of 37 mmHg. There is no evidence of significant pericardial effusion. Signed by : Kannan Landeros, Electronically Approved : 12/02/2018 12:00:12
--- NOTE | 2018-12-02 12:18 | NUR ---
SS following for discharge planning. SS reviewed pt chart. Pt is from [facility], , and is currently on room air. Pt has had previous services in the past with [facility]. SS will continue to follow for discharge planning.
--- NOTE | 2018-12-02 15:08 | PDOC2 ---
CONSULT Date of Consult Date of Consult DATE: 12/02/18 TIME: 15:01 Reason for Consult Reason for Consult: ESRD Identification/Chief Complaint Chief Complaint Doesnt speak Korean Source Source: Chart review History of Present Illness Reason for Visit: Hx Obtained from Chart review Pt is 68 yo Khmer female admitted for complains of chest pain. She is ESRD on HD her symptoms started at the end of her dialysis. She started getting mid chest pressure that radiated to both shoulders and also with some SOA and felt clammy but nausea or palpitations. This lasted 15 minutes with no recurrence. Denies any prior exertional CP nor GODINEZ in the recent weeks. No falls, injury and no recent heavy lifting. Had PCI/stents which was done at [facility] probably a yr ago. She has been on dialysis for over a yr due to her DM and HTN. Past Medical History Cardiovascular: CAD, HTN, Hyperlipidemia Pulmonary: No pertinent hx CENTRAL NERVOUS SYSTEM: Other (No pertinent history) GI: No pertinent hx Heme/Onc: Anemia NOS Hepatobiliary: No pertinent hx Psych: No pertinent hx Musculoskeletal: low back pain Rheumatologic: No pertinent hx Infectious disease: No pertinent hx ENT: No pertinent hx Renal/: Chronic renal failure Endocrine: Diabetes Past Surgical History Past Surgical History: Other (LA AV dialysis fistula; PCI/stents) Family History Family History: Hypertension Social History No ALCOHOL: none Drugs: None Lives: with Family Current Problem List Problem List Problems Medical Problems: (1) Chest pain Status: Acute Current Medications Current Medications Current Medications Fentanyl Citrate (Fentanyl 2ml Vial) 25 mcg 1X ONCE IV Last administered on 12/01/18at 18:03; Start 12/01/18 at 18:00; Stop 12/01/18 at 18:01; Status DC Ondansetron HCl (Zofran) 4 mg PRN Q8HRS PRN IV NAUSEA/VOMITING; Start 12/01/18 at 19:30; Stop 12/02/18 at 08:55; Status DC Fentanyl Citrate (Fentanyl 2ml Vial) 25 mcg PRN Q3HRS PRN IV PAIN Last administered on 12/01/18at 22:45; Start 12/01/18 at 19:30; Stop 12/02/18 at 19:29 Hydralazine HCl (Apresoline Inj) 10 mg PRN Q4HRS PRN IVP ELEVATED BP, SEE COMMENTS; Start 12/02/18 at 08:15 Ondansetron HCl (Zofran) 4 mg PRN Q6HRS PRN IV NAUSEA/VOMITING; Start 12/02/18 at 09:00 Acetaminophen (Tylenol) 500 mg PRN Q6HRS PRN PO MILD PAIN / TEMP; Start 12/02/18 at 09:00 Acetaminophen/ Codeine Phosphate (Tylenol #3) 1 tab PRN Q6HRS PRN PO PAIN Last administered on 12/02/18at 11:36; Start 12/02/18 at 09:00 Amlodipine Besylate (Norvasc) 10 mg DAILY PO ; Start 12/02/18 at 09:00 Aspirin (Ecotrin) 81 mg DAILY PO Last administered on 12/02/18at 11:36; Start 12/02/18 at 09:00 Clopidogrel Bisulfate (Plavix) 75 mg DAILY PO Last administered on 12/02/18at 11:36; Start 12/02/18 at 09:00 Losartan Potassium (Cozaar) 50 mg BID PO ; Start 12/02/18 at 09:00 Sevelamer Carbonate (Renvela) 2,400 mg TID PO ; Start 12/02/18 at 09:00; Stop 12/02/18 at 11:30; Status DC Sodium Bicarbonate (Sodium Bicarbonate) 1,300 mg BID PO Last administered on 12/02/18at 11:36; Start 12/02/18 at 09:00 Carvedilol (Coreg) 25 mg BIDWMEALS PO ; Start 12/02/18 at 09:00; Stop 12/02/18 at 10:08; Status DC Atorvastatin Calcium (Lipitor) 40 mg QHS PO ; Start 12/02/18 at 21:00 Sertraline HCl (Zoloft) 25 mg DAILY PO Last administered on 12/02/18at 11:36; Start 12/02/18 at 09:00 Carvedilol (Coreg) 12.5 mg BIDWMEALS PO ; Start 12/02/18 at 17:00 Isosorbide Mononitrate (Imdur) 60 mg DAILY PO ; Start 12/03/18 at 09:00 Sevelamer Carbonate (Renvela) 2,400 mg TIDWMEALS PO ; Start 12/02/18 at 12:00 Active Scripts Active Reported Loperamide (Loperamide Hcl) 2 Mg Capsule 2 Mg PO PRN Sodium Bicarbonate 650 Mg Tablet 2 Tab PO BID Renvela (Sevelamer Carbonate) 800 Mg Tablet 3 Tab PO TID Zoloft (Sertraline Hcl) 25 Mg Tablet 1 Tab PO DAILY Crestor (Rosuvastatin Calcium) 10 Mg Tablet 10 Mg PO HS Losartan Potassium 50 Mg Tablet 50 Mg PO BID Clopidogrel (Clopidogrel Bisulfate) 75 Mg Tablet 1 Tab PO DAILY Carvedilol 25 Mg Tablet 25 Mg PO BIDWMEALS Aspir-Low (Aspirin) 81 Mg Tablet.dr 1 Tab PO DAILY Amlodipine Besylate 10 Mg Tablet 10 Mg PO DAILY Allergies Allergies: Coded Allergies: No Known Drug Allergies (Unverified , 10/01/18) ROS Review of System Per HPI Physical Exam Physical Exam General: No acute distress HEENT: Mucous membr. moist/pink Lungs: Clear to auscultation, Normal air movement Heart: Regular rate Normal S1, Normal S2, 3/6 systolic murmur Abdomen: Soft, No tenderness Extremities: No edema Skin: No significant lesion Neuro: Normal speech, Sensation intact Psych/Mental Status: Mental status NL, Other (flat affect) -No Thakkar Vital Signs Vital Signs Date Time Temp Pulse Resp B/P (MAP) Pulse Ox O2 Delivery O2 Flow Rate FiO2 12/02/18 11:36 Room Air 12/02/18 11:00 98.9 52 12 169/58 (95) 94 98.9 Assessment & Plan ESRD- Per previous Hospitalization note On HD TTS Seen on HD , Tolerating well, Continue as ordered Dw Ward Secretary Chest pain: trops nml, Cardiology following HTN: labile episodes DM2- Per PRIMARY CAD: PCI/stents at [facility] about a yr ago peer pt. Labs Labs Laboratory Tests Test 12/01/18 17:00 12/01/18 21:11 12/01/18 22:15 12/02/18 01:25 White Blood Count 5.3 x10^3/uL (4.0-11.0) 4.8 x10^3/uL (4.0-11.0) Red Blood Count 3.36 x10^6/uL (3.50-5.40) 3.22 x10^6/uL (3.50-5.40) Hemoglobin 10.5 g/dL (12.0-15.5) 9.8 g/dL (12.0-15.5) Hematocrit 30.3 % (36.0-47.0) 29.0 % (36.0-47.0) Mean Corpuscular Volume 90 fL (79-100) 90 fL (79-100) Mean Corpuscular Hemoglobin 31 pg (25-35) 30 pg (25-35) Mean Corpuscular Hemoglobin Concent 35 g/dL (31-37) 34 g/dL (31-37) Red Cell Distribution Width 15.1 % (11.5-14.5) 14.5 % (11.5-14.5) Platelet Count 224 x10^3/uL (140-400) 202 x10^3/uL (140-400) Neutrophils (%) (Auto) 70 % (31-73) 58 % (31-73) Lymphocytes (%) (Auto) 20 % (24-48) 29 % (24-48) Monocytes (%) (Auto) 7 % (0-9) 9 % (0-9) Eosinophils (%) (Auto) 3 % (0-3) 3 % (0-3) Basophils (%) (Auto) 1 % (0-3) 1 % (0-3) Neutrophils # (Auto) 3.7 x10^3uL (1.8-7.7) 2.8 x10^3uL (1.8-7.7) Lymphocytes # (Auto) 1.1 x10^3/uL (1.0-4.8) 1.4 x10^3/uL (1.0-4.8) Monocytes # (Auto) 0.3 x10^3/uL (0.0-1.1) 0.4 x10^3/uL (0.0-1.1) Eosinophils # (Auto) 0.2 x10^3/uL (0.0-0.7) 0.2 x10^3/uL (0.0-0.7) Basophils # (Auto) 0.0 x10^3/uL (0.0-0.2) 0.0 x10^3/uL (0.0-0.2) D-Dimer (Rosa M) 0.37 ug/mlFEU (0.00-0.50) Sodium Level 141 mmol/L (136-145) 142 mmol/L (136-145) Potassium Level 4.8 mmol/L (3.5-5.1) 5.2 mmol/L (3.5-5.1) Chloride Level 102 mmol/L (98-107) 104 mmol/L (98-107) Carbon Dioxide Level 31 mmol/L (21-32) 29 mmol/L (21-32) Anion Gap 8 (6-14) 9 (6-14) Blood Urea Nitrogen 36 mg/dL (7-20) 42 mg/dL (7-20) Creatinine 4.9 mg/dL (0.6-1.0) 6.1 mg/dL (0.6-1.0) Estimated GFR (Cockcroft-Gault) 8.9 6.9 BUN/Creatinine Ratio 7 (6-20) 7 (6-20) Glucose Level 182 mg/dL (70-99) 94 mg/dL (70-99) Calcium Level 9.2 mg/dL (8.5-10.1) 8.9 mg/dL (8.5-10.1) Magnesium Level 2.3 mg/dL (1.8-2.4) Total Bilirubin 0.3 mg/dL (0.2-1.0) 0.3 mg/dL (0.2-1.0) Aspartate Amino Transf (AST/SGOT) 19 U/L (15-37) 13 U/L (15-37) Alanine Aminotransferase (ALT/SGPT) 29 U/L (14-59) 24 U/L (14-59) Alkaline Phosphatase 65 U/L (46-116) 57 U/L (46-116) Troponin I Quantitative < 0.017 ng/mL (0.000-0.055) < 0.017 ng/mL (0.000-0.055) 0.019 ng/mL (0.000-0.055) Total Protein 7.5 g/dL (6.4-8.2) 6.8 g/dL (6.4-8.2) Albumin 3.9 g/dL (3.4-5.0) 3.4 g/dL (3.4-5.0) Albumin/Globulin Ratio 1.1 (1.0-1.7) 1.0 (1.0-1.7) Glucose (Fingerstick) 145 mg/dL (70-99) Test 12/02/18 07:12 12/02/18 09:35 12/02/18 11:52 Glucose (Fingerstick) 99 mg/dL (70-99) 92 mg/dL (70-99) Potassium Level 5.1 mmol/L (3.5-5.1) Troponin I Quantitative < 0.017 ng/mL (0.000-0.055) Triglycerides Level 136 mg/dL (0-150) Cholesterol Level 95 mg/dL (0-200) LDL Cholesterol, Calculated 31 mg/dL (0-100) VLDL Cholesterol, Calculated 27 mg/dL (0-40) Non-HDL Cholesterol Calculated 58 mg/dL (0-129) HDL Cholesterol 37 mg/dL (40-60) Cholesterol/HDL Ratio 2.6 Thyroid Stimulating Hormone (TSH) 2.202 uIU/mL (0.358-3.74) Laboratory Tests Test 12/01/18 17:00 12/01/18 21:11 12/01/18 22:15 12/02/18 01:25 White Blood Count 5.3 x10^3/uL (4.0-11.0) 4.8 x10^3/uL (4.0-11.0) Red Blood Count 3.36 x10^6/uL (3.50-5.40) 3.22 x10^6/uL (3.50-5.40) Hemoglobin 10.5 g/dL (12.0-15.5) 9.8 g/dL (12.0-15.5) Hematocrit 30.3 % (36.0-47.0) 29.0 % (36.0-47.0) Mean Corpuscular Volume 90 fL (79-100) 90 fL (79-100) Mean Corpuscular Hemoglobin 31 pg (25-35) 30 pg (25-35) Mean Corpuscular Hemoglobin Concent 35 g/dL (31-37) 34 g/dL (31-37) Red Cell Distribution Width 15.1 % (11.5-14.5) 14.5 % (11.5-14.5) Platelet Count 224 x10^3/uL (140-400) 202 x10^3/uL (140-400) Neutrophils (%) (Auto) 70 % (31-73) 58 % (31-73) Lymphocytes (%) (Auto) 20 % (24-48) 29 % (24-48) Monocytes (%) (Auto) 7 % (0-9) 9 % (0-9) Eosinophils (%) (Auto) 3 % (0-3) 3 % (0-3) Basophils (%) (Auto) 1 % (0-3) 1 % (0-3) Neutrophils # (Auto) 3.7 x10^3uL (1.8-7.7) 2.8 x10^3uL (1.8-7.7) Lymphocytes # (Auto) 1.1 x10^3/uL (1.0-4.8) 1.4 x10^3/uL (1.0-4.8) Monocytes # (Auto) 0.3 x10^3/uL (0.0-1.1) 0.4 x10^3/uL (0.0-1.1) Eosinophils # (Auto) 0.2 x10^3/uL (0.0-0.7) 0.2 x10^3/uL (0.0-0.7) Basophils # (Auto) 0.0 x10^3/uL (0.0-0.2) 0.0 x10^3/uL (0.0-0.2) D-Dimer (Rosa M) 0.37 ug/mlFEU (0.00-0.50) Sodium Level 141 mmol/L (136-145) 142 mmol/L (136-145) Potassium Level 4.8 mmol/L (3.5-5.1) 5.2 mmol/L (3.5-5.1) Chloride Level 102 mmol/L (98-107) 104 mmol/L (98-107) Carbon Dioxide Level 31 mmol/L (21-32) 29 mmol/L (21-32) Anion Gap 8 (6-14) 9 (6-14) Blood Urea Nitrogen 36 mg/dL (7-20) 42 mg/dL (7-20) Creatinine 4.9 mg/dL (0.6-1.0) 6.1 mg/dL (0.6-1.0) Estimated GFR (Cockcroft-Gault) 8.9 6.9 BUN/Creatinine Ratio 7 (6-20) 7 (-20) Glucose Level 182 mg/dL (70-99) 94 mg/dL (70-99) Calcium Level 9.2 mg/dL (8.5-10.1) 8.9 mg/dL (8.5-10.1) Magnesium Level 2.3 mg/dL (1.8-2.4) Total Bilirubin 0.3 mg/dL (0.2-1.0) 0.3 mg/dL (0.2-1.0) Aspartate Amino Transf (AST/SGOT) 19 U/L (15-37) 13 U/L (15-37) Alanine Aminotransferase (ALT/SGPT) 29 U/L (14-59) 24 U/L (14-59) Alkaline Phosphatase 65 U/L (46-116) 57 U/L (46-116) Troponin I Quantitative < 0.017 ng/mL (0.000-0.055) < 0.017 ng/mL (0.000-0.055) 0.019 ng/mL (0.000-0.055) Total Protein 7.5 g/dL (6.4-8.2) 6.8 g/dL (6.4-8.2) Albumin 3.9 g/dL (3.4-5.0) 3.4 g/dL (3.4-5.0) Albumin/Globulin Ratio 1.1 (1.0-1.7) 1.0 (1.0-1.7) Glucose (Fingerstick) 145 mg/dL (70-99) Test 12/02/18 07:12 12/02/18 09:35 12/02/18 11:52 Glucose (Fingerstick) 99 mg/dL (70-99) 92 mg/dL (70-99) Potassium Level 5.1 mmol/L (3.5-5.1) Troponin I Quantitative < 0.017 ng/mL (0.000-0.055) Triglycerides Level 136 mg/dL (0-150) Cholesterol Level 95 mg/dL (0-200) LDL Cholesterol, Calculated 31 mg/dL (0-100) VLDL Cholesterol, Calculated 27 mg/dL (0-40) Non-HDL Cholesterol Calculated 58 mg/dL (0-129) HDL Cholesterol 37 mg/dL (40-60) Cholesterol/HDL Ratio 2.6 Thyroid Stimulating Hormone (TSH) 2.202 uIU/mL (0.358-3.74) Review All relevant outside records, renal labs, imaging studies, telemetry/EKG's were reviewed. Images Images 1. There is again enlargement of the pericardial cardiac silhouette. MARCEL TAN MD Dec 02, 2018 15:08
[2018-12-02 15:30] VITALS: BP 111/57
[2018-12-02] MEDS: CARVEDILOL 12.5 MG TABLET. PO SCH (16:53)
[2018-12-02 19:20] VITALS: BP 164/50
--- NOTE | 2018-12-02 20:00 | NUR ---
Assessment completed using costume technician phone with four slide operator [id number]. Patient allowed to address her concerns/questions with costume technician for me.
--- NOTE | 2018-12-02 20:08 | NUR ---
Dr. Baptiste at bedside and utilized interpreter deaf phone with capacitor pack press operator [id number] informed patient of test/lab results and plan of care. Patient allowed to ask questions through interpreter deaf to .
[2018-12-02] MEDS ORDERED: ATORVASTATIN CALCIUM 40 MG TABLET. PO SCH (21:00)
[2018-12-02 23:28] VITALS: BP 186/77
[2018-12-02] MEDS: hydrALAZINE 20 MG/ML VIAL. IVP PRN (23:40)
[2018-12-03 00:04] VITALS: BP 167/72
[2018-12-03 03:20] VITALS: BP 196/75
[2018-12-03] MEDS: hydrALAZINE 20 MG/ML VIAL. IVP PRN (04:28)
[2018-12-03 07:00] VITALS: BP 151/65
[2018-12-03] MEDS: SODIUM BICARBONATE 650 MG TABLET. PO SCH (08:26)
[2018-12-03] MEDS: ASPIRIN ENTERIC COATED 81 MG TABLET.DR. PO SCH (08:26)
[2018-12-03] MEDS: SEVELAMER CARBONATE 800 MG TABLET. PO SCH ×2 (08:26→12:00)
[2018-12-03] MEDS: SERTRALINE 25 MG TABLET. PO SCH (08:27)
[2018-12-03] MEDS: ACETAMINOPHEN/CODEINE 300/30MG TABLET. PO PRN (08:27)
[2018-12-03] MEDS: LOSARTAN POTASSIUM 50 MG TABLET. PO SCH (08:28)
[2018-12-03] MEDS: CLOPIDOGREL BISULFATE 75 MG TABLET PO SCH (08:28)
[2018-12-03] MEDS: CARVEDILOL 12.5 MG TABLET. PO SCH (08:28)
[2018-12-03] MEDS: amLODIPine BESYLATE 10 MG TABLET PO SCH (08:29)
[2018-12-03] MEDS ORDERED: ISOSORBIDE MONONITRATE ER 30 MG TAB.ER.24H PO SCH (09:00)
[2018-12-03] MEDS ORDERED: HYDR-2869 PO (10:50)
[2018-12-03] MEDS ORDERED: ISOS30TA4 PO (10:50)
--- NOTE | 2018-12-03 10:53 | PDOC3 ---
Discharge Summary Visit Information Date of Admission: Dec 01, 2018 Date of Discharge: Dec 03, 2018 Admitting Diagnosis Comment: ESRD on dialysis Anemia of ESRD Chest pain Hyperkalemia Fatigue Accelerated hypertension Bradycardia Final Diagnosis Problems Medical Problems: (1) Chest pain Status: Acute Brief Hospital Course Allergies Allergies Coded Allergies Type Severity Reaction Last Updated Verified No Known Drug Allergies 10/01/18 No Vital Signs Vital Signs Date Time Temp Pulse Resp B/P (MAP) Pulse Ox O2 Delivery O2 Flow Rate FiO2 12/03/18 08:29 54 151/65 12/03/18 08:27 Room Air 12/03/18 07:00 98.6 20 95 98.6 Lab Results Laboratory Tests Test 12/01/18 17:00 12/01/18 21:11 12/01/18 22:15 12/02/18 01:25 White Blood Count 5.3 x10^3/uL (4.0-11.0) 4.8 x10^3/uL (4.0-11.0) Red Blood Count 3.36 x10^6/uL (3.50-5.40) 3.22 x10^6/uL (3.50-5.40) Hemoglobin 10.5 g/dL (12.0-15.5) 9.8 g/dL (12.0-15.5) Hematocrit 30.3 % (36.0-47.0) 29.0 % (36.0-47.0) Mean Corpuscular Volume 90 fL (79-100) 90 fL (79-100) Mean Corpuscular Hemoglobin 31 pg (25-35) 30 pg (25-35) Mean Corpuscular Hemoglobin Concent 35 g/dL (31-37) 34 g/dL (31-37) Red Cell Distribution Width 15.1 % (11.5-14.5) 14.5 % (11.5-14.5) Platelet Count 224 x10^3/uL (140-400) 202 x10^3/uL (140-400) Neutrophils (%) (Auto) 70 % (31-73) 58 % (31-73) Lymphocytes (%) (Auto) 20 % (24-48) 29 % (24-48) Monocytes (%) (Auto) 7 % (0-9) 9 % (0-9) Eosinophils (%) (Auto) 3 % (0-3) 3 % (0-3) Basophils (%) (Auto) 1 % (0-3) 1 % (0-3) Neutrophils # (Auto) 3.7 x10^3uL (1.8-7.7) 2.8 x10^3uL (1.8-7.7) Lymphocytes # (Auto) 1.1 x10^3/uL (1.0-4.8) 1.4 x10^3/uL (1.0-4.8) Monocytes # (Auto) 0.3 x10^3/uL (0.0-1.1) 0.4 x10^3/uL (0.0-1.1) Eosinophils # (Auto) 0.2 x10^3/uL (0.0-0.7) 0.2 x10^3/uL (0.0-0.7) Basophils # (Auto) 0.0 x10^3/uL (0.0-0.2) 0.0 x10^3/uL (0.0-0.2) D-Dimer (Rosa M) 0.37 ug/mlFEU (0.00-0.50) Sodium Level 141 mmol/L (136-145) 142 mmol/L (136-145) Potassium Level 4.8 mmol/L (3.5-5.1) 5.2 mmol/L (3.5-5.1) Chloride Level 102 mmol/L (98-107) 104 mmol/L (98-107) Carbon Dioxide Level 31 mmol/L (21-32) 29 mmol/L (21-32) Anion Gap 8 (6-14) 9 (6-14) Blood Urea Nitrogen 36 mg/dL (7-20) 42 mg/dL (7-20) Creatinine 4.9 mg/dL (0.6-1.0) 6.1 mg/dL (0.6-1.0) Estimated GFR (Cockcroft-Gault) 8.9 6.9 BUN/Creatinine Ratio 7 (6-20) 7 (6-20) Glucose Level 182 mg/dL (70-99) 94 mg/dL (70-99) Calcium Level 9.2 mg/dL (8.5-10.1) 8.9 mg/dL (8.5-10.1) Magnesium Level 2.3 mg/dL (1.8-2.4) Total Bilirubin 0.3 mg/dL (0.2-1.0) 0.3 mg/dL (0.2-1.0) Aspartate Amino Transf (AST/SGOT) 19 U/L (15-37) 13 U/L (15-37) Alanine Aminotransferase (ALT/SGPT) 29 U/L (14-59) 24 U/L (14-59) Alkaline Phosphatase 65 U/L (46-116) 57 U/L (46-116) Troponin I Quantitative < 0.017 ng/mL (0.000-0.055) < 0.017 ng/mL (0.000-0.055) 0.019 ng/mL (0.000-0.055) Total Protein 7.5 g/dL (6.4-8.2) 6.8 g/dL (6.4-8.2) Albumin 3.9 g/dL (3.4-5.0) 3.4 g/dL (3.4-5.0) Albumin/Globulin Ratio 1.1 (1.0-1.7) 1.0 (1.0-1.7) Glucose (Fingerstick) 145 mg/dL (70-99) Test 12/02/18 07:12 12/02/18 09:35 12/02/18 11:52 12/02/18 17:05 Glucose (Fingerstick) 99 mg/dL (70-99) 92 mg/dL (70-99) 79 mg/dL (70-99) Potassium Level 5.1 mmol/L (3.5-5.1) Troponin I Quantitative < 0.017 ng/mL (0.000-0.055) Triglycerides Level 136 mg/dL (0-150) Cholesterol Level 95 mg/dL (0-200) LDL Cholesterol, Calculated 31 mg/dL (0-100) VLDL Cholesterol, Calculated 27 mg/dL (0-40) Non-HDL Cholesterol Calculated 58 mg/dL (0-129) HDL Cholesterol 37 mg/dL (40-60) Cholesterol/HDL Ratio 2.6 Thyroid Stimulating Hormone (TSH) 2.202 uIU/mL (0.358-3.74) Test 12/02/18 20:15 12/03/18 07:50 Glucose (Fingerstick) 127 mg/dL (70-99) 101 mg/dL (70-99) Laboratory Tests Test 12/02/18 11:52 12/02/18 17:05 12/02/18 20:15 12/03/18 07:50 Glucose (Fingerstick) 92 mg/dL (70-99) 79 mg/dL (70-99) 127 mg/dL (70-99) 101 mg/dL (70-99) Brief Hospital Course Ms. John is a 68 old female with limited Mongolian, ESRD on dialysis via left AV fistula comes in because of fatigue and accelerated hypertension. Better after dialysis. Also needed to start 2 blood pressure medications, Rx on chart Comanage with cardiology She feels much better, blood pressure better with this two new medications. To go home today independent after dialysis Consults performed cardiology, renal Procedures performed echo and dialysis Discharge time less than 30 minutes Discharge Information Condition at Discharge: Improved, Stable Disposition/Orders: D/C to Home Scheduled Amlodipine Besylate (Amlodipine Besylate) 10 Mg Tablet, 10 MG PO DAILY, (Reported) Entered as Reported by: GREGORY PHOENIX on 10/01/181407 Last Action: Continued on 12/02/18854 by DAHLIA KURTZ Aspirin (Aspir-Low) 81 Mg Tablet.dr, 1 TAB PO DAILY, #30 Ref 3 (Reported) Entered as Reported by: GREGORY PHOENIX on 10/01/181407 Last Action: Continued on 12/02/18854 by DAHLIA KURTZ Carvedilol (Carvedilol) 25 Mg Tablet, 25 MG PO BIDWMEALS for CARDIAC, (Reported) Entered as Reported by: GREGORY PHOENIX on 10/01/181407 Last Action: Converted on 12/02/18854 by DAHLIA KURTZ Clopidogrel Bisulfate (Clopidogrel) 75 Mg Tablet, 1 TAB PO DAILY, #90 Ref 1 (Reported) Entered as Reported by: GREGORY PHOENIX on 10/01/181407 Last Action: Continued on 12/02/18854 by DAHLIA KURTZ Hydralazine Hcl (Hydralazine Hcl) 50 Mg Tablet, 50 MG PO TID for htn, #90 Prescribed by: DAHLIA KURTZ on 12/03/18 1050 Isosorbide Mononitrate (Isosorbide Mononitrate Er) 30 Mg Tab.er.24h, 60 MG PO DAILY for htn MDD 1, #60 Prescribed by: DAHLIA KURTZ on 12/03/18 1050 Losartan Potassium (Losartan Potassium) 50 Mg Tablet, 50 MG PO BID for HYPERTENSION, (Reported) Entered as Reported by: GREGORY PHOENIX on 10/01/181407 Last Action: Continued on 12/02/18854 by DAHLIA KURTZ Rosuvastatin Calcium (Crestor) 10 Mg Tablet, 10 MG PO HS for FOR CHOLESTEROL, #30 Ref 0 (Reported) Entered as Reported by: GREGORY PHOENIX on 10/01/181407 Last Action: Converted on 12/02/18854 by DAHLIA KURTZ Sertraline Hcl (Zoloft) 25 Mg Tablet, 1 TAB PO DAILY, #30 Ref 2 (Reported) Entered as Reported by: GREGORY PHOENIX on 10/01/181407 Last Action: Converted on 12/02/18854 by DAHLIA KURTZ Sevelamer Carbonate (Renvela) 800 Mg Tablet, 3 TAB PO TID, #810 Ref 3 (Reported) Entered as Reported by: GREGORY PHOENIX on 10/01/181407 Last Action: Continued on 12/02/18854 by DAHLIA KURTZ Sodium Bicarbonate (Sodium Bicarbonate) 650 Mg Tablet, 2 TAB PO BID, #60 Ref 5 (Reported) Entered as Reported by: GREGORY PHOENIX on 10/01/181407 Last Action: Continued on 12/02/18854 by DAHLIA KURTZ Scheduled PRN Loperamide Hcl (Loperamide) 2 Mg Capsule, 2 MG PO for DIARRHEA, (Reported) Entered as Reported by: GREGORY PHOENIX on 10/01/181407 Last Action: Reviewed on 12/02/18854 by DAHLIA SAWYER MD Dec 03, 2018 10:53
[2018-12-03 11:00] VITALS: BP 75/40
[2018-12-03 11:02] LABS: CALCIUM 9.2 mg/dL (8.5-10.1); CREATININE 5.5 mg/dL (0.6-1.0); GFR 7.8; POTASSIUM 4.9 mmol/L (3.5-5.1)
[2018-12-03 11:07] LABS: ALBUMIN 3.3 g/dL (3.4-5.0); TOTAL BILIRUBIN 0.4 mg/dL (0.2-1.0); TOTAL PROTEIN 6.6 g/dL (6.4-8.2)
--- NOTE | 2018-12-03 11:09 | SNU/HH DC ---
DISCHARGE WITH HOME HEALTH DISCHARGE INFORMATION: Discharge Date: Dec 03, 2018 Final Diagnosis: Problems Medical Problems: (1) Chest pain Status: Acute Condition on Discharge: Stable CODE STATUS: Code Status: Full HOME HEALTH: Face to Face: I certify this patient is under my care and that I, or a nurse practitioner or physician's bus assistant working with me, had a face to face encounter that meets the physician face to face encounter requirements with this patient on []. RN For Eval/Treatment: Yes Physical Therapy For: Evalulation/Treatment Occupational Therapy For: Evaluation/Treatment Speech Language Pathology For: Evaluation/Treatment Home Health Aide For: Self-care [employer]ER For: Community Resources Pt Meets Homebound Status: Fatigue w/ amb. POST DISCHARGE ORDERS: Activity Instructions for Disc: Activity as tolerated Weight Bearing Status after Di: No restrictions DIET AFTER DISCHARGE: Renal CHECKS AFTER DISCHARGE: Checks after discharge: Check blood press - daily, Check blood sugar, ac/hs FOLLOW-UP: PCP to follow Home Health: BP, admitted for hTN, but went hypotensive with new med imdur and hydralazine Follow up with: pcp 2-4 weeks re bp TREATMENT/EQUIPMENT ORDERS: Adaptive Equipment Issued: None CERTIFICATION STATEMENT: Certification Statement: Certification Statement: Based on the above finding, I certify that this patient is confined to the home and needs intermittent jail care, physical therapy and/or speech therapy, or continues to need occupational therapy.~ This patient is under my care, and I have initiated the establishment of the plan of care.~ This patient will be followed by myself or a community physician who will periodically review the plan of care. Home Meds Reported Medications Loperamide Hcl (LOPERAMIDE) 2 Mg Capsule, 2 MG PO PRN for DIARRHEA, CAP 10/01/18 Sodium Bicarbonate (SODIUM BICARBONATE) 650 Mg Tablet, 2 TAB PO BID, #60 TAB 5 Refills 10/01/18 Sevelamer Carbonate (RENVELA) 800 Mg Tablet, 3 TAB PO TID, #810 TAB 3 Refills 10/01/18 Sertraline Hcl (ZOLOFT) 25 Mg Tablet, 1 TAB PO DAILY, #30 TAB 2 Refills 10/01/18 Rosuvastatin Calcium (CRESTOR) 10 Mg Tablet, 10 MG PO HS for FOR CHOLESTEROL, #30 TAB 0 Refills 10/01/18 Losartan Potassium (LOSARTAN POTASSIUM) 50 Mg Tablet, 50 MG PO BID for HYPERTENSION, TAB 4/19/19 Clopidogrel Bisulfate (CLOPIDOGREL) 75 Mg Tablet, 1 TAB PO DAILY, #90 TAB 1 Refill 10/01/18 Carvedilol (CARVEDILOL) 25 Mg Tablet, 25 MG PO BIDWMEALS for CARDIAC, TAB 10/01/18 Aspirin (ASPIR-LOW) 81 Mg Tablet.dr, 1 TAB PO DAILY, #30 TAB 3 Refills 10/01/18 Amlodipine Besylate (AMLODIPINE BESYLATE) 10 Mg Tablet, 10 MG PO DAILY, TAB 10/01/18 DAHLIA KURTZ MD Dec 03, 2018 11:09
[2018-12-03] MEDS ORDERED: IV NORMAL SALINE 500ML BAG 500 ML IV ONE (11:15)
--- NOTE | 2018-12-03 11:39 | NUR ---
SS following up with discharge planning. Discharge orders received for return to [facility], [phone]; fax [phone], with home healthcare. Pt previously on services with [facility], ; fax [phone]. SS phoned and faxed discharge orders to [facility] and [facility]. Pt will discharge today and return to [facility] with [facility] between 1300 and 1330. Pt and pt's RN notified. SS left voicemail for pt's son notifying.
--- NOTE | 2018-12-03 11:46 | NUR ---
SS following up with discharge planning. Transportation time changed to [id number] due to need for dialysis prior to discharge. Pt's RN notified.
[2018-12-03] MEDS ORDERED: IV NORMAL SALINE 1000ML BAG 1,000 ML IV PRN ×2 (12:13)
[2018-12-03] MEDS ORDERED: diphenhydrAMINE 50 MG/ML VIAL IV PRN ×2 (12:15)
[2018-12-03] MEDS ORDERED: DIALYSIS PATIENT. MC PRN (12:15)
[2018-12-03] MEDS ORDERED: ALBUMIN HUMAN 25% 200 ML IV PRN (12:15)
[2018-12-03] MEDS ORDERED: ACETAMINOPHEN 500 MG TABLET PO PRN (12:15)
--- NOTE | 2018-12-03 14:15 | PDOC ---
SUBJECTIVE ROS Seen on HD, tolerating well OBJECTIVE Vital Signs Vital Signs Date Time Temp Pulse Resp B/P (MAP) Pulse Ox O2 Delivery O2 Flow Rate FiO2 12/03/18 11:00 98.2 50 20 75/40 (52) 94 Room Air 98.2 I & 0 Intake and Output 12/03/18 06:59 Intake Total 450 ml Balance 450 ml Intake Oral 450 ml # Voids 2 PHYSICAL EXAM Physical Exam GGeneral: No acute distress HEENT: Mucous membr. 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 COMMENT/RELEVANT DATA Meds Current Medications Medications (Trade) Dose Ordered Sig/Mic Start Time Stop Time Status Last Admin Dose Admin Acetaminophen (Tylenol) 500 mg 1X PRN PRN 12/03/18 12:15 12/04/18 12:14 Acetaminophen/ Codeine Phosphate (Tylenol #3) 1 tab PRN Q6HRS PRN 12/02/18 09:00 12/03/18 08:27 1 TAB Albumin Human 200 ml @ 200 mls/hr 1X PRN PRN 12/03/18 12:15 12/03/18 18:14 Amlodipine Besylate (Norvasc) 10 mg DAILY 12/02/18 09:00 12/03/18 08:29 10 MG Aspirin (Ecotrin) 81 mg DAILY 12/02/18 09:00 12/03/18 08:26 81 MG Atorvastatin Calcium (Lipitor) 40 mg QHS 12/02/18 21:00 12/02/18 21:31 40 MG Carvedilol (Coreg) 12.5 mg BIDWMEALS 12/02/18 17:00 12/03/18 08:28 12.5 MG Clopidogrel Bisulfate (Plavix) 75 mg DAILY 12/02/18 09:00 12/03/18 08:28 75 MG Diphenhydramine HCl (Benadryl) 25 mg 1X PRN PRN 12/03/18 12:15 12/04/18 12:14 Fentanyl Citrate (Fentanyl 2ml Vial) 25 mcg PRN Q3HRS PRN 12/01/18 19:30 12/02/18 19:29 DC 12/01/18 22:45 25 MCG Hydralazine HCl (Apresoline Inj) 10 mg PRN Q4HRS PRN 12/02/18 08:15 12/03/18 04:28 10 MG Hydralazine HCl (Apresoline) 50 mg TID 12/03/18 09:00 12/03/18 11:04 DC 12/03/18 08:27 50 MG Info (PHARMACY MONITORING -- do not chart) 1 each PRN DAILY PRN 12/03/18 12:15 Isosorbide Mononitrate (Imdur) 60 mg DAILY 12/03/18 09:00 12/03/18 08:26 60 MG Losartan Potassium (Cozaar) 50 mg BID 12/02/18 09:00 12/02/18 21:33 50 MG Ondansetron HCl (Zofran) 4 mg PRN Q6HRS PRN 12/02/18 09:00 Sertraline HCl (Zoloft) 25 mg DAILY 12/02/18 09:00 12/03/18 08:27 25 MG Sevelamer Carbonate (Renvela) 2,400 mg TIDWMEALS 12/02/18 12:00 12/03/18 08:26 2,400 MG Sodium Bicarbonate (Sodium Bicarbonate) 1,300 mg BID 12/02/18 09:00 12/03/18 08:26 1,300 MG Sodium Chloride 1,000 ml @ 400 mls/hr Q2H30M PRN 12/03/18 12:13 12/04/18 00:12 Lab Laboratory Tests Test 12/02/18 17:05 12/02/18 20:15 12/03/18 07:50 12/03/18 10:35 Glucose (Fingerstick) 79 mg/dL (70-99) 127 mg/dL (70-99) 101 mg/dL (70-99) Sodium Level 138 mmol/L (136-145) Potassium Level 4.9 mmol/L (3.5-5.1) Chloride Level 100 mmol/L (98-107) Carbon Dioxide Level 31 mmol/L (21-32) Anion Gap 7 (6-14) Blood Urea Nitrogen 37 mg/dL (7-20) Creatinine 5.5 mg/dL (0.6-1.0) Estimated GFR (Cockcroft-Gault) 7.8 BUN/Creatinine Ratio 7 (6-20) Glucose Level 134 mg/dL (70-99) Calcium Level 9.2 mg/dL (8.5-10.1) Total Bilirubin 0.4 mg/dL (0.2-1.0) Aspartate Amino Transf (AST/SGOT) 21 U/L (15-37) Alanine Aminotransferase (ALT/SGPT) 29 U/L (14-59) Alkaline Phosphatase 51 U/L (46-116) Total Protein 6.6 g/dL (6.4-8.2) Albumin 3.3 g/dL (3.4-5.0) Albumin/Globulin Ratio 1.0 (1.0-1.7) Test 12/03/18 12:03 Glucose (Fingerstick) 150 mg/dL (70-99) Results All relevant outside records, renal labs, imaging studies, telemetry/EKG's were reviewed. MARCEL TAN MD Dec 03, 2018 14:14
[2018-12-03 15:00] VITALS: BP 149/68
--- NOTE | 2018-12-03 16:59 | NUR ---
Discharge Note: [facility] Discharge instructions and discharge home medications reviewed with Other facility [facility] Nurse and a copy given. All questions have been answered and understanding verbalized. The following instructions and handouts were given: CP, HTN Discontinued lines and drains: Peripheral IV intact. Patient discharged to Assisted Living with wheelchair van personnel via Wheelchair
--- NOTE | 2018-12-03 17:00 | PDOC ---
CARDIO Progress Notes Date and Time Date of Service 12/03/2018 Time of Evaluation 1050 Subjective Subjective: No Chest Pain, No shortness of breath, No Palpitations Vitals Vitals Vital Signs Date Time Temp Pulse Resp B/P (MAP) Pulse Ox O2 Delivery O2 Flow Rate FiO2 12/03/18 15:00 98.4 58 20 149/68 (95) 97 Room Air 98.4 Weight Weight [ ] Input and Output Intake and Output Intake and Output 12/03/18 06:59 Intake Total 450 ml Balance 450 ml Intake Oral 450 ml # Voids 2 Laboratory Labs Laboratory Tests Test 12/02/18 17:05 12/02/18 20:15 12/03/18 07:50 12/03/18 10:35 Glucose (Fingerstick) 79 mg/dL (70-99) 127 mg/dL (70-99) 101 mg/dL (70-99) Sodium Level 138 mmol/L (136-145) Potassium Level 4.9 mmol/L (3.5-5.1) Chloride Level 100 mmol/L (98-107) Carbon Dioxide Level 31 mmol/L (21-32) Anion Gap 7 (6-14) Blood Urea Nitrogen 37 mg/dL (7-20) Creatinine 5.5 mg/dL (0.6-1.0) Estimated GFR (Cockcroft-Gault) 7.8 BUN/Creatinine Ratio 7 (6-20) Glucose Level 134 mg/dL (70-99) Calcium Level 9.2 mg/dL (8.5-10.1) Total Bilirubin 0.4 mg/dL (0.2-1.0) Aspartate Amino Transf (AST/SGOT) 21 U/L (15-37) Alanine Aminotransferase (ALT/SGPT) 29 U/L (14-59) Alkaline Phosphatase 51 U/L (46-116) Total Protein 6.6 g/dL (6.4-8.2) Albumin 3.3 g/dL (3.4-5.0) Albumin/Globulin Ratio 1.0 (1.0-1.7) Test 12/03/18 12:03 Glucose (Fingerstick) 150 mg/dL (70-99) Physical Exam HEENT: Neck Supple W Full Motion Chest: Symmetric LUNGS: Clear to Auscultation Heart: S1S2, RRR (SR) Abdomen: Soft N/T Extremities: No Calf Tenderness Neurology: alert, oriented, follow commands Assessment Assessment 1. Chest pain: trops nml, EKG SR no acute changes. Possibly from uncontrolled HTN 2. HTN: hypotensive this AM likely from multiple BP meds. Better after fluid bolus. Pt was asymptomatic 3. HLP: on goal 4. ESRD 5. DM2 6. CAD: S/P PCI/LIZA to RCA at [facility]. EF and WM nml 7. Asymptomatic SB: lowest in the 40s no pauses. Recommendations 1. Continue with secondary prevention. ASA/plavix 2. SNU today 3. Follow up with [facility] cardiology 4. Consider for outpt stress test, will defer to her outpt icu specialist 5. Fluid off loading per HD JARRETT SALDANA APRN Dec 03, 2018 17:00
== END 2018-12-03 17:01 | disposition home health service (06) | DRG 682 ==
LOC: ER 16:42 → 2 SOUTH 18:05
PROVIDERS: ADMIT Internal Medicine; ATTEND Internal Medicine
PROC: 5A1D70Z Performance of Urinary Filtration, Intermittent, Less than 6 Hours Per Day (ICD-10-PCS; principal; 2018-12-03)
DX: I12.0 Hypertensive chronic kidney disease with stage 5 chronic kidney disease or end stage renal disease (principal); N18.6 End stage renal disease; E87.5 Hyperkalemia; D63.1 Anemia in chronic kidney disease; E11.22 Type 2 diabetes mellitus with diabetic chronic kidney disease; E78.5 Hyperlipidemia, unspecified; M54.5 Low back pain; I25.10 Atherosclerotic heart disease of native coronary artery without angina pectoris; Z79.02 Long term (current) use of antithrombotics/antiplatelets; Z79.82 Long term (current) use of aspirin; Z79.899 Other long term (current) drug therapy; Z82.49 Family history of ischemic heart disease and other diseases of the circulatory system; Z98.61 Coronary angioplasty status; Z99.2 Dependence on renal dialysis
CPT/HCPCS: 36415; 71045; 80053; 80061; 82962; 83735; 84132; 84443; 84484; 85025; 85379; 93005; 93306; 96374; J0360; J3010; J7040; 99285-25

== ENCOUNTER 2019-12-02 11:31 | Emergency (ER) | payer OTHER, MEDICAID ==
[~2019-12-02] VITALS: Ht 147.3 cm; Wt 58.0 kg
[~2019-12-02 11:31] MED LIST changes: +HYDR-2869 PO; +ISOS30TA4 PO
--- NOTE | 2019-12-02 11:58 | PHYS DOC ---
Past Medical History Past Medical History: Hypertension, Renal Failure Additional Past Medical Histor: A/V FISTULA LEFT ARM Past Surgical History: Other Additional Past Surgical Histo: A/V FISTULA L ARM Smoking Status: Never Smoker Alcohol Use: None Drug Use: None General Adult EDM: Chief Complaint: DIALYSIS PROBLEM HPI: HPI: Patient is a 69 year old female who presents with patient was sent here by [facility] because her left arm AV fistula was been oozing blood for the last 2 days. Bleeding is controlled. Patient has no complaints. She is alert oriented. She is due for dialysis today at 1500. She gets dialysis every Thursday, Thursday. Review of Systems: Review of Systems: Integument: Denies rash. Left arm AV fistula oozing. [] Heart Score: Risk Factors: Risk Factors: DM, Current or recent (<one month) smoker, HTN, HLP, family history of CAD, obesity. Risk Scores: Score 0 - 3: 2.5% MACE over next 6 weeks - Discharge Home Score 4 - 6: 20.3% MACE over next 6 weeks - Admit for Clinical Observation Score 7 - 10: 72.7% MACE over next 6 weeks - Early Invasive Strategies Allergies: Allergies: Allergies Coded Allergies Type Severity Reaction Last Updated Verified No Known Drug Allergies 10/01/18 No Physical Exam: PE: Constitutional: Well developed, well nourished, no acute distress, non-toxic appearance. [] HENT: Normocephalic, atraumatic, bilateral external ears normal, oropharynx moist, no oral exudates, nose normal. [] Eyes: PERRLA, EOMI, conjunctiva normal, no discharge. [] Neck: Normal range of motion, no tenderness, supple, no stridor. [] Cardiovascular:Heart rate regular rhythm, no murmur [] Lungs & Thorax: Bilateral breath sounds clear to auscultation [] Abdomen: Bowel sounds normal, soft, no tenderness, no masses, no pulsatile masses. [] Skin: Warm, dry, no erythema, no rash. Left arm AV fistula that is oozing blood from puncture site where it was last punctured. [] Back: No tenderness, no CVA tenderness. [] Extremities: No tenderness, no cyanosis, no clubbing, ROM intact, no edema. [] Neurologic: Alert and oriented X 3, normal motor function, normal sensory function, no focal deficits noted. [] Psychologic: Affect normal, judgement normal, mood normal. [] EKG: EKG: [] Radiology/Procedures: Radiology/Procedures: [] Course & Med Decision Making: Course & Med Decision Making Pertinent Labs and Imaging studies reviewed. (See chart for details) Alert and oriented. Speaks in full clear sentences. Ambulatory with a steady gait. I unwrapped the patient's left arm and there is a small puncture area from where they had access her AV fistula on the left arm on Thursday that is oozing blood. Bleeding is controlled. Patient is on blood thinners. I put a pressure dressing on it. I have discussed the care plan with Dr Trammell. Patient to follow-up and go to dialysis at 1500 today. [] Dragon Disclaimer: Eric Disclaimer: This electronic medical record was generated, in whole or in part, using a voice recognition dictation system. Departure Departure Impression: Primary Impression: Problem with dialysis access Qualified Codes: T82.898A - Other specified complication of vascular prosthetic devices, implants and grafts, initial encounter Disposition: 01 HOME, SELF-CARE Condition: STABLE Referrals: MAUREEN BEAN MD (PCP) Patient Instructions: Medical Screening Exam Additional Instructions: Follow-up with primary care provider. Go to dialysis today as scheduled. Justicifation of Admission Dx: Justifications for Admission: Justification of Admission Dx: N/A ANA LAURA FLORES [employer] Dec 02, 2019 11:58
[2019-12-02 12:55] VITALS: BP 207/157
== END 2019-12-02 12:55 | disposition home or self-care (01) ==
LOC: ER 11:31
DX: T82.898A Other specified complication of vascular prosthetic devices, implants and grafts, initial encounter (principal); I10 Essential (primary) hypertension; Z98.890 Other specified postprocedural states
CPT/HCPCS: 99283

== ENCOUNTER 2020-04-09 14:27 | Inpatient (IN) | payer OTHER, MEDICAID ==
[2020-04-09] VITALS (10 sets, daily range): BP systolic 182–211; BP diastolic 61–93
[~2020-04-09] VITALS: Ht 149.9 cm; Wt 59.7 kg
[~2020-04-09 14:27] MED LIST changes: +AMLO-187 PO; -AMLO10TA8 PO
[2020-04-09] MEDS ORDERED: ONDANSETRON PF 4 MG/2 ML VIAL. IVP ONE (14:45)
[2020-04-09] MEDS ORDERED: METOCLOPRAMIDE HCL 10 MG/2 ML VIAL. IVP ONE (14:45)
[2020-04-09] MEDS ORDERED: IV NORMAL SALINE 1000ML BAG 1,000 ML IV ONE (14:45)
[2020-04-09] MEDS ORDERED: ATROPINE 1 MG/10 ML DISP.SYRINGE. ONE (15:20)
[2020-04-09 15:26] LABS: BASO # 0.1 x10^3/uL (0.0-0.2); BASO % 1 % (0-3); EOS # 0.1 x10^3/uL (0.0-0.7); EOS % 1 % (0-3); HEMATOCRIT 37.5 % (36.0-47.0); HEMOGLOBIN 12.4 g/dL (12.0-15.5); LYMPH # 1.1 x10^3/uL (1.0-4.8); LYMPH % 10 % (24-48); MEAN CORPUSCULAR HEMOGLOBIN 30 pg (25-35); MEAN CORPUSCULAR HGB CONC 33 g/dL (31-37); MEAN CORPUSCULAR VOLUME 90 fL (79-100); MONO # 0.5 x10^3/uL (0.0-1.1); MONO % 5 % (0-9); NEUT # 8.6 x10^3/uL (1.8-7.7); NEUT % 84 % (31-73); PLATELET COUNT 267 x10^3/uL (140-400); RED BLOOD COUNT 4.17 x10^6/uL (3.50-5.40); RED CELL DISTRIBUTION WIDTH 14.6 % (11.5-14.5); WHITE BLOOD COUNT 10.3 x10^3/uL (4.0-11.0)
[2020-04-09] MEDS ORDERED: ATROPINE 1 MG/10 ML DISP.SYRINGE. IV ONE (15:30)
[2020-04-09] MEDS ORDERED: ATROPINE 0.5 MG/5 ML DISP.SYRINGE. IV ONE (15:30)
[2020-04-09 15:39] LABS: PROTHROMBIN TIME PATIENT 13.4 SEC (11.7-14.0)
[2020-04-09 15:51] LABS: ALBUMIN 4.2 g/dL (3.4-5.0); ALBUMIN/GLOBULIN RATIO 1.2 (1.0-1.7); CALCIUM 8.6 mg/dL (8.5-10.1); CREATININE 11.5 mg/dL (0.6-1.0); GFR 3.3; MAGNESIUM 3.5 mg/dL (1.8-2.4); TOTAL BILIRUBIN 0.3 mg/dL (0.2-1.0); TOTAL PROTEIN 7.6 g/dL (6.4-8.2)
[2020-04-09 15:55] LABS: POTASSIUM 8.7 mmol/L (3.5-5.1)
[2020-04-09] MEDS ORDERED: ALBUTEROL SULFATE 2.5 MG/3 ML NEBU. CONT NEB ONE (16:00)
[2020-04-09] MEDS ORDERED: CALCIUM CHLORIDE 1,000 MG/10 ML DISP.SYRIN IV ONE (16:00)
[2020-04-09] MEDS ORDERED: DEXTROSE 50% 25 GM / 50ML DISP.SYRIN. IV ONE (16:00)
[2020-04-09] MEDS ORDERED: BENZTROPINE MESYLATE 2 MG/2 ML VIAL. IV PRN (16:00)
[2020-04-09] MEDS ORDERED: SODIUM BICARB ADULT 8.4% 50 MEQ/50 ML DISP.SYRIN. IV ONE (16:00)
[2020-04-09] MEDS ORDERED: INSULIN REGULAR 100 UNIT/ML 3ML VIAL. IV ONE (16:00)
--- NOTE | 2020-04-09 16:01 | PHYS DOC ---
Past Medical History Past Medical History: CAD, Hypertension, MD, Renal Disease, Renal Failure Additional Past Medical Histor: A/V FISTULA LEFT ARM Past Surgical History: Other Additional Past Surgical Histo: Unknown Smoking Status: Never Smoker Alcohol Use: None Drug Use: None General Adult EDM: Chief Complaint: NAUSEA/VOMITING/DIARRHA HPI: HPI: Patient is a 69 year old female with a history of end-stage renal failure on hemodialysis, was brought here for evaluation from [facility] due to nausea vomiting diarrhea and generalized weakness since yesterday. Patient is supposed to have her hemodialysis today at 3 PM. Patient denies any abdominal pain. Patient did feel nauseated and weak, cramping all over, having diarrhea. Patient denies any chest pain, no cough, no fever. Patient had not been able to take any of her home medication today due to nausea vomiting. Patient was given 4 mg Zofran by EMS on route. Review of Systems: Review of Systems: Constitutional: Denies fever or chills. [] Eyes: Denies change in visual acuity. [] HENT: Denies nasal congestion or sore throat. [] Respiratory: Denies cough or shortness of breath. [] Cardiovascular: Denies chest pain or edema. [] GI: Positive for nausea vomiting and diarrhea, no abdominal pain : Denies dysuria. [] Musculoskeletal: Denies back pain or joint pain. Positive for muscle cramping. Integument: Denies rash. [] Neurologic: Denies headache, focal weakness or sensory changes. [] Endocrine: Denies polyuria or polydipsia. [] Lymphatic: Denies swollen glands. [] Psychiatric: Denies depression or anxiety. [] Heart Score: Risk Factors: Risk Factors: DM, Current or recent (<one month) smoker, HTN, HLP, family history of CAD, obesity. Risk Scores: Score 0 - 3: 2.5% MACE over next 6 weeks - Discharge Home Score 4 - 6: 20.3% MACE over next 6 weeks - Admit for Clinical Observation Score 7 - 10: 72.7% MACE over next 6 weeks - Early Invasive Strategies Current Medications: Current Medications Medications (Trade) Dose Ordered Sig/Mic Start Time Stop Time Status Last Admin Dose Admin Albuterol Sulfate (Ventolin Neb Soln) 10 mg 1X ONCE 04/09/20 16:00 04/09/20 16:01 UNV Atropine Sulfate (ATROPINE 0.5mg SYRINGE) 0.5 mg 1X ONCE 04/09/20 15:30 04/09/20 15:20 DC Atropine Sulfate (ATROPINE 1mg SYRINGE) 0.5 mg 1X ONCE 04/09/20 15:30 04/09/20 15:31 DC 04/09/20 15:22 0.5 MG Benztropine Mesylate (Cogentin) 2 mg PRN BID PRN 04/09/20 16:00 Calcium Chloride (Calcium Chloride) 1,000 mg 1X ONCE 04/09/20 16:00 04/09/20 16:01 UNV Dextrose (Dextrose 50%-Water Syringe) 25 gm 1X ONCE 04/09/20 16:00 04/09/20 16:01 UNV Insulin Human Regular (HumuLIN R VIAL) 10 unit 1X ONCE 04/09/20 16:00 04/09/20 16:01 UNV Metoclopramide HCl (Reglan Vial) 10 mg 1X ONCE 04/09/20 14:45 04/09/20 14:46 DC 04/09/20 15:22 10 MG Ondansetron HCl (Zofran) 4 mg 1X ONCE 04/09/20 14:45 04/09/20 14:46 Cancel Sodium Bicarbonate (Sodium Bicarb Adult 8.4% Syr) 50 meq 1X ONCE 04/09/20 16:00 04/09/20 16:01 UNV Sodium Chloride 1,000 ml @ 1,000 mls/hr 1X ONCE 04/09/20 14:45 04/09/20 15:44 DC 04/09/20 15:22 1,000 MLS/HR Allergies: Allergies: Allergies Coded Allergies Type Severity Reaction Last Updated Verified No Known Drug Allergies 10/01/18 No Physical Exam: PE: Constitutional: Well developed, well nourished, no acute distress, non-toxic appearance. [] HENT: Normocephalic, atraumatic, bilateral external ears normal, oropharynx moist, no oral exudates, nose normal. [] Eyes: PERRLA, EOMI, conjunctiva normal, no discharge. [] Neck: Normal range of motion, no tenderness, supple, no stridor. [] Cardiovascular:Heart rate regular rhythm, no murmur [] Lungs & Thorax: Bilateral breath sounds clear to auscultation [] Abdomen: Bowel sounds normal, soft, no tenderness, no masses, no pulsatile masses. [] Skin: Warm, dry, no erythema, no rash. [] Back: No tenderness, no CVA tenderness. [] Extremities: No tenderness, no cyanosis, no clubbing, ROM intact, no edema. [] Neurologic: Alert and oriented X 3, normal motor function, normal sensory function, no focal deficits noted. [] Psychologic: Affect normal, judgement normal, mood normal. [] Current Patient Data: Labs: Laboratory Tests Test 04/09/20 14:55 White Blood Count 10.3 x10^3/uL (4.0-11.0) Red Blood Count 4.17 x10^6/uL (3.50-5.40) Hemoglobin 12.4 g/dL (12.0-15.5) Hematocrit 37.5 % (36.0-47.0) Mean Corpuscular Volume 90 fL (79-100) Mean Corpuscular Hemoglobin 30 pg (25-35) Mean Corpuscular Hemoglobin Concent 33 g/dL (31-37) Red Cell Distribution Width 14.6 % (11.5-14.5) H Platelet Count 267 x10^3/uL (140-400) Neutrophils (%) (Auto) 84 % (31-73) H Lymphocytes (%) (Auto) 10 % (24-48) L Monocytes (%) (Auto) 5 % (0-9) Eosinophils (%) (Auto) 1 % (0-3) Basophils (%) (Auto) 1 % (0-3) Neutrophils # (Auto) 8.6 x10^3/uL (1.8-7.7) H Lymphocytes # (Auto) 1.1 x10^3/uL (1.0-4.8) Monocytes # (Auto) 0.5 x10^3/uL (0.0-1.1) Eosinophils # (Auto) 0.1 x10^3/uL (0.0-0.7) Basophils # (Auto) 0.1 x10^3/uL (0.0-0.2) Sodium Level 140 mmol/L (136-145) Potassium Level 8.7 mmol/L (3.5-5.1) *H Chloride Level 98 mmol/L (98-107) Carbon Dioxide Level 26 mmol/L (21-32) Anion Gap 16 (6-14) H Blood Urea Nitrogen 107 mg/dL (7-20) H Creatinine 11.5 mg/dL (0.6-1.0) H Estimated GFR (Cockcroft-Gault) 3.3 BUN/Creatinine Ratio 9 (6-20) Glucose Level 122 mg/dL (70-99) H Calcium Level 8.6 mg/dL (8.5-10.1) Magnesium Level 3.5 mg/dL (1.8-2.4) H Total Bilirubin 0.3 mg/dL (0.2-1.0) Aspartate Amino Transferase (AST) 16 U/L (15-37) Alanine Aminotransferase (ALT) 20 U/L (14-59) Alkaline Phosphatase 62 U/L (46-116) Troponin I Quantitative < 0.017 ng/mL (0.000-0.055) Total Protein 7.6 g/dL (6.4-8.2) Albumin 4.2 g/dL (3.4-5.0) Albumin/Globulin Ratio 1.2 (1.0-1.7) Lipase 263 U/L (73-393) Laboratory Tests 04/09/20 14:55 Laboratory Tests 04/09/20 14:55 Vital Signs: Vital Signs Date Time Temp Pulse Resp B/P (MAP) Pulse Ox O2 Delivery O2 Flow Rate FiO2 04/09/20 15:08 97.9 46 16 197/82 (120) 89 97.9 EKG: EKG: EKG was done at 1448, heart rate 45 bpm, sinus bradycardia, prolonged QT interval, QT of 564, QTC of 495. Radiology/Procedures: Radiology/Procedures: [] Course & Med Decision Making: Course & Med Decision Making Pertinent Labs and Imaging studies reviewed. (See chart for details) Patient is a 69-year-old female with end-stage renal failure present to ER due to gastroenteritis symptom, her potassium level with a 45 with a heart rate of 45 bpm sinus bradycardia with prolonged QT and prolonged QTc interval. Patient will need urgent hemodialysis. Discussed with Dr. Sudarshan Thomas district court administrator on- call who agreed to dialyze her today. Discussed with Dr. Aguilar who agrees admit the patient. Patient was given calcium chloride, sodium bicarb, 1 amp D50, 10 units insulin I V, 10 of albuterol neb in the ER. Critical care time was [45] minutes which includes time at bedside, spent in discussion of patient's care with specialist and/or family members, with in terpretation of laboratory and/or radiological studies and is exclusive of procedures. Dragon Disclaimer: Dragon Disclaimer: This electronic medical record was generated, in whole or in part, using a voice recognition dictation system. Departure Departure Impression: Primary Impression: Hyperkalemia Additional Impressions: ESRD (end stage renal disease) on dialysis Gastroenteritis Disposition: 09 ADMITTED INPT THIS HOSP Admitting Physician: PREET Condition: STABLE Referrals: MAUREEN BEAN MD (PCP) AURELIA HERNANDEZ DO Apr 09, 2020 16:01
--- NOTE | 2020-04-09 16:42 | PDOC1 ---
History and Physical Date of Admission Date of Admission DATE: 04/09/20 TIME: 16:41 Identification/Chief Complaint Chief Complaint N/V/D, missed dialysis Source Source: Chart review, Patient History of Present Illness History of Present Illness Ms John is a 69 yo F Iranian speaking only w/ PMHx ESRD on hemodialysis, was brought here for evaluation from [facility] due to nausea vomiting diarrhea and generalized weakness since yesterday. Patient was supposed to have her hemodialysis today at 3 PM. Patient denies any abdominal pain. Patient did feel nauseated and weak, cramping all over, having diarrhea and skipped her last dialysis session due to these symptoms. Patient denies any chest pain, no cough, no fever. Patient had not been able to take any of her home meds today due to nausea vomiting. Patient was given 4 mg Zofran by EMS on route. In ED labs significant for WBC 10.3 Hb 12.4 platelets 267 NA 140 K8.7, BUN 107, CR 11.5, glucose 122, troponin 0. EKG heart rate 45 bpm, sinus bradycardia, prolonged QT interval, QT of 564, QTC of 495. Given calcium chloride, sodium bicarb, 1 amp D50, 10 units insulin IV, 10 of albuterol neb in the ER. No kayexelate given her diarrhea and nausea. Reglan administration with some dystonic movements, given cogentin. Admitted to ICU for urgent dialysis Past Medical History Cardiovascular: CAD, HTN, Hyperlipidemia Pulmonary: No pertinent hx CENTRAL NERVOUS SYSTEM: Other GI: No pertinent hx Heme/Onc: Anemia NOS Hepatobiliary: No pertinent hx Psych: No pertinent hx Musculoskeletal: low back pain Rheumatologic: No pertinent hx Infectious disease: No pertinent hx Renal/: Chronic renal failure Endocrine: Diabetes Past Surgical History Past Surgical History: Other Family History Family History: Hypertension Social History Smoke: No ALCOHOL: none Drugs: None Current Problem List Problem List Problems Medical Problems: (1) ESRD (end stage renal disease) on dialysis Status: Acute (2) Gastroenteritis Status: Acute (3) Hyperkalemia Status: Acute Current Medications Current Medications Current Medications Sodium Chloride 1,000 ml @ 1,000 mls/hr 1X ONCE IV Last administered on 04/09/20at 15:22; Start 04/09/20 at 14:45; Stop 04/09/20 at 15:44; Status DC Ondansetron HCl (Zofran) 4 mg 1X ONCE IVP ; Start 04/09/20 at 14:45; Stop 04/09/20 at 14:46; Status Cancel Metoclopramide HCl (Reglan Vial) 10 mg 1X ONCE IVP Last administered on 04/09/20at 15:22; Start 04/09/20 at 14:45; Stop 04/09/20 at 14:46; Status DC Atropine Sulfate (ATROPINE 0.5mg SYRINGE) 0.5 mg 1X ONCE IV ; Start 04/09/20 at 15:30; Stop 04/09/20 at 15:20; Status DC Atropine Sulfate (ATROPINE 1mg SYRINGE) 1 mg STK-MED ONCE .ROUTE ; Start 04/09/20 at 15:20; Stop 04/09/20 at 15:20; Status DC Atropine Sulfate (ATROPINE 1mg SYRINGE) 0.5 mg 1X ONCE IV Last administered on 04/09/20at 15:22; Start 04/09/20 at 15:30; Stop 04/09/20 at 15:31; Status DC Benztropine Mesylate (Cogentin) 2 mg PRN BID PRN IV EXTRAPYRAMIDAL SIDE EFFECTS; Start 04/09/20 at 16:00 Sodium Bicarbonate (Sodium Bicarb Adult 8.4% Syr) 50 meq 1X ONCE IV Last administered on 04/09/20at 16:12; Start 04/09/20 at 16:00; Stop 04/09/20 at 16:01; Status DC Calcium Chloride (Calcium Chloride) 1,000 mg 1X ONCE IV Last administered on 04/09/20at 16:12; Start 04/09/20 at 16:00; Stop 04/09/20 at 16:01; Status DC Dextrose (Dextrose 50%-Water Syringe) 25 gm 1X ONCE IV Last administered on 04/09/20at 16:12; Start 04/09/20 at 16:00; Stop 04/09/20 at 16:01; Status DC Albuterol Sulfate (Ventolin Neb Soln) 10 mg 1X ONCE CONT NEB Last administered on 04/09/20at 16:16; Start 04/09/20 at 16:00; Stop 04/09/20 at 16:01; Status DC Insulin Human Regular (HumuLIN R VIAL) 10 unit 1X ONCE IV Last administered on 04/09/20at 16:16; Start 04/09/20 at 16:00; Stop 04/09/20 at 16:01; Status DC Active Scripts Active Reported Loperamide (Loperamide Hcl) 2 Mg Capsule 2 Mg PO PRN Sodium Bicarbonate 650 Mg Tablet 2 Tab PO BID Renvela (Sevelamer Carbonate) 800 Mg Tablet 3 Tab PO TID Zoloft (Sertraline Hcl) 25 Mg Tablet 1 Tab PO DAILY Crestor (Rosuvastatin Calcium) 10 Mg Tablet 10 Mg PO HS Losartan Potassium 50 Mg Tablet 50 Mg PO BID Clopidogrel (Clopidogrel Bisulfate) 75 Mg Tablet 1 Tab PO DAILY Carvedilol 25 Mg Tablet 25 Mg PO BIDWMEALS Aspir-Low (Aspirin) 81 Mg Tablet.dr 1 Tab PO DAILY Amlodipine Besylate 10 Mg Tablet 10 Mg PO DAILY Allergies Allergies: Coded Allergies: No Known Drug Allergies (Unverified , 10/01/18) ROS General: YES: Fatigue, Malaise; No: Chills, Night Sweats, Appetite, Other PSYCHOLOGICAL ROS: No: Anxiety, Behavioral Disorder, Concentration difficultie, Decreased libido, Depression, Disorientation, Hallucinations, Hostility, Irritablity, Memory difficulties, Mood Swings, Obsessive thoughts, Physical abuse, Sexual abuse, Sleep disturbances, Suicidal ideation, Other Eyes: No Blurry vision, No Decreased vision, No Double vision, No Dry eyes, No Excessive tearing, No Eye Pain, No Itchy Eyes, No Loss of vision, No Photophob ia, No Scotomata, No Uses contacts, No Uses glasses, No Other HEENT: No: Heacaches, Visual Changes, Hearing change, Nasal congestion, Nasal discharge, Oral lesions, Sinus pain, Sore Throat, Epistaxis, Sneezing, Snoring, Tinnitus, Vertigo, Vocal changes, Other ALLERGY AND IMMUNOLOGY: No: Hives, Insect Bite Sensitivity, Itchy/Watery Eyes, Nasal Congestion, Post Nasal Drip, Seasonal Allergies, Other Hematological and Lymphatic: No: Bleeding Problems, Blood Clots, Blood Transfusions, Brusing, Night Sweats, Pallor, Swollen Lymph Nodes, Other ENDOCRINE: No: Breast Changes, Galactorrhea, Hair Pattern Changes, Hot Flashes, Malaise/lethargy, Mood Swings, Palpitations, Polydipsia/polyuria, Skin Changes, Temperature Intolerance, Unexpected Weight Changes, Other Breast: No New/Changing Breast Lumps, No Nipple changes, No Nipple discharge, No Other Respiratory: No: Cough, Hemoptysis, Orthopnea, Pleuritic Pain, Shortness of breath, SOB with excertion, Sputum Changes, Stridor, Tachypnea, Wheezing, Other Cardiovascular: No Chest Pain, No Palpitations, No Orthopnea, No Paroxysmal Noc. Dyspnea, No Edema, No Lt Headedness, No Other Gastrointestinal: Yes Nausea, Yes Vomiting, Yes Diarrhea; No Abdominal Pain, No Constipation, No Melena, No Hematochezia, No Other Genitourinary: No Dysuria, No Frequency, No Incontinence, No Hematuria, No Retention, No Discharge, No Urgency, No Pain, No Flank Pain, No Other, No , No , No , No , No , No , No Musculoskeletal: No Gait Disturbance, No Joint Pain, No Joint Stiffness, No Joint Swelling, No Muscle Pain, No Muscular Weakness, No Pain In:, No Swelling In:, No Other Neurological: No Behavorial Changes, No Bowel/Bladder ControlChng, No Confusion, No Dizziness, No Gait Disturbance, No Headaches, No Impaired Coord/balance, No Memory Loss, No Numbness/Tingling, No Seizures, No Speech Problems, No Tremors, No Visual Changes, No Weakness, No Other Skin: No Dry Skin, No Eczema, No Hair Changes, No Lumps, No Mole Changes, No Mottling, No Nail Changes, No Pruritus, No Rash, No Skin Lesion Changes, No Other, No Acne Physical Exam General: Alert, Oriented X3, Cooperative, mild distress HEENT: Atraumatic, PERRLA, EOMI, Mucous membr. moist/pink Lungs: Other (Bibasilar crackles) Heart: S1S2, RRR, no thrills, no rubs, no gallops, no murmurs Abdomen: Normal bowel sounds, Soft, No hepatosplenomegaly, No masses, Other (slight tenderness) Extremities: Other (LUE AV fistula with good bruit) Skin: No rashes, No breakdown, No significant lesion Neuro: Normal gait, Normal speech, Strength at 5/5 X4 ext, Normal tone, Sensation intact, Cranial nerves 3-12 NL, Reflexes 2+ Psych/Mental Status: Mental status NL, Mood NL Vitals Vitals Vital Signs Date Time Temp Pulse Resp B/P (MAP) Pulse Ox O2 Delivery O2 Flow Rate FiO2 04/09/20 16:16 96 Nasal Cannula 2.0 04/09/20 15:08 97.9 46 16 197/82 (120) 97.9 Labs Labs Laboratory Tests Test 04/09/20 14:55 White Blood Count 10.3 x10^3/uL (4.0-11.0) Red Blood Count 4.17 x10^6/uL (3.50-5.40) Hemoglobin 12.4 g/dL (12.0-15.5) Hematocrit 37.5 % (36.0-47.0) Mean Corpuscular Volume 90 fL (79-100) Mean Corpuscular Hemoglobin 30 pg (25-35) Mean Corpuscular Hemoglobin Concent 33 g/dL (31-37) Red Cell Distribution Width 14.6 % (11.5-14.5) Platelet Count 267 x10^3/uL (140-400) Neutrophils (%) (Auto) 84 % (31-73) Lymphocytes (%) (Auto) 10 % (24-48) Monocytes (%) (Auto) 5 % (0-9) Eosinophils (%) (Auto) 1 % (0-3) Basophils (%) (Auto) 1 % (0-3) Neutrophils # (Auto) 8.6 x10^3/uL (1.8-7.7) Lymphocytes # (Auto) 1.1 x10^3/uL (1.0-4.8) Monocytes # (Auto) 0.5 x10^3/uL (0.0-1.1) Eosinophils # (Auto) 0.1 x10^3/uL (0.0-0.7) Basophils # (Auto) 0.1 x10^3/uL (0.0-0.2) Prothrombin Time 13.4 SEC (11.7-14.0) Prothromb Time International Ratio 1.1 (0.8-1.1) Activated Partial Thromboplast Time 34 SEC (24-38) Sodium Level 140 mmol/L (136-145) Potassium Level 8.7 mmol/L (3.5-5.1) Chloride Level 98 mmol/L (98-107) Carbon Dioxide Level 26 mmol/L (21-32) Anion Gap 16 (6-14) Blood Urea Nitrogen 107 mg/dL (7-20) Creatinine 11.5 mg/dL (0.6-1.0) Estimated GFR (Cockcroft-Gault) 3.3 BUN/Creatinine Ratio 9 (6-20) Glucose Level 122 mg/dL (70-99) Calcium Level 8.6 mg/dL (8.5-10.1) Magnesium Level 3.5 mg/dL (1.8-2.4) Total Bilirubin 0.3 mg/dL (0.2-1.0) Aspartate Amino Transf (AST/SGOT) 16 U/L (15-37) Alanine Aminotransferase (ALT/SGPT) 20 U/L (14-59) Alkaline Phosphatase 62 U/L (46-116) Troponin I Quantitative < 0.017 ng/mL (0.000-0.055) Total Protein 7.6 g/dL (6.4-8.2) Albumin 4.2 g/dL (3.4-5.0) Albumin/Globulin Ratio 1.2 (1.0-1.7) Lipase 263 U/L (73-393) Laboratory Tests Test 04/09/20 14:55 White Blood Count 10.3 x10^3/uL (4.0-11.0) Red Blood Count 4.17 x10^6/uL (3.50-5.40) Hemoglobin 12.4 g/dL (12.0-15.5) Hematocrit 37.5 % (36.0-47.0) Mean Corpuscular Volume 90 fL (79-100) Mean Corpuscular Hemoglobin 30 pg (25-35) Mean Corpuscular Hemoglobin Concent 33 g/dL (31-37) Red Cell Distribution Width 14.6 % (11.5-14.5) Platelet Count 267 x10^3/uL (140-400) Neutrophils (%) (Auto) 84 % (31-73) Lymphocytes (%) (Auto) 10 % (24-48) Monocytes (%) (Auto) 5 % (0-9) Eosinophils (%) (Auto) 1 % (0-3) Basophils (%) (Auto) 1 % (0-3) Neutrophils # (Auto) 8.6 x10^3/uL (1.8-7.7) Lymphocytes # (Auto) 1.1 x10^3/uL (1.0-4.8) Monocytes # (Auto) 0.5 x10^3/uL (0.0-1.1) Eosinophils # (Auto) 0.1 x10^3/uL (0.0-0.7) Basophils # (Auto) 0.1 x10^3/uL (0.0-0.2) Prothrombin Time 13.4 SEC (11.7-14.0) Prothromb Time International Ratio 1.1 (0.8-1.1) Activated Partial Thromboplast Time 34 SEC (24-38) Sodium Level 140 mmol/L (136-145) Potassium Level 8.7 mmol/L (3.5-5.1) Chloride Level 98 mmol/L (98-107) Carbon Dioxide Level 26 mmol/L (21-32) Anion Gap 16 (6-14) Blood Urea Nitrogen 107 mg/dL (7-20) Creatinine 11.5 mg/dL (0.6-1.0) Estimated GFR (Cockcroft-Gault) 3.3 BUN/Creatinine Ratio 9 (6-20) Glucose Level 122 mg/dL (70-99) Calcium Level 8.6 mg/dL (8.5-10.1) Magnesium Level 3.5 mg/dL (1.8-2.4) Total Bilirubin 0.3 mg/dL (0.2-1.0) Aspartate Amino Transf (AST/SGOT) 16 U/L (15-37) Alanine Aminotransferase (ALT/SGPT) 20 U/L (14-59) Alkaline Phosphatase 62 U/L (46-116) Troponin I Quantitative < 0.017 ng/mL (0.000-0.055) Total Protein 7.6 g/dL (6.4-8.2) Albumin 4.2 g/dL (3.4-5.0) Albumin/Globulin Ratio 1.2 (1.0-1.7) Lipase 263 U/L (73-393) VTE Prophylaxis Ordered VTE Prophylaxis Devices: Yes VTE Pharmacological Prophylaxi: Yes Assessment/Plan Assessment/Plan A/P: Hyperkalemia - bradycardia with prolonged QT and prolonged QTc interval. given calcium chloride, sodium bicarb, 1 amp D50, 10 units insulin IV, 10 of albuterol neb in the ER. To dialysis N/V/D - likely gastroenteritis. IV antiemetics. Monitor ESRD ON DIALYSIS - needs urgent dialysis given K of 8.7 Bradycardia - hold coreg Hypertension - improved overnight, held antihypertensives H/o HTN - will monitor, reconcile SNF meds - losartan, amlodipine, coreg CAD - on coreg, ASA, statin Depression - cont zoloft Acute hypoxic respiratory failure - likely 2/2 fluid overload Diastolic CHF exacerbation - cont ASA, statin. UF per dialysis sessions FEN - Renal diet PPX - heparin FULL CODE Dispo - ICU. CC time 42 min Justifications for Admission Other Justification LO ALLISON MD Apr 09, 2020 16:42
--- NOTE | 2020-04-09 17:38 | EKG ---
[facility] [address] [place] [address] Test Date: 2020-04-09 Test Time: 14:48:05 Pat Name: MARCO A HOOD Department: Room: Gender: F Director Call: : [phone] Requested By: AURELIA HERNANDEZ Order Number: [id number] Reading MD: Thierno Barnes MD Measurements Intervals [place] Rate: 45 P: 50 [place]: 216 QRS: -20 QRSD: 110 T: 66 QT: 564 QTc: 495 Interpretive Statements SINUS BRADYCARDIA LEFTWARD AXIS LEFT VENTRICULAR HYPERTROPHY PROLONGED QT ABNORMAL ECG Electronically Signed On 04-10-2020 10:24:44 CDT by Thierno Barnes MD
[2020-04-09] MEDS ORDERED: IV NORMAL SALINE 1000ML BAG 1,000 ML IV PRN ×2 (18:18)
[2020-04-09] MEDS ORDERED: DIALYSIS PATIENT. MC PRN ×2 (18:30)
[2020-04-09] MEDS ORDERED: ALBUMIN HUMAN 25% 200 ML IV PRN (18:30)
[2020-04-09] MEDS ORDERED: NITROGLYCERIN OINT 1 GM PACKET. TP PRN (21:00)
[2020-04-09] MEDS ORDERED: ONDANSETRON PF 4 MG/2 ML VIAL. IVP PRN (21:00)
[2020-04-09] MEDS ORDERED: LOPERAMIDE 2 MG CAPSULE PO PRN (21:00)
[2020-04-09] MEDS ORDERED: ACETAMINOPHEN 325 MG TABLET. PO PRN (21:00)
[2020-04-09] MEDS: SODIUM BICARBONATE 650 MG TABLET. PO SCH (21:39)
[2020-04-09] MEDS: ATORVASTATIN CALCIUM 40 MG TABLET. PO SCH (21:39)
[2020-04-09] MEDS: SEVELAMER CARBONATE 800 MG TABLET. PO SCH (21:39)
[2020-04-09] MEDS: HEPARIN for SUB-Q USE 5,000 UNIT/ML VIAL. SQ SCH (21:40)
[2020-04-09] MEDS: LABETALOL 20 MG/4 ML DISP.SYRIN. IVP PRN (22:41)
[2020-04-10] VITALS (19 sets, daily range): BP systolic 114–211; BP diastolic 42–93
--- NOTE | 2020-04-10 02:48 | NUR ---
Patient arrived to ICU from ED at 1850 via [facility] ED RNs. This RN received report from Jose BOSS DYER at start of shift due to him receiving ED report prior to shift change. Patient was attached to ICU monitors. Patient was hypertensive and bradycardic with a potassium of 8.7 after missing regularly scheduled HD today. In ICU, patient was A&O x3 and on 1.5 L NC, saturating well with clear/diminished lung sounds. S1/S2 auscultated. One patent peripheral IV present and saline locked. This RN oriented patient to unit routines, call light, bed controls, TV controls, diet (renal), and activity level (bedrest). HD was then initiated in room. This RN utilized an electron beam welder setter phone to gather admission information from patient. Paperwork from [facility] provided information regarding the patient's current medications, next of kin, and PMH. This RN went through admission questions but was unable to gather all information from patient. Pertinent information missing from admission is as follows: family medical history, suicidal ideation, and safety of living situation. Will attempt to gather this information by end of shift or pass on to day shift RN. Patient remained hypertensive throughout HD. This RN contacted Dr. Aguilar for orders; he prescribed nitroglycerin paste. The patient's SBP remained in the high 190's-low 200's. This RN contacted Dr. Aguilar once more and orders were received to start a cardene gtt. Drip was started at 5 mcg/hr and stabilized patient's SBP to 130's-140's. No upwards titration has been necessary so far. Patient is stable at this time. For further information see admission assessment and VS spreadsheet. Will continue to monitor.
[2020-04-10] MEDS: HEPARIN for SUB-Q USE 5,000 UNIT/ML VIAL. SQ SCH ×3 (05:54→20:22)
[2020-04-10] MEDS ORDERED: HYDR-3164 PO (06:13)
[2020-04-10] MEDS ORDERED: MENT118G TP (06:13)
[2020-04-10] MEDS ORDERED: NITR0.4T22 SL (06:13)
[2020-04-10] MEDS ORDERED: POLY2500 PO (06:13)
[2020-04-10] MEDS ORDERED: ACET325T21 PO (06:13)
[2020-04-10] MEDS ORDERED: CINA30TA2 PO (06:13)
[2020-04-10] MEDS ORDERED: GUAI473L15 PO (06:13)
[2020-04-10 06:52] LABS: BASO % 1 % (0-3); EOS % 1 % (0-3); HEMATOCRIT 32.1 % (36.0-47.0); HEMOGLOBIN 10.6 g/dL (12.0-15.5); LYMPH # 0.8 x10^3/uL (1.0-4.8); LYMPH % 11 % (24-48); MEAN CORPUSCULAR HEMOGLOBIN 30 pg (25-35); MEAN CORPUSCULAR HGB CONC 33 g/dL (31-37); MEAN CORPUSCULAR VOLUME 90 fL (79-100); MONO # 0.5 x10^3/uL (0.0-1.1); MONO % 7 % (0-9); NEUT % 81 % (31-73); PLATELET COUNT 224 x10^3/uL (140-400); RED BLOOD COUNT 3.56 x10^6/uL (3.50-5.40); RED CELL DISTRIBUTION WIDTH 14.4 % (11.5-14.5); WHITE BLOOD COUNT 7.4 x10^3/uL (4.0-11.0)
[2020-04-10 06:57] LABS: ALBUMIN 3.3 g/dL (3.4-5.0); ALBUMIN/GLOBULIN RATIO 1.2 (1.0-1.7); CREATININE 5.6 mg/dL (0.6-1.0); GFR 7.6; POTASSIUM 4.2 mmol/L (3.5-5.1); TOTAL BILIRUBIN 0.3 mg/dL (0.2-1.0)
[2020-04-10] MEDS ORDERED: NITROGLYCERIN SUBLINGUAL 0.4 MG BOTTLE OF 25. SL PRN (07:45)
[2020-04-10] MEDS ORDERED: HYDROcodone/APAP 5/325MG 1 TAB TABLET PO PRN (07:45)
[2020-04-10] MEDS: amLODIPine BESYLATE 10 MG TABLET PO SCH (08:12)
[2020-04-10] MEDS: SEVELAMER CARBONATE 800 MG TABLET. PO SCH ×3 (08:12→20:20)
[2020-04-10] MEDS: POLYETHYLENE GLYCOL 3350 17 GM PACKET. PO SCH (08:12)
[2020-04-10] MEDS: CINACALCET HCL 30 MG TABLET PO SCH (08:12)
[2020-04-10] MEDS: ASPIRIN ENTERIC COATED 81 MG TABLET.DR. PO SCH (08:12)
[2020-04-10] MEDS: CLOPIDOGREL BISULFATE 75 MG TABLET PO SCH (08:12)
[2020-04-10] MEDS: LOSARTAN POTASSIUM 50 MG TABLET. PO SCH ×2 (08:13→20:19)
[2020-04-10] MEDS: SERTRALINE 25 MG TABLET. PO SCH (08:13)
[2020-04-10] MEDS: SODIUM BICARBONATE 650 MG TABLET. PO SCH ×2 (08:13→20:20)
[2020-04-10] MEDS ORDERED: amLODIPine BESYLATE 10 MG TABLET PO SCH (09:00)
--- NOTE | 2020-04-10 10:58 | PDOC2 ---
CONSULT Date of Consult Date of Consult DATE: 04/10/20 TIME: 10:46 Reason for Consult Reason for Consult: HIGH K AND ESRD Referring Physician Referring Physician: KEEGAN Identification/Chief Complaint Chief Complaint N/V/D AND WEAK Source Source: Chart review History of Present Illness Reason for Visit: THIS IS A 69 YR OLD WITH N/V/D AND WEAKNESS. SHE HAS ESRD AND IS ON HD ON MWF. UNABLE TO GO TO HD DUE TO ACUTE ILLNESS. ON EVAL HER K IS 8.7 AND EKG HAD PROLONGED QT INTERVAL AND BRADYCARDIA. OTHER LABS ARE C/W ESRD. PT WAS GIVEN CA, HCO3, GLUCOSE AND INSULIN AFTER D.W ER PHYSICIAN. I RECOMMENDED ADMIT TO THE ICU. SHE HAS A LEFT FA AVF FOR HER HD. SHE IS CRITICALLY ILL ON ADMIT. Past Medical History Cardiovascular: CAD, HTN, Hyperlipidemia Pulmonary: No pertinent hx CENTRAL NERVOUS SYSTEM: Other GI: No pertinent hx Heme/Onc: Anemia NOS Hepatobiliary: No pertinent hx Psych: No pertinent hx Musculoskeletal: low back pain Rheumatologic: No pertinent hx Infectious disease: No pertinent hx Renal/: Chronic renal failure Endocrine: Diabetes Past Surgical History Past Surgical History LEFT FA RC AVF Past Surgical History: Other Family History Family History: Hypertension Social History No ALCOHOL: none Drugs: None Lives: with Family Current Problem List Problem List Problems Medical Problems: (1) ESRD (end stage renal disease) on dialysis Status: Acute (2) Gastroenteritis Status: Acute (3) Hyperkalemia Status: Acute Current Medications Current Medications Current Medications Sodium Chloride 1,000 ml @ 1,000 mls/hr 1X ONCE IV Last administered on 04/09/20at 15:22; Start 04/09/20 at 14:45; Stop 04/09/20 at 15:44; Status DC Ondansetron HCl (Zofran) 4 mg 1X ONCE IVP ; Start 04/09/20 at 14:45; Stop 04/09/20 at 14:46; Status Cancel Metoclopramide HCl (Reglan Vial) 10 mg 1X ONCE IVP Last administered on 04/09/20at 15:22; Start 04/09/20 at 14:45; Stop 04/09/20 at 14:46; Status DC Atropine Sulfate (ATROPINE 0.5mg SYRINGE) 0.5 mg 1X ONCE IV ; Start 04/09/20 at 15:30; Stop 04/09/20 at 15:20; Status DC Atropine Sulfate (ATROPINE 1mg SYRINGE) 1 mg STK-MED ONCE .ROUTE ; Start 04/09/20 at 15:20; Stop 04/09/20 at 15:20; Status DC Atropine Sulfate (ATROPINE 1mg SYRINGE) 0.5 mg 1X ONCE IV Last administered on 04/09/20at 15:22; Start 04/09/20 at 15:30; Stop 04/09/20 at 15:31; Status DC Benztropine Mesylate (Cogentin) 2 mg PRN BID PRN IV EXTRAPYRAMIDAL SIDE EFFECTS Last administered on 04/09/20at 17:24; Start 04/09/20 at 16:00 Sodium Bicarbonate (Sodium Bicarb Adult 8.4% Syr) 50 meq 1X ONCE IV Last administered on 04/09/20at 16:12; Start 04/09/20 at 16:00; Stop 04/09/20 at 16:01; Status DC Calcium Chloride (Calcium Chloride) 1,000 mg 1X ONCE IV Last administered on 04/09/20at 16:12; Start 04/09/20 at 16:00; Stop 04/09/20 at 16:01; Status DC Dextrose (Dextrose 50%-Water Syringe) 25 gm 1X ONCE IV Last administered on 04/09/20at 16:12; Start 04/09/20 at 16:00; Stop 04/09/20 at 16:01; Status DC Albuterol Sulfate (Ventolin Neb Soln) 10 mg 1X ONCE CONT NEB Last administered on 04/09/20at 16:16; Start 04/09/20 at 16:00; Stop 04/09/20 at 16:01; Status DC Insulin Human Regular (HumuLIN R VIAL) 10 unit 1X ONCE IV Last administered on 04/09/20at 16:16; Start 04/09/20 at 16:00; Stop 04/09/20 at 16:01; Status DC Sodium Chloride 1,000 ml @ 1,000 mls/hr Q1H PRN IV hypotension; Start 04/09/20 at 18:18; Stop 04/10/20 at 00:17; Status DC Albumin Human 200 ml @ 200 mls/hr 1X PRN PRN IV Hypotension; Start 04/09/20 at 18:30; Stop 04/10/20 at 00:29; Status DC Sodium Chloride 1,000 ml @ 400 mls/hr Q2H30M PRN IV PATENCY; Start 04/09/20 at 18:18; Stop 04/10/20 at 06:17; Status DC Info (PHARMACY MONITORING -- do not chart) 1 each PRN DAILY PRN MC SEE COMMENTS; Start 04/09/20 at 18:30 Info (PHARMACY MONITORING -- do not chart) 1 each PRN DAILY PRN MC SEE COMMENTS; Start 04/09/20 at 18:30 Amlodipine Besylate (Norvasc) 10 mg DAILY PO ; Start 04/10/20 at 09:00; Stop 04/09/20 at 23:32; Status DC Aspirin (Ecotrin) 81 mg DAILY PO Last administered on 04/10/20at 08:12; Start 04/10/20 at 09:00 Clopidogrel Bisulfate (Plavix) 75 mg DAILY PO Last administered on 04/10/20at 08:12; Start 04/10/20 at 09:00 Loperamide HCl (Imodium) 2 mg PRN Q2HRS PRN PO DIARRHEA; Start 04/09/20 at 21:00 Sertraline HCl (Zoloft) 25 mg DAILY PO Last administered on 04/10/20at 08:13; Start 04/10/20 at 09:00 Sevelamer Carbonate (Renvela) 2,400 mg TID PO Last administered on 04/10/20at 08:12; Start 04/09/20 at 21:00 Sodium Bicarbonate (Sodium Bicarbonate) 1,300 mg BID PO Last administered on 04/10/20at 08:13; Start 04/09/20 at 21:00 Atorvastatin Calcium (Lipitor) 40 mg QHS PO Last administered on 04/09/20at 21:39; Start 04/09/20 at 21:00 Nitroglycerin (Nitro-Bid Oint) 1 inch PRN Q6HRS PRN TP HYPERTENSION Last administered on 04/09/20at 21:33; Start 04/09/20 at 21:00 Heparin Sodium (Porcine) (Heparin Sodium) 5,000 unit Q8HRS SQ Last administered on 04/10/20at 05:54; Start 04/09/20 at 22:00 Acetaminophen (Tylenol) 650 mg PRN Q6HRS PRN PO MILD PAIN / TEMP > 100.3'F; Start 04/09/20 at 21:00 Ondansetron HCl (Zofran) 4 mg PRN Q6HRS PRN IVP NAUSEA/VOMITING; Start 04/09/20 at 21:00 Labetalol HCl (Normodyne Iv Push) 10 mg PRN Q2HR PRN IVP HYPERTENSION Last administered on 04/09/20at 22:41; Start 04/09/20 at 22:45 Nicardipine HCl 50 mg/Sodium Chloride 250 ml @ 25 mls/hr CONT PRN IV SEE I/O RECORD Last administered on 04/09/20at 23:42; Start 04/09/20 at 23:30 Cinacalcet (Sensipar) 30 mg DAILY PO Last administered on 04/10/20at 08:12; Start 04/10/20 at 09:00 Acetaminophen/ Hydrocodone Bitart (Lortab 5/325) 1 tab PRN Q6HRS PRN PO PAIN; Start 04/10/20 at 07:45 Losartan Potassium (Cozaar) 50 mg BID PO Last administered on 04/10/20at 08:13; Start 04/10/20 at 09:00 Nitroglycerin (Nitrostat) 0.4 mg PRN Q5MIN PRN SL CHEST PAIN; Start 04/10/20 at 07:45 Polyethylene Glycol (miraLAX PACKET) 17 gm DAILY PO Last administered on 04/10/20at 08:12; Start 04/10/20 at 09:00 Amlodipine Besylate (Norvasc) 10 mg DAILY PO Last administered on 04/10/20at 08:12; Start 04/10/20 at 09:00 Active Scripts Active Reported NITROGLYCERIN SubLingual (Nitroglycerin) 0.4 Mg Tab.subl 0.4 Mg SL PRN Q5MIN PRN [place] 5-325 Tablet (Acetaminophen/Hydrocodone Bitart) 1 Each Tablet 1 Tab PO PRN Q4-6HRS PRN Guaifenesin Ac Cough Syrup (Guaifenesin/Codeine Phosphate) 473 Ml Liquid 10 Ml PO Q6HRS PRN MDD 60 Milliliter(s) Biofreeze (Menthol) 118 Ml Gel..ml. 1 [place] TP QID Polyethylene Glycol 3350 2,500 Gm Powder 17 Gm PO DAILY Sensipar (Cinacalcet Hcl) 30 Mg Tablet 1 Tab PO DAILY 30 Days Acetaminophen 325 Mg Tablet 650 Mg PO TID Loperamide (Loperamide Hcl) 2 Mg Capsule 2 Mg PO PRN Sodium Bicarbonate 650 Mg Tablet 2 Tab PO BID Renvela (Sevelamer Carbonate) 800 Mg Tablet 3 Tab PO TID Zoloft (Sertraline Hcl) 25 Mg Tablet 1 Tab PO DAILY Crestor (Rosuvastatin Calcium) 10 Mg Tablet 10 Mg PO HS Losartan Potassium 50 Mg Tablet 50 Mg PO BID Clopidogrel (Clopidogrel Bisulfate) 75 Mg Tablet 1 Tab PO DAILY Carvedilol 25 Mg Tablet 25 Mg PO BIDWMEALS Aspir-Low (Aspirin) 81 Mg Tablet.dr 1 Tab PO DAILY Amlodipine Besylate 10 Mg Tablet 10 Mg PO DAILY Allergies Allergies: Coded Allergies: No Known Drug Allergies (Unverified , 10/01/18) ROS Review of System UNABLE TO OBTAIN DUE TO LETHARGY Physical Exam General: Cooperative, No acute distress HEENT: Atraumatic, PERRLA Lungs: Clear to auscultation Heart: Regular rate Abdomen: Normal bowel sounds, No tenderness Extremities: No clubbing, No edema Skin: No breakdown Neuro: Other (CONFUSED) Psych/Mental Status: Other (FLAT ) MUSCULOSKELETAL: No joint tenderness, No deformity, Other (LEFT FA AVF WITH A GOOD THRILL AND BRUIT) Vitals VITALS Vital Signs Date Time Temp Pulse Resp B/P (MAP) Pulse Ox O2 Delivery O2 Flow Rate FiO2 04/10/20 10:00 66 19 167/63 (97) 95 Nasal Cannula 1.5 04/10/20 08:00 99.2 99.2 Labs Labs Laboratory Tests Test 04/09/20 14:55 04/09/20 20:20 04/10/20 04:50 White Blood Count 10.3 x10^3/uL (4.0-11.0) 7.4 x10^3/uL (4.0-11.0) Red Blood Count 4.17 x10^6/uL (3.50-5.40) 3.56 x10^6/uL (3.50-5.40) Hemoglobin 12.4 g/dL (12.0-15.5) 10.6 g/dL (12.0-15.5) Hematocrit 37.5 % (36.0-47.0) 32.1 % (36.0-47.0) Mean Corpuscular Volume 90 fL (79-100) 90 fL (79-100) Mean Corpuscular Hemoglobin 30 pg (25-35) 30 pg (25-35) Mean Corpuscular Hemoglobin Concent 33 g/dL (31-37) 33 g/dL (31-37) Red Cell Distribution Width 14.6 % (11.5-14.5) 14.4 % (11.5-14.5) Platelet Count 267 x10^3/uL (140-400) 224 x10^3/uL (140-400) Neutrophils (%) (Auto) 84 % (31-73) 81 % (31-73) Lymphocytes (%) (Auto) 10 % (24-48) 11 % (24-48) Monocytes (%) (Auto) 5 % (0-9) 7 % (0-9) Eosinophils (%) (Auto) 1 % (0-3) 1 % (0-3) Basophils (%) (Auto) 1 % (0-3) 1 % (0-3) Neutrophils # (Auto) 8.6 x10^3/uL (1.8-7.7) 6.0 x10^3/uL (1.8-7.7) Lymphocytes # (Auto) 1.1 x10^3/uL (1.0-4.8) 0.8 x10^3/uL (1.0-4.8) Monocytes # (Auto) 0.5 x10^3/uL (0.0-1.1) 0.5 x10^3/uL (0.0-1.1) Eosinophils # (Auto) 0.1 x10^3/uL (0.0-0.7) 0.0 x10^3/uL (0.0-0.7) Basophils # (Auto) 0.1 x10^3/uL (0.0-0.2) 0.0 x10^3/uL (0.0-0.2) Prothrombin Time 13.4 SEC (11.7-14.0) Prothromb Time International Ratio 1.1 (0.8-1.1) Activated Partial Thromboplast Time 34 SEC (24-38) Sodium Level 140 mmol/L (136-145) 141 mmol/L (136-145) Potassium Level 8.7 mmol/L (3.5-5.1) 3.9 mmol/L (3.5-5.1) 4.2 mmol/L (3.5-5.1) Chloride Level 98 mmol/L (98-107) 99 mmol/L (98-107) Carbon Dioxide Level 26 mmol/L (21-32) 33 mmol/L (21-32) Anion Gap 16 (6-14) 9 (6-14) Blood Urea Nitrogen 107 mg/dL (7-20) 30 mg/dL (7-20) Creatinine 11.5 mg/dL (0.6-1.0) 5.6 mg/dL (0.6-1.0) Estimated GFR (Cockcroft-Gault) 3.3 7.6 BUN/Creatinine Ratio 9 (6-20) 5 (6-20) Glucose Level 122 mg/dL (70-99) 136 mg/dL (70-99) Calcium Level 8.6 mg/dL (8.5-10.1) 8.0 mg/dL (8.5-10.1) Magnesium Level 3.5 mg/dL (1.8-2.4) Total Bilirubin 0.3 mg/dL (0.2-1.0) 0.3 mg/dL (0.2-1.0) Aspartate Amino Transf (AST/SGOT) 16 U/L (15-37) 17 U/L (15-37) Alanine Aminotransferase (ALT/SGPT) 20 U/L (14-59) 17 U/L (14-59) Alkaline Phosphatase 62 U/L (46-116) 56 U/L (46-116) Troponin I Quantitative < 0.017 ng/mL (0.000-0.055) 0.068 ng/mL (0.000-0.055) Total Protein 7.6 g/dL (6.4-8.2) 6.0 g/dL (6.4-8.2) Albumin 4.2 g/dL (3.4-5.0) 3.3 g/dL (3.4-5.0) Albumin/Globulin Ratio 1.2 (1.0-1.7) 1.2 (1.0-1.7) Lipase 263 U/L (73-393) Laboratory Tests Test 04/09/20 14:55 04/09/20 20:20 04/10/20 04:50 White Blood Count 10.3 x10^3/uL (4.0-11.0) 7.4 x10^3/uL (4.0-11.0) Red Blood Count 4.17 x10^6/uL (3.50-5.40) 3.56 x10^6/uL (3.50-5.40) Hemoglobin 12.4 g/dL (12.0-15.5) 10.6 g/dL (12.0-15.5) Hematocrit 37.5 % (36.0-47.0) 32.1 % (36.0-47.0) Mean Corpuscular Volume 90 fL (79-100) 90 fL (79-100) Mean Corpuscular Hemoglobin 30 pg (25-35) 30 pg (25-35) Mean Corpuscular Hemoglobin Concent 33 g/dL (31-37) 33 g/dL (31-37) Red Cell Distribution Width 14.6 % (11.5-14.5) 14.4 % (11.5-14.5) Platelet Count 267 x10^3/uL (140-400) 224 x10^3/uL (140-400) Neutrophils (%) (Auto) 84 % (31-73) 81 % (31-73) Lymphocytes (%) (Auto) 10 % (24-48) 11 % (24-48) Monocytes (%) (Auto) 5 % (0-9) 7 % (0-9) Eosinophils (%) (Auto) 1 % (0-3) 1 % (0-3) Basophils (%) (Auto) 1 % (0-3) 1 % (0-3) Neutrophils # (Auto) 8.6 x10^3/uL (1.8-7.7) 6.0 x10^3/uL (1.8-7.7) Lymphocytes # (Auto) 1.1 x10^3/uL (1.0-4.8) 0.8 x10^3/uL (1.0-4.8) Monocytes # (Auto) 0.5 x10^3/uL (0.0-1.1) 0.5 x10^3/uL (0.0-1.1) Eosinophils # (Auto) 0.1 x10^3/uL (0.0-0.7) 0.0 x10^3/uL (0.0-0.7) Basophils # (Auto) 0.1 x10^3/uL (0.0-0.2) 0.0 x10^3/uL (0.0-0.2) Prothrombin Time 13.4 SEC (11.7-14.0) Prothromb Time International Ratio 1.1 (0.8-1.1) Activated Partial Thromboplast Time 34 SEC (24-38) Sodium Level 140 mmol/L (136-145) 141 mmol/L (136-145) Potassium Level 8.7 mmol/L (3.5-5.1) 3.9 mmol/L (3.5-5.1) 4.2 mmol/L (3.5-5.1) Chloride Level 98 mmol/L (98-107) 99 mmol/L (98-107) Carbon Dioxide Level 26 mmol/L (21-32) 33 mmol/L (21-32) Anion Gap 16 (6-14) 9 (6-14) Blood Urea Nitrogen 107 mg/dL (7-20) 30 mg/dL (7-20) Creatinine 11.5 mg/dL (0.6-1.0) 5.6 mg/dL (0.6-1.0) Estimated GFR (Cockcroft-Gault) 3.3 7.6 BUN/Creatinine Ratio 9 (6-20) 5 (6-20) Glucose Level 122 mg/dL (70-99) 136 mg/dL (70-99) Calcium Level 8.6 mg/dL (8.5-10.1) 8.0 mg/dL (8.5-10.1) Magnesium Level 3.5 mg/dL (1.8-2.4) Total Bilirubin 0.3 mg/dL (0.2-1.0) 0.3 mg/dL (0.2-1.0) Aspartate Amino Transf (AST/SGOT) 16 U/L (15-37) 17 U/L (15-37) Alanine Aminotransferase (ALT/SGPT) 20 U/L (14-59) 17 U/L (14-59) Alkaline Phosphatase 62 U/L (46-116) 56 U/L (46-116) Troponin I Quantitative < 0.017 ng/mL (0.000-0.055) 0.068 ng/mL (0.000-0.055) Total Protein 7.6 g/dL (6.4-8.2) 6.0 g/dL (6.4-8.2) Albumin 4.2 g/dL (3.4-5.0) 3.3 g/dL (3.4-5.0) Albumin/Globulin Ratio 1.2 (1.0-1.7) 1.2 (1.0-1.7) Lipase 263 U/L (73-393) Assessment/Plan Assessment/Plan IMP LIFE THREATENING HYPERKALEMIA ENCEPHALOPATHY PROB GASTROENTERITIS DECONDITIONING BRADYCARDIA CHF-DIASTOLIC ACUTE ESRD-MWF ANEMIA OF ESRD CRITICALLY ILL PT PLAN ICU ADMIT TEMPORIZING MEASURES DONE PT HAD EMERGENCY HD LAST EVENING ENC LOW K DIET JOE NEEDED HD MWF JOSAFAT AMEZCUA MD Apr 10, 2020 10:58
--- NOTE | 2020-04-10 11:53 | PDOC ---
[employer] PROGRESS NOTE Date of Service DOS: DATE: 04/10/20 TIME: 11:50 Chief Complaint Chief Complaint Hyperkalemia Nausea vomiting probably from gastroparesis ESRD ON DIALYSIS Bradycardia End-stage renal disease Hypertension CAD Depression Acute hypoxic respiratory failure CHF acute on chronic systolic and diastolic History of Present Illness History of Present Illness 04/10/2020 Patient seen and examined Her nausea vomiting are a little bit improved Discussed with case management Discussed with RN Chart reviewed Her blood pressure is a little high at 171/67 She is on losartan Norvasc and Nitropaste Vitals/I&O Vitals/I&O: Vital Signs Date Time Temp Pulse Resp B/P (MAP) Pulse Ox O2 Delivery O2 Flow Rate FiO2 04/10/20 11:43 99.4 64 19 158/67 (97) 90 Nasal Cannula 1.5 99.4 I & O 04/09/20 04/09/20 04/10/20 15:00 23:00 07:00 Intake Total 1000 ml 227 ml Output Total 0 ml 0 ml Balance 1000 ml 227 ml Physical Exam General: Cooperative, No acute distress Heart: Regular rate Lungs: Clear, Wheezing Abdomen: Normal bowel sounds, No tenderness Extremities: No clubbing, No edema Skin: No breakdown Labs Labs: Laboratory Tests Test 04/09/20 14:55 04/09/20 20:20 04/10/20 04:50 White Blood Count 10.3 x10^3/uL (4.0-11.0) 7.4 x10^3/uL (4.0-11.0) Red Blood Count 4.17 x10^6/uL (3.50-5.40) 3.56 x10^6/uL (3.50-5.40) Hemoglobin 12.4 g/dL (12.0-15.5) 10.6 g/dL (12.0-15.5) Hematocrit 37.5 % (36.0-47.0) 32.1 % (36.0-47.0) Mean Corpuscular Volume 90 fL (79-100) 90 fL (79-100) Mean Corpuscular Hemoglobin 30 pg (25-35) 30 pg (25-35) Mean Corpuscular Hemoglobin Concent 33 g/dL (31-37) 33 g/dL (31-37) Red Cell Distribution Width 14.6 % (11.5-14.5) 14.4 % (11.5-14.5) Platelet Count 267 x10^3/uL (140-400) 224 x10^3/uL (140-400) Neutrophils (%) (Auto) 84 % (31-73) 81 % (31-73) Lymphocytes (%) (Auto) 10 % (24-48) 11 % (24-48) Monocytes (%) (Auto) 5 % (0-9) 7 % (0-9) Eosinophils (%) (Auto) 1 % (0-3) 1 % (0-3) Basophils (%) (Auto) 1 % (0-3) 1 % (0-3) Neutrophils # (Auto) 8.6 x10^3/uL (1.8-7.7) 6.0 x10^3/uL (1.8-7.7) Lymphocytes # (Auto) 1.1 x10^3/uL (1.0-4.8) 0.8 x10^3/uL (1.0-4.8) Monocytes # (Auto) 0.5 x10^3/uL (0.0-1.1) 0.5 x10^3/uL (0.0-1.1) Eosinophils # (Auto) 0.1 x10^3/uL (0.0-0.7) 0.0 x10^3/uL (0.0-0.7) Basophils # (Auto) 0.1 x10^3/uL (0.0-0.2) 0.0 x10^3/uL (0.0-0.2) Prothrombin Time 13.4 SEC (11.7-14.0) Prothromb Time International Ratio 1.1 (0.8-1.1) Activated Partial Thromboplast Time 34 SEC (24-38) Sodium Level 140 mmol/L (136-145) 141 mmol/L (136-145) Potassium Level 8.7 mmol/L (3.5-5.1) 3.9 mmol/L (3.5-5.1) 4.2 mmol/L (3.5-5.1) Chloride Level 98 mmol/L (98-107) 99 mmol/L (98-107) Carbon Dioxide Level 26 mmol/L (21-32) 33 mmol/L (21-32) Anion Gap 16 (6-14) 9 (6-14) Blood Urea Nitrogen 107 mg/dL (7-20) 30 mg/dL (7-20) Creatinine 11.5 mg/dL (0.6-1.0) 5.6 mg/dL (0.6-1.0) Estimated GFR (Cockcroft-Gault) 3.3 7.6 BUN/Creatinine Ratio 9 (6-20) 5 (6-20) Glucose Level 122 mg/dL (70-99) 136 mg/dL (70-99) Calcium Level 8.6 mg/dL (8.5-10.1) 8.0 mg/dL (8.5-10.1) Magnesium Level 3.5 mg/dL (1.8-2.4) Total Bilirubin 0.3 mg/dL (0.2-1.0) 0.3 mg/dL (0.2-1.0) Aspartate Amino Transf (AST/SGOT) 16 U/L (15-37) 17 U/L (15-37) Alanine Aminotransferase (ALT/SGPT) 20 U/L (14-59) 17 U/L (14-59) Alkaline Phosphatase 62 U/L (46-116) 56 U/L (46-116) Troponin I Quantitative < 0.017 ng/mL (0.000-0.055) 0.068 ng/mL (0.000-0.055) Total Protein 7.6 g/dL (6.4-8.2) 6.0 g/dL (6.4-8.2) Albumin 4.2 g/dL (3.4-5.0) 3.3 g/dL (3.4-5.0) Albumin/Globulin Ratio 1.2 (1.0-1.7) 1.2 (1.0-1.7) Lipase 263 U/L (73-393) Assessment and Plan Assessmemt and Plan Problems Medical Problems: (1) ESRD (end stage renal disease) on dialysis Status: Acute (2) Gastroenteritis Status: Acute (3) Hyperkalemia Status: Acute Hyperkalemia - bradycardia with prolonged QT and prolonged QTc interval. given calcium chloride, sodium bicarb, 1 amp D50, 10 units insulin IV, 10 of albuterol neb in the ER. To dialysis N/V/D - likely gastroenteritis. IV antiemetics. Monitor ESRD ON DIALYSIS -she got urgent dialysis given K of 8.7 Bradycardia - hold coreg Hypertension - improved overnight, held antihypertensives H/o HTN - will monitor, reconcile SNF meds - losartan, amlodipine, coreg CAD - on coreg, ASA, statin Depression - cont zoloft Acute hypoxic respiratory failure - likely 2/2 fluid overload resolving Diastolic CHF exacerbation - cont ASA, statin. UF per dialysis sessions Transfer out of ICU Home meds DVT prophylaxis Full code Appreciate subspecialist input Hope to discharge in a day or 2 Comment Review of Relevant I have reviewed the following items shine (where applicable) has been applied. Medications: Current Medications Medications (Trade) Dose Ordered Sig/Mic Route PRN Reason Start Time Stop Time Status Last Admin Dose Admin Sodium Chloride 1,000 ml @ 1,000 mls/hr 1X ONCE IV 04/09/20 14:45 04/09/20 15:44 DC 04/09/20 15:22 Metoclopramide HCl (Reglan Vial) 10 mg 1X ONCE IVP 04/09/20 14:45 04/09/20 14:46 DC 04/09/20 15:22 Atropine Sulfate (ATROPINE 1mg SYRINGE) 0.5 mg 1X ONCE IV 04/09/20 15:30 04/09/20 15:31 DC 04/09/20 15:22 Benztropine Mesylate (Cogentin) 2 mg PRN BID PRN IV EXTRAPYRAMIDAL SIDE EFFECTS 04/09/20 16:00 04/09/20 17:24 Sodium Bicarbonate (Sodium Bicarb Adult 8.4% Syr) 50 meq 1X ONCE IV 04/09/20 16:00 04/09/20 16:01 DC 04/09/20 16:12 Calcium Chloride (Calcium Chloride) 1,000 mg 1X ONCE IV 04/09/20 16:00 04/09/20 16:01 DC 04/09/20 16:12 Dextrose (Dextrose 50%-Water Syringe) 25 gm 1X ONCE IV 04/09/20 16:00 04/09/20 16:01 DC 04/09/20 16:12 Albuterol Sulfate (Ventolin Neb Soln) 10 mg 1X ONCE CONT NEB 04/09/20 16:00 04/09/20 16:01 DC 04/09/20 16:16 Insulin Human Regular (HumuLIN R VIAL) 10 unit 1X ONCE IV 04/09/20 16:00 04/09/20 16:01 DC 04/09/20 16:16 Aspirin (Ecotrin) 81 mg DAILY PO 04/10/20 09:00 04/10/20 08:12 Clopidogrel Bisulfate (Plavix) 75 mg DAILY PO 04/10/20 09:00 04/10/20 08:12 Sertraline HCl (Zoloft) 25 mg DAILY PO 04/10/20 09:00 04/10/20 08:13 Sevelamer Carbonate (Renvela) 2,400 mg TID PO 04/09/20 21:00 04/10/20 08:12 Sodium Bicarbonate (Sodium Bicarbonate) 1,300 mg BID PO 04/09/20 21:00 04/10/20 08:13 Atorvastatin Calcium (Lipitor) 40 mg QHS PO 04/09/20 21:00 04/09/20 21:39 Nitroglycerin (Nitro-Bid Oint) 1 inch PRN Q6HRS PRN TP HYPERTENSION 04/09/20 21:00 04/09/20 21:33 Heparin Sodium (Porcine) (Heparin Sodium) 5,000 unit Q8HRS SQ 04/09/20 22:00 04/10/20 05:54 Labetalol HCl (Normodyne Iv Push) 10 mg PRN Q2HR PRN IVP HYPERTENSION 04/09/20 22:45 04/09/20 22:41 Nicardipine HCl 50 mg/Sodium Chloride 250 ml @ 25 mls/hr CONT PRN IV SEE I/O RECORD 04/09/20 23:30 04/09/20 23:42 Cinacalcet (Sensipar) 30 mg DAILY PO 04/10/20 09:00 04/10/20 08:12 Losartan Potassium (Cozaar) 50 mg BID PO 04/10/20 09:00 04/10/20 08:13 Polyethylene Glycol (miraLAX PACKET) 17 gm DAILY PO 04/10/20 09:00 04/10/20 08:12 Amlodipine Besylate (Norvasc) 10 mg DAILY PO 04/10/20 09:00 04/10/20 08:12 Justifications for Admission Other Justification CASTLE,NIAL K III DO Apr 10, 2020 11:53
[2020-04-10 12:26] LABS: BILIRUBIN,URINE NEGATIVE (NEG); CLARITY,URINE CLOUDY; COLOR,URINE YELLOW; PH,URINE >8.5 (<5.0-8.0); PROTEIN,URINE >=300 mg/dL (NEG-TRACE); UROBILINOGEN,URINE 0.2 mg/dL (0.2 mg/dL)
[2020-04-10 12:27] LABS: NITRITE,URINE NEGATIVE (NEG)
[2020-04-10 12:28] LABS: BACTERIA,URINE MODERATE /HPF (0-FEW)
--- NOTE | 2020-04-10 14:36 | NUR ---
SS following for discharge planning. SS reviewed pt chart and discussed with pt RN. Pt is from [facility], ; fax [phone]. Pt is currently requiring oxygen. Pt has outpatient dialysis at [facility], ; fax [phone], Thursday, Thursday, and Thursday. COVID19 test requested for placement. Pt transferring to room 210. SS will continue to follow for discharge planning.
[2020-04-10] MEDS: ATORVASTATIN CALCIUM 40 MG TABLET. PO SCH (20:20)
[2020-04-11 02:17] VITALS: BP 188/56
[2020-04-11 03:42] LABS: CALCIUM 8.1 mg/dL (8.5-10.1); CREATININE 8.3 mg/dL (0.6-1.0); GFR 4.8; POTASSIUM 4.6 mmol/L (3.5-5.1)
[2020-04-11] MEDS: HEPARIN for SUB-Q USE 5,000 UNIT/ML VIAL. SQ SCH ×2 (06:27→16:25)
[2020-04-11 07:00] VITALS: BP 192/64
[2020-04-11] MEDS ORDERED: IV NORMAL SALINE 1000ML BAG 1,000 ML IV PRN ×2 (08:03)
[2020-04-11] MEDS ORDERED: DIALYSIS PATIENT. MC PRN ×2 (08:15)
[2020-04-11] MEDS ORDERED: ALBUMIN HUMAN 25% 200 ML IV PRN (08:15)
[2020-04-11] MEDS: SEVELAMER CARBONATE 800 MG TABLET. PO SCH ×2 (09:00→15:18)
--- NOTE | 2020-04-11 09:40 | SNU/HH DC ---
DISCHARGE WITH HOME HEALTH DISCHARGE INFORMATION: Final Diagnosis: Problems Medical Problems: (1) ESRD (end stage renal disease) on dialysis Status: Acute (2) Gastroenteritis Status: Acute (3) Hyperkalemia Status: Acute Condition on Discharge: Stable CODE STATUS: Code Status: Full HOME HEALTH: Face to Face: I certify this patient is under my care and that I, or a nurse practitioner or physician's court assistant working with me, had a face to face encounter that meets the physician face to face encounter requirements with this patient on []. 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 POST DISCHARGE ORDERS: Activity Instructions for Disc: Activity as tolerated Weight Bearing Status after Di: No restrictions DIET AFTER DISCHARGE: Renal CHECKS AFTER DISCHARGE: Checks after discharge: Check blood press - daily, Check blood sugar, ac/hs, Weigh Yourself Daily TREATMENT/EQUIPMENT ORDERS: Adaptive Equipment Issued: None CERTIFICATION STATEMENT: Certification Statement: Certification Statement: Based on the above finding, I certify that this patient is confined to the home and needs intermittent longterm care, physical therapy and/or speech therapy, or continues to need occupational therapy.~ This patient is under my care, and I have initiated the establishment of the plan of care.~ This patient will be followed by myself or a community physician who will periodically review the plan of care. Home Meds Reported Medications Nitroglycerin (NITROGLYCERIN SubLingual) 0.4 Mg Tab.subl, 0.4 MG SL PRN Q5MIN PRN for CHEST PAIN, BOTTLE 04/10/20 Hydrocodone/Apap 5-325 (NORCO 5-325 TABLET) 1 Each Tablet, 1 TAB PO PRN Q4-6HRS PRN for PAIN, TAB 0 Refills 04/10/20 Guaifenesin/Codeine Phosphate (GUAIFENESIN AC COUGH SYRUP) 473 Ml Liquid, 10 ML PO Q6HRS PRN for cough and congestion MDD 60 Milliliter(s), #240 ML 0 Refills 04/10/20 Menthol (BIOFREEZE) 118 Ml Gel..ml., 1 ERICKA TP QID for Shoulder Discomfort , #118 ML 0 Refills 04/10/20 Polyethylene Glycol 3350 (POLYETHYLENE GLYCOL 3350) 2,500 Gm Powder, 17 GM PO DAILY for constipation, #255 GM 0 Refills 04/10/20 Cinacalcet Hcl (SENSIPAR) 30 Mg Tablet, 1 TAB PO DAILY for ESRD for 30 Days, #30 TAB 0 Refills 04/10/20 Acetaminophen (ACETAMINOPHEN) 325 Mg Tablet, 650 MG PO TID for pain, TAB 04/10/20 Loperamide Hcl (LOPERAMIDE) 2 Mg Capsule, 2 MG PO PRN for DIARRHEA, CAP 10/01/18 Sodium Bicarbonate (SODIUM BICARBONATE) 650 Mg Tablet, 2 TAB PO BID, #60 TAB 5 Refills 10/01/18 Sevelamer Carbonate (RENVELA) 800 Mg Tablet, 3 TAB PO TID, #810 TAB 3 Refills 10/01/18 Sertraline Hcl (ZOLOFT) 25 Mg Tablet, 1 TAB PO DAILY, #30 TAB 2 Refills 10/01/18 Rosuvastatin Calcium (CRESTOR) 10 Mg Tablet, 10 MG PO HS for FOR CHOLESTEROL, #30 TAB 0 Refills 10/01/18 Losartan Potassium (LOSARTAN POTASSIUM) 50 Mg Tablet, 50 MG PO BID for HYPERTENSION, TAB 10/01/18 Clopidogrel Bisulfate (CLOPIDOGREL) 75 Mg Tablet, 1 TAB PO DAILY, #90 TAB 1 Refill 10/01/18 Carvedilol (CARVEDILOL) 25 Mg Tablet, 25 MG PO BIDWMEALS for CARDIAC, TAB 10/01/18 Aspirin (ASPIR-LOW) 81 Mg Tablet.dr, 1 TAB PO DAILY, #30 TAB 3 Refills 10/01/18 Amlodipine Besylate (AMLODIPINE BESYLATE) 10 Mg Tablet, 10 MG PO DAILY, TAB 10/01/18 MAYRA PLEITEZ III DO Apr 11, 2020 09:40
--- NOTE | 2020-04-11 10:31 | PDOC ---
[facility] PROGRESS NOTE Date of Service DOS: DATE: 04/11/20 TIME: 10:27 Chief Complaint Chief Complaint Hyperkalemia Nausea vomiting probably from gastroparesis ESRD ON DIALYSIS Bradycardia End-stage renal disease Hypertension CAD Depression Acute hypoxic respiratory failure CHF acute on chronic systolic and diastolic History of Present Illness History of Present Illness 04/11/2020 Pt seen and examined CONNER RN CONNER case management Dialysis today 04/10/2020 Patient seen and examined Her nausea vomiting are a little bit improved Discussed with case management Discussed with RN Chart reviewed Her blood pressure is a little high at 171/67 She is on losartan Norvasc and Nitropaste Vitals/I&O Vitals/I&O: Vital Signs Date Time Temp Pulse Resp B/P (MAP) Pulse Ox O2 Delivery O2 Flow Rate FiO2 04/11/20 07:00 98.5 56 19 192/64 (106) 98 Nasal Cannula 2.0 98.5 I & O 04/10/20 04/10/20 04/11/20 15:00 23:00 07:00 Intake Total 120 ml 50 ml Output Total 10 ml Balance -10 ml 120 ml 50 ml Physical Exam General: Cooperative, No acute distress Heart: Regular rate Lungs: Clear, Wheezing Abdomen: Normal bowel sounds, No tenderness Extremities: No clubbing, No edema Skin: No breakdown Labs Labs: Laboratory Tests Test 04/10/20 11:43 04/11/20 03:10 Urine Collection Type Unknown Urine Color Yellow Urine Clarity Cloudy Urine pH >8.5 (<5.0-8.0) Urine Specific [place] 1.020 (1.000-1.030) Urine Protein >=300 mg/dL (NEG-TRACE) Urine Glucose (UA) 250 mg/dL (NEG) Urine Ketones (Stick) Negative mg/dL (NEG) Urine Blood Moderate (NEG) Urine Nitrite Negative (NEG) Urine Bilirubin Negative (NEG) Urine Urobilinogen Dipstick 0.2 mg/dL (0.2 mg/dL) Urine Leukocyte Esterase Moderate (NEG) Urine RBC 3-5 /HPF (0-2) Urine WBC 5-10 /HPF (0-4) Urine Squamous Epithelial Cells Many /LPF Urine Transitional Epithelial Cells Occ /LPF Urine Renal Epithelial Cells Occ /LPF Urine Bacteria Moderate /HPF (0-FEW) Sodium Level 141 mmol/L (136-145) Potassium Level 4.6 mmol/L (3.5-5.1) Chloride Level 100 mmol/L (98-107) Carbon Dioxide Level 31 mmol/L (21-32) Anion Gap 10 (6-14) Blood Urea Nitrogen 50 mg/dL (7-20) Creatinine 8.3 mg/dL (0.6-1.0) Estimated GFR (Cockcroft-Gault) 4.8 Glucose Level 92 mg/dL (70-99) Calcium Level 8.1 mg/dL (8.5-10.1) Review of Systems Review of Systems: No signs of digital clubbing, cyanosis, or SOB noted. Assessment and Plan Assessmemt and Plan Problems Medical Problems: (1) ESRD (end stage renal disease) on dialysis Status: Acute (2) Gastroenteritis Status: Acute (3) Hyperkalemia Status: Acute Nausea vomiting probably from gastroparesis Bradycardia Hypertension CAD Depression Acute hypoxic respiratory failure CHF acute on chronic systolic and diastolic Plan: Home meds DVT prophylaxis Cardiac monitoring Full code Appreciate subspecialist input Discharge disposition pending Comment Review of Relevant I have reviewed the following items shine (where applicable) has been applied. Justifications for Admission Other Justification MAYRA PLEITEZ III DO Apr 11, 2020 10:31
[2020-04-11] MEDS: LOSARTAN POTASSIUM 50 MG TABLET. PO SCH (10:45)
[2020-04-11] MEDS: amLODIPine BESYLATE 10 MG TABLET PO SCH (10:45)
--- NOTE | 2020-04-11 12:45 | NUR ---
SS following up with discharge planning. SS reviewed pt chart and discussed with pt RN. Pt is currently requiring oxygen. COVID19 test pending. Pt is resident from [facility], ; fax [phone]. Discharge orders for home healthcare received. SS phoned and faxed discharge orders and clinical to [facility]. SS phoned and faxed discharge orders and referral to [facility], ; fax [phone]. SS phoned and faxed discharge orders and clinical to [facility], ; fax [phone]. SS currently awaiting COVID19 test result for facility. SS will continue to follow for discharge planning.
--- NOTE | 2020-04-11 12:52 | PDOC ---
Renal-Progress Notes Subjective Notes Notes FEELING MUCH BETTER History of Present Illness Hx of present illness STABLE Vitals Vitals Vital Signs Date Time Temp Pulse Resp B/P (MAP) Pulse Ox O2 Delivery O2 Flow Rate FiO2 04/11/20 10:45 63 194/81 04/11/20 07:00 98.5 19 98 Nasal Cannula 2.0 98.5 Weight Weight [ ] I.O. Intake and Output Intake and Output 04/11/20 07:00 Intake Total 170 ml Output Total 10 ml Balance 160 ml Intake Oral 170 ml Output Urine Total 10 ml # Voids 1 Labs Labs Laboratory Tests Test 04/10/20 16:00 04/11/20 03:10 Coronavirus (PCR) Not detected (Not Detected) Sodium Level 141 mmol/L (136-145) Potassium Level 4.6 mmol/L (3.5-5.1) Chloride Level 100 mmol/L (98-107) Carbon Dioxide Level 31 mmol/L (21-32) Anion Gap 10 (6-14) Blood Urea Nitrogen 50 mg/dL (7-20) Creatinine 8.3 mg/dL (0.6-1.0) Estimated GFR (Cockcroft-Gault) 4.8 Glucose Level 92 mg/dL (70-99) Calcium Level 8.1 mg/dL (8.5-10.1) Review of Systems Constitutional: yes: alert, oriented Ears/Nose/Throat: Yes: no symptom reported Eyes: Yes: no symptom reported Pulmonary: Yes no symptom reported Cardiovascular: Yes no symptom reported Gastrointestional: Yes: nausea Genitourinary: Yes: no symptom reported Musculoskeletal: Yes: no symptom reported Skin: Yes no symptom reported Psychiatric/Neurological: Yes: no symptom reported Endocrine: Yes: no symptom reported Physical Exam General Appearance: no apparent distress Skin: warm Respiratory: bilateral CTA Heart: S1S2 Abdomen: soft, bowel sounds present Genitourinary: bladder flat Extremities: pulses present Neurology: alert, oriented Assessment Assessment IMP LIFE THREATENING HYPERKALEMIA-RESOLVED ENCEPHALOPATHY-RESOLVED PROB GASTROENTERITIS-IMPROVED DECONDITIONING-BETTER BRADYCARDIA-RESOLVED CHF-DIASTOLIC ACUTE-RESOLVED ESRD-MWF ANEMIA OF ESRD CRITICALLY ILL PT-IMPROVED AND OUT OF ICU PLAN HD TODAY UF TO DW ENC LOW K DIET JOE NEEDED HD MWF JOSAFAT AMEZCUA MD Apr 11, 2020 12:52
[2020-04-11] MEDS: CINACALCET HCL 30 MG TABLET PO SCH (12:53)
[2020-04-11] MEDS: CLOPIDOGREL BISULFATE 75 MG TABLET PO SCH (12:53)
[2020-04-11] MEDS: ASPIRIN ENTERIC COATED 81 MG TABLET.DR. PO SCH (12:53)
[2020-04-11] MEDS: SERTRALINE 25 MG TABLET. PO SCH (12:53)
[2020-04-11] MEDS: SODIUM BICARBONATE 650 MG TABLET. PO SCH (12:53)
[2020-04-11] MEDS: POLYETHYLENE GLYCOL 3350 17 GM PACKET. PO SCH (12:54)
--- NOTE | 2020-04-11 13:38 | NUR ---
SS following up with discharge planning. COVID19 negative. SS phoned and faxed COVID19 results to [facility]. SS was notified that pt does not have home oxygen at facility. Six minute walk ordered. SS will continue to follow for discharge planning.
[2020-04-11 15:00] VITALS: BP 173/63
[2020-04-11 15:18] VITALS: BP 173/63
[2020-04-11] MEDS: LABETALOL 20 MG/4 ML DISP.SYRIN. IVP PRN (15:18)
--- NOTE | 2020-04-11 16:48 | NUR ---
SS following up with discharge planning. Script received for two liters of oxygen with exertion. SS phoned and faxed oxygen order to [facility], ; fax [phone]. SS discussed with Yana at [facility]. Oxygen tank being delivered to pt room for discharge. Pt will discharge today and return to [facility] between 2030 and 2100 via [facility]. Pt and pt's RN notified. Voicemail left for pt's family.
--- NOTE | 2020-04-11 22:30 | NUR ---
Pt discharged via [facility] and wheelchair with 2LNC homej O2 bottle with her. All personal belongings with patient. Larisa Seo via phone as patient d/cd and Larisa Pickard called back to report that oxygen concentrator is set up in pt apartment at [facility].
== END 2020-04-11 21:29 | disposition home or self-care (01) | DRG 291 ==
LOC: ER 14:27 → ED HOLD 16:21 → 1 WEST ICU 18:42 → 2 NORTH 04-10 14:47
PROVIDERS: ADMIT Internal Medicine; ATTEND Internal Medicine
PROC: 5A1D70Z Performance of Urinary Filtration, Intermittent, Less than 6 Hours Per Day (ICD-10-PCS; principal; 2020-04-09)
PROC: 5A1D70Z Performance of Urinary Filtration, Intermittent, Less than 6 Hours Per Day (ICD-10-PCS; 2020-04-11)
DX: I13.2 Hypertensive heart and chronic kidney disease with heart failure and with stage 5 chronic kidney disease, or end stage renal disease (principal); N18.6 End stage renal disease; J96.01 Acute respiratory failure with hypoxia; I50.43 Acute on chronic combined systolic (congestive) and diastolic (congestive) heart failure; G93.41 Metabolic encephalopathy; E87.5 Hyperkalemia; K52.9 Noninfective gastroenteritis and colitis, unspecified; E11.43 Type 2 diabetes mellitus with diabetic autonomic (poly)neuropathy; Z20.828 Contact with and (suspected) exposure to other viral communicable diseases; I25.10 Atherosclerotic heart disease of native coronary artery without angina pectoris; E78.5 Hyperlipidemia, unspecified; R00.1 Bradycardia, unspecified; E11.22 Type 2 diabetes mellitus with diabetic chronic kidney disease; D63.1 Anemia in chronic kidney disease; K31.84 Gastroparesis; F32.9 Major depressive disorder, single episode, unspecified; I25.2 Old myocardial infarction; Z91.15 Patient's noncompliance with renal dialysis; Z99.2 Dependence on renal dialysis; Z82.49 Family history of ischemic heart disease and other diseases of the circulatory system
CPT/HCPCS: 36415; 80048; 80053; 81001; 83690; 83735; 84132; 84484; 85025; 85610; 85730; 93005; 94640; 94760; J0461; J0515; J1644; J1815; J2765; J3490; J7030; J7050; U0003; G0378; J7613

== ENCOUNTER → 2021-02-05 | Outpatient (CLI) | payer OTHER, MEDICAID ==
[2020-12-31 13:07] VITALS: BP 167/72
[~2021-02-05] MED LIST changes: +ACET325T21 PO; +CINA30TA24 PO; +GUAI473L15 PO; +HYDR-3164 PO; -ISOS30TA4 PO; +ISOS30TA68 PO; +MENT118G TP; +NITR0.4T22 SL; +ONDA-84 PO; +POLY2500 PO; +ZOLPIDEM 5 MG TABLET. PO ONE
--- NOTE | 2021-02-06 11:51 | SLEEP ---
DATE OF STUDY: 02/05/2021 SLEEP STUDY REFERRING PHYSICIAN: Giovanna Holley MD The patient is a 70-year-old who weighs 128 pounds with a BMI of 24. The patient's Macon score was 4. The patient underwent split night study performed at [facility]. During the night study, the patient spent 544 minutes in bed and slept for 312 minutes with a low sleep efficiency of 57%. Sleep latency was 58 minutes with a REM latency of 395 minutes. Sleep architecture showed increased stage 1 and stage 2 sleep, absent slow wave and normal REM sleep. During the initial diagnostic portion of the study, the patient slept for 210 minutes. During that time, there were 16 obstructive apneas, 47 hypopneas, no mixed apnea, 1 central apnea. The patient's AHI was 18 per hour. Supine AHI 29 per hour. REM sleep was not seen during the diagnostic portion. Nocturnal oximetry study revealed an average oxygen saturation of 76% with a lowest of 61%. A 78% of time oxygen saturation remained between 70 and 79% on 21% of time between 60 and 69%. EKG monitoring revealed mean heart rate of 66 beats per minute. No arrhythmias observed. No PLMS were observed. The patient met the criteria for CPAP initiation. The patient was started on 5 cm water and titrated to 7 cm water. At the final pressure, the patient slept for 94 minutes. The patient's AHI was reduced to only 3 per hour. However, her oxygen saturations still remained in the mid 70s to high 80s with a lowest of 61%. The patient would benefit from oxygen at 2-3 liters with the CPAP. The patient used a small nasal pillows. The patient had lateral REM sleep at the final pressure. IMPRESSION: 1. Moderate obstructive sleep apnea with worsening during supine sleep. Total AHI 18 per hour with a supine AHI of 29 per hour. Absence of REM sleep during the diagnostic portion can underestimate the severity of sleep apnea. 2. Nocturnal hypoxia, not completely resolved with CPAP. Likely component of underlying pulmonary or cardiac disease. 3. No significant periodic limb movements in sleep. RECOMMENDATIONS: 1. CPAP at 7 cm water with 3 liters of supplemental oxygen should be used on a nightly basis. 2. The patient should have a followup nocturnal oximetry study while on current CPAP and 3 liters of oxygen to assess the need to any further titration of oxygen. 3. Follow up for compliance per protocol. 4. Avoid [employer] depressants. 5. Cautioned regarding driving until symptoms of sleep apnea resolve with the use of CPAP. YASMEEN DR: Venkatesh TID: [id number] CC: GIOVANNA HOLLEY MD
== END ==
LOC: SLPLAB 19:02
PROVIDERS: ATTEND Internal Medicine Pulmonary Disease
DX: G47.33 Obstructive sleep apnea (adult) (pediatric) (principal); R09.02 Hypoxemia; I27.20 Pulmonary hypertension, unspecified
CPT/HCPCS: 95810